=== PATIENT | female | born 1980 | race Caucasian/White ===

== ENCOUNTER 2022-12-20 22:29 | Inpatient (IN) | payer OTHER, SELFPAY ==
[2022-12-20 22:45] VITALS: BP 142/68; PULSE 89; RESP 16; TEMP 36.6; O2SAT 95
[2022-12-20 23:32] VITALS: BMI 26.2
[2022-12-20] MEDS: traZODone HCL 50 MG TABLET PO (23:38)
[2022-12-20] MEDS: hydrOXYzine HCL 25 MG TABLET PO (23:38)
--- NOTE | 2022-12-21 01:22 | PC.ADMIT ---
Addendum entered by Sarah Jung 12/21/22 02:15: Wilmar was admitted to [facility] from [facility] ER, arrived on unit at 2240 via stretcher accompanied by EMS staff. CV signed prior to coming on to the unit. Covid-19 negative, labs WNL. Admit diagnosis PTSD; Bipolar disorder; anxiety. Medical diagnosis includes pancreatitis (requires low fat diet), thyroid disease; osteopenia/osteoporosis; Heart disorder/palpitations; asthma; gastroparesis; fibromyalgia; mixed connective tissue disease; endometriosis and lumbar disc prolapse. Reason for [facility] admit was increased feelings of anxiety, and feeling overwhelmed R/T PTSD symptoms. She has a history of SIB (cutting), urges increased, chronic presence of passive SI, no plan. Wilmar reports decompensation for 2 weeks. She was engaged in admission assessment, ad-dima; A/O x 3, skin/sharps check completed, independent with ADL's, no skin integrity impairment, multiple tattoos; denied SI/AVH, SIB urge present, I want to cut. verbalized she is able to ignore urge and will contact staff if urge becomes overwhelming. Prescribed HS meds given prior to transfer, prn for insomnia given. Unit tour given. She called her before going to bed. Hospitalist notified. Plan of care initiated, 15 min unit safety observation. Original Note: Wilmar was admitted to [facility] from [facility] ER, arrived on unit at 2240 via stretcher accompanied by EMS staff. Covid-19 negative, labs WNL. Admit diagnosis PTSD; Bipolar disorder; anxiety. Medical diagnosis includes pancreatitis (requires low fat diet), thyroid disease; osteopenia/osteoporosis; Heart disorder/palpitations; asthma; gastroparesis; fibromyalgia; mixed connective tissue disease; endometriosis and lumbar disc prolapse. Reason for [facility] admit was increased feelings of anxiety, and feeling overwhelmed R/T PTSD symptoms. She has a history of SIB (cutting), urges increased, chronic presence of passive SI, no plan. Wilmar reports decompensation for 2 weeks. She was engaged in admission assessment, ad-dima; A/O x 3, skin/sharps check completed, independent with ADL's, no skin integrity impairment, multiple tattoos; denied SI/AVH, SIB urge present, I want to cut. verbalized she is able to ignore urge and will contact staff if urge becomes overwhelming. Prescribed HS meds given prior to transfer, prn for insomnia given. Unit tour given. She called her before going to bed. Hospitalist notified. Plan of care initiated, 15 min unit safety observation.
[2022-12-21 07:05] LABS: Lithium 0.39 mmol/L (0.60-1.20)
[2022-12-21 07:15] LABS: Alanine Aminotransferase 17 U/L (0-31); Albumin Level 4.4 g/dL (3.5-5.0); Alkaline Phosphatase 84 U/L (39-117); Anion Gap 11 (12-20); Aspartate Amino Transferase 16 U/L (5-31); Bilirubin Total 0.6 mg/dL (0.0-1.0); Blood Urea Nitrogen 10 mg/dL (9-16); Calcium 9.7 mg/dL (8.4-10.2); Carbon Dioxide 29 mmol/L (22-29); Chloride 106 mmol/L (96-108); Cholesterol 194 mg/dL; Creatinine Clr Calc Pharmacy 93.3; Estimated Glomerular Filt Rate > 60; Glucose Fasting 108 mg/dL (60-99); HDL Cholesterol 39 mg/dL; LDL Cholesterol Calculated 143 mg/dl; Potassium 4.1 mmol/L (3.3-5.1); Sodium 142 mmol/L (135-145); Total Protein 7.2 g/dL (6.5-8.0); Triglycerides 64 mg/dL
[2022-12-21 10:24] VITALS: BP 122/84; PULSE 124; RESP 18; TEMP 36.6; O2SAT 98
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
[2022-12-21] MEDS: hydrOXYzine HCL 25 MG TABLET PO (11:42)
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
[2022-12-21] MEDS: LORazepam 1 MG TABLET PO ×2 (14:22→22:10)
[2022-12-21] MEDS: QUEtiapine Fumarate 50 MG TABLET PO ×2 (14:22→22:09)
[2022-12-21 20:20] VITALS: BP 113/75; PULSE 111; RESP 18; TEMP 36.6; O2SAT 99
[2022-12-21] MEDS: QUEtiapine Fumarate 50 MG TABLET 150 MG PO (22:09)
[2022-12-21] MEDS: Lithium Carbonate 300 MG TABLET 600 MG PO (22:09)
[2022-12-21] MEDS: traZODone HCL 50 MG TABLET PO (22:12)
[2022-12-22] MEDS: QUEtiapine Fumarate 50 MG TABLET PO ×3 (09:37→21:44)
[2022-12-22 09:40] VITALS: BP 117/77; PULSE 139; RESP 18; TEMP 36.3; O2SAT 98
[2022-12-22] MEDS: LORazepam 1 MG TABLET PO ×3 (09:40→21:44)
--- NOTE | 2022-12-22 10:58 | P.PNPSI_ITS ---
Subjective Subjective Date of Service: 12/22/22 Reason For Visit: Unspecified Stress and Trauma related disorder Subjective Notes: Conditional Voluntary Interim History: The nursing staff reported the patient slept well needed and p.r.n. at night. She remains dysphoric but able to cope with the stressors. On interview the patient denies new symptoms still dysphoric, very labile mood, tearful at times. NO side effects with the recent change of medications. Mental Status Exam Mental Status Exam Patient Appearance: Well Grooomed and Appropriate Patient Orientation: Person and Situation Level of Consciousness: Awake and Appropriate Patient Behavior: Passive Mood Description: Withdrawn Affect Description: Constricted Patient Cognition Impaired: Yes Ability to Follow Directions: Good Speech Pattern: Clear Hallucinations: None Delusions: Not Present Thought Process: Linear Thought Content: positive for Bryce and positive for Circumstantial Judgement: Fair Diagnostics Vital Signs (24Hr): Vital Signs - 24 hr 12/21/22 20:20 12/22/22 09:40 Temperature 97.9 F 97.3 F Pulse Rate 111 H 139 H Respiratory Rate 18 18 Blood Pressure 113/75 117/77 Pulse Oximetry 99 98 Oxygen Delivery Method Room Air Room Air BMI result Body Mass Index 26.2 Labs 12/21/22 06:42 Labs: Laboratory Results - last 48 hr 12/21/22 12/21/22 06:42 06:42 Sodium 142 Potassium 4.1 Chloride 106 Carbon Dioxide 29 Anion Gap 11 L BUN 10 Creatinine 0.77 Estim Creat Clear Calc 93.3 Estimated GFR > 60 Fasting Glucose 108 H Calcium 9.7 Total Bilirubin 0.6 AST 16 ALT 17 Alkaline Phosphatase 84 Total Protein 7.2 Albumin 4.4 Triglycerides 64 Cholesterol 194 LDL Cholesterol, Calc 143 HDL Cholesterol 39 [place] 0.39 L Medications Medications Current Medications Acetaminophen (Acetaminophen 325 Mg Tablet) 650 mg PO Q6H PRN PRN Reason: Headache/Pain Mild Scale (1-3) Al Hydroxide/Mg Hydroxide (Magnesium Hydrox/Alum Hydrox 30 Ml Oral.Susp) 30 ml PO Q6H PRN PRN Reason: Heartburn/Nausea Albuterol Sulfate (Albuterol Sulfate 90 Mcg 8 Gm Inhaler) 2 puff INHALE QID PRN PRN Reason: wheezing Hydroxyzine HCl (Hydroxyzine Hcl 25 Mg Tablet) 25 mg PO Q6H PRN PRN Reason: Anxiety Last Admin: 12/21/22 11:42 Dose: 25 mg [place] Carbonate ([place] Carbonate 300 Mg Tablet) 600 mg PO BEDTIME ELTON Last Admin: 12/21/22 22:09 Dose: 600 mg Lorazepam (Lorazepam 1 Mg Tablet) 1 mg PO BEDTIME ELTON Last Admin: 12/21/22 22:10 Dose: 1 mg Lorazepam (Lorazepam 1 Mg Tablet) 1 mg PO Q6H PRN PRN Reason: severe anxiety Last Admin: 12/22/22 09:40 Dose: 1 mg Magnesium Hydroxide (Milk Of Magnesia 30 Ml Oral.Susp) 30 ml PO DAILY PRN PRN Reason: Constipation Quetiapine Fumarate (Quetiapine Fumarate 50 Mg Tablet) 150 mg PO BEDTIME ELTON Last Admin: 12/21/22 22:09 Dose: 150 mg Quetiapine Fumarate (Quetiapine Fumarate 50 Mg Tablet) 50 mg PO TID ELTON Last Admin: 12/22/22 09:37 Dose: 50 mg Trazodone HCl (Trazodone Hcl 50 Mg Tablet) 50 mg PO BEDTIME MRX1 PRN PRN Reason: Insomnia Last Admin: 12/21/22 22:12 Dose: 50 mg Allergies Allergies Allergy/AdvReac Type Severity Reaction Status Date / Time Beta-Blockers Allergy Hives Verified 12/21/22 01:52 (Beta-Adrenergic Bloc cephalexin [From Keflex] Allergy Vomiting Verified 12/21/22 01:52 Cephalosporins Allergy Nausea and Verified 12/21/22 01:52 Vomiting erythromycin base Allergy Hives Verified 12/21/22 01:52 Penicillins [PCN] Allergy Nausea and Verified 12/21/22 01:52 Vomiting shellfish derived Allergy Anaphylaxis Verified 12/21/22 00:07 strawberry Allergy Anaphylaxis Verified 12/21/22 00:07 tomato Allergy Anaphylaxis Verified 12/21/22 00:07 verapamil Allergy Hives Verified 12/21/22 01:52 latex AdvReac Swelling Verified 12/21/22 01:52 Assessment & Plan Assessment & Plan (1) Bipolar disorder: Status: Acute Code(s): F31.9 - Bipolar disorder, unspecified (2) Posttraumatic stress disorder: Status: Acute Code(s): F43.10 - Post-traumatic stress disorder, unspecified (3) Personality disorder: Status: Acute Code(s): F60.9 - Personality disorder, unspecified Plan The patient is an adult female with a long history of PTSD, cluster B personality traits and bipolar disorder who was admitted into the facility for exacerbation of depression for the last 2 week with neurovegetative symptoms and suicidal ideation. Recently her outpatient psychiatrist tried to start her on lithium. Plan 1. Gather collateral information. 2. Continue lithium 600 mg p.o. q.h.s.. 3. Continue Seroquel 150 p.o. q.h.s. and 50 p.o. t.i.d. as per med reconciliation. 4. At the low dose of Ativan p.r.n. for severe anxiety. 5. Reassessment with results. 6. [place] level on 2 days AM. TSH, Lith and BMP Reason for continued inpatient stay Substantial Risk for: inability to function, rapid decompensation and med/psych decompensation Time Spent With Patient Time: Total time managing care of this patient today __20__ minutes.
[2022-12-22 21:35] VITALS: BP 131/77; PULSE 113; RESP 16; TEMP 35.8; O2SAT 100
[2022-12-22] MEDS: Lithium Carbonate 300 MG TABLET 600 MG PO (21:44)
[2022-12-22] MEDS: traZODone HCL 50 MG TABLET PO (21:44)
[2022-12-22] MEDS: Prazosin HCL 1 MG CAPSULE 2 MG PO (21:44)
[2022-12-22] MEDS: QUEtiapine Fumarate 50 MG TABLET 150 MG PO (21:44)
[2022-12-23] MEDS: Acetaminophen 325 MG TABLET 650 MG PO (06:58)
[2022-12-23 08:44] VITALS: BP 121/68; PULSE 110; RESP 18; TEMP 36.6; O2SAT 99
[2022-12-23] MEDS: QUEtiapine Fumarate 50 MG TABLET PO ×3 (09:01→20:44)
[2022-12-23] MEDS: LORazepam 1 MG TABLET PO ×3 (11:44→20:44)
[2022-12-23] MEDS: hydrOXYzine HCL 25 MG TABLET PO ×2 (14:31→20:45)
--- NOTE | 2022-12-23 16:44 | HO.PSYCHPN ---
Subjective Subjective Date of Service: 12/23/22 Reason For Visit: Unspecified Stress and Trauma related disorder Interim History: reporting most medications have not worked to help with her PTSD Sx and insomnia. agrees to increase prazosin to 3 mg tonight. denies SI but endorses SIBI, which she reports is daily. discussion held re best Txs for PTSD and SIB, i.e. EBTs for PTSD and DBT. pt encouraged to pursue those treatments after discharge. per staff, intrusive thoughts of self-harm. nightmares. racing thoughts. flashbacks. started on prazosin last night without effect. Mental Status Exam Mental Status Exam Narrative: tattoos. adequately dressed and groomed. cooperative. no PMA/PMR. speech nml rate, amount, loudness, tone, latency. thoughts linear and logical. affect constricted, normo-intense, non-labile. mood subdued. denies SI. +SIBI, daily, chronic. Diagnostics Vital Signs (24Hr): Vital Signs - 24 hr 12/22/22 21:35 12/23/22 08:44 Temperature 96.5 F L 97.8 F Pulse Rate 113 H 110 H Respiratory Rate 16 18 Blood Pressure 131/77 121/68 Pulse Oximetry 100 99 Oxygen Delivery Method Room Air Room Air BMI result Body Mass Index 26.2 Labs 12/21/22 06:42 Medications Medications Current Medications Acetaminophen (Acetaminophen 325 Mg Tablet) 650 mg PO Q6H PRN PRN Reason: Headache/Pain Mild Scale (1-3) Last Admin: 12/23/22 06:58 Dose: 650 mg Al Hydroxide/Mg Hydroxide (Magnesium Hydrox/Alum Hydrox 30 Ml Oral.Susp) 30 ml PO Q6H PRN PRN Reason: Heartburn/Nausea Albuterol Sulfate (Albuterol Sulfate 90 Mcg 8 Gm Inhaler) 2 puff INHALE QID PRN PRN Reason: wheezing Hydroxyzine HCl (Hydroxyzine Hcl 25 Mg Tablet) 25 mg PO Q6H PRN PRN Reason: Anxiety Last Admin: 12/23/22 14:31 Dose: 25 mg [place] Carbonate ([place] Carbonate 300 Mg Tablet) 600 mg PO BEDTIME [place] Last Admin: 12/22/22 21:44 Dose: 600 mg Lorazepam (Lorazepam 1 Mg Tablet) 1 mg PO BEDTIME [place] Last Admin: 12/22/22 21:44 Dose: 1 mg Lorazepam (Lorazepam 1 Mg Tablet) 1 mg PO Q6H PRN PRN Reason: severe anxiety Last Admin: 12/23/22 11:44 Dose: 1 mg Magnesium Hydroxide (Milk Of Magnesia 30 Ml Oral.Susp) 30 ml PO DAILY PRN PRN Reason: Constipation Prazosin HCl (Prazosin Hcl 1 Mg Capsule) 3 mg PO BEDTIME [place]; Protocol Quetiapine Fumarate (Quetiapine Fumarate 50 Mg Tablet) 150 mg PO BEDTIME LETON Last Admin: 12/22/22 21:44 Dose: 150 mg Quetiapine Fumarate (Quetiapine Fumarate 50 Mg Tablet) 50 mg PO TID [place] Last Admin: 12/23/22 14:21 Dose: 50 mg Trazodone HCl (Trazodone Hcl 50 Mg Tablet) 50 mg PO BEDTIME MRX1 PRN PRN Reason: Insomnia Last Admin: 12/22/22 21:44 Dose: 50 mg Allergies Allergies Allergy/AdvReac Type Severity Reaction Status Date / Time Beta-Blockers Allergy Hives Verified 12/21/22 01:52 (Beta-Adrenergic Bloc cephalexin [From Keflex] Allergy Vomiting Verified 12/21/22 01:52 Cephalosporins Allergy Nausea and Verified 12/21/22 01:52 Vomiting erythromycin base Allergy Hives Verified 12/21/22 01:52 Penicillins [PCN] Allergy Nausea and Verified 12/21/22 01:52 Vomiting shellfish derived Allergy Anaphylaxis Verified 12/21/22 00:07 strawberry Allergy Anaphylaxis Verified 12/21/22 00:07 tomato Allergy Anaphylaxis Verified 12/21/22 00:07 verapamil Allergy Hives Verified 12/21/22 01:52 latex AdvReac Swelling Verified 12/21/22 01:52 Assessment & Plan Assessment & Plan (1) Bipolar disorder: Status: Acute Code(s): F31.9 - Bipolar disorder, unspecified (2) Posttraumatic stress disorder: Status: Acute Code(s): F43.10 - Post-traumatic stress disorder, unspecified (3) Personality disorder: Status: Acute Code(s): F60.9 - Personality disorder, unspecified Plan The patient is an adult female with a long history of PTSD, cluster B personality traits and bipolar disorder who was admitted into the facility for exacerbation of depression for the last 2 week with neurovegetative symptoms and suicidal ideation. Recently her outpatient psychiatrist tried to start her on lithium. Plan 1. Gather collateral information. 2. Continue lithium 600 mg p.o. q.h.s.. 3. Continue Seroquel 150 p.o. q.h.s. and 50 p.o. t.i.d. as per med reconciliation. 4. At the low dose of Ativan p.r.n. for severe anxiety. 5. Reassessment with results. 6. [place] level on 2 days AM. TSH, Lith and BMP 12/23: continue prazosin titration to 3 mg tonight. otherwise continue current mgmt. no SI. +SIBI, which is daily at baseline. Reason for continued inpatient stay Substantial Risk for: harm to self, inability to function and rapid decompensation Time Spent With Patient Time: Total time managing care of this patient today __25__ minutes.
[2022-12-23 20:35] VITALS: BP 125/79; PULSE 122; RESP 18; TEMP 36.6; O2SAT 97
[2022-12-23] MEDS: Lithium Carbonate 300 MG TABLET 600 MG PO (20:44)
[2022-12-23] MEDS: QUEtiapine Fumarate 50 MG TABLET 150 MG PO (20:44)
[2022-12-23] MEDS: traZODone HCL 50 MG TABLET PO (20:44)
[2022-12-23] MEDS: Prazosin HCL 1 MG CAPSULE 3 MG PO (20:45)
[2022-12-24] MEDS: hydrOXYzine HCL 25 MG TABLET PO ×2 (04:03→09:19)
[2022-12-24 09:00] VITALS: BP 123/62; PULSE 130; RESP 16; TEMP 36.6; O2SAT 97
[2022-12-24] MEDS: QUEtiapine Fumarate 50 MG TABLET PO ×3 (09:01→20:52)
[2022-12-24 12:05] VITALS: BP 143/86; PULSE 121; O2SAT 99
[2022-12-24] MEDS: Prazosin HCL 1 MG CAPSULE PO ×2 (12:06→14:58)
[2022-12-24] MEDS: LORazepam 1 MG TABLET PO ×3 (12:10→20:51)
--- NOTE | 2022-12-24 14:34 | HO.PSYCHPN ---
Subjective Subjective Date of Service: 12/24/22 Reason For Visit: Unspecified Stress and Trauma related disorder Interim History: reporting SIBI worse today. tearful, feeling frustrated at continued/worsened Sx. had a couple nightmares last night, agreeable to increase prazosin to 4 mg at HS. also reporting hydroxyzine 25 inadequate, agrees to trial of 50 mg each dose. for daytime anxiety, agrees to have doses of prazosin 1 mg scheduled at 0900 and 1500. per staff, c/o poor sleep 2/2 uncomfortable beds. passive SI. no plans. awakened a couple of times overnight. Mental Status Exam Mental Status Exam Narrative: tattoos. adequately dressed and groomed. cooperative. no PMA/PMR. speech nml rate, amount, loudness, tone, latency. thoughts linear and logical. affect constricted, normo-intense, min-labile (some teariness). mood depressed and anxious. no SI/HI/AVH expressed. +SIBI, daily, chronic, worse today than yesterday. Diagnostics Vital Signs (24Hr): Vital Signs - 24 hr 12/23/22 20:35 12/24/22 09:00 12/24/22 12:05 Temperature 97.9 F 97.8 F Pulse Rate 122 H 130 H 121 H Respiratory Rate 18 16 Blood Pressure 125/79 123/62 143/86 H Pulse Oximetry 97 97 99 Oxygen Delivery Method Room Air Room Air BMI result Body Mass Index 26.2 Labs 12/21/22 06:42 Medications Medications Current Medications Acetaminophen (Acetaminophen 325 Mg Tablet) 650 mg PO Q6H PRN PRN Reason: Headache/Pain Mild Scale (1-3) Last Admin: 12/23/22 06:58 Dose: 650 mg Al Hydroxide/Mg Hydroxide (Magnesium Hydrox/Alum Hydrox 30 Ml Oral.Susp) 30 ml PO Q6H PRN PRN Reason: Heartburn/Nausea Albuterol Sulfate (Albuterol Sulfate 90 Mcg 8 Gm Inhaler) 2 puff INHALE QID PRN PRN Reason: wheezing Hydroxyzine HCl (Hydroxyzine Hcl 50 Mg Tablet) 50 mg PO Q4H PRN PRN Reason: Anxiety [place] Carbonate ([place] Carbonate 300 Mg Tablet) 600 mg PO BEDTIME [place] Last Admin: 12/23/22 20:44 Dose: 600 mg Lorazepam (Lorazepam 1 Mg Tablet) 1 mg PO BEDTIME [place] Last Admin: 12/23/22 20:44 Dose: 1 mg Lorazepam (Lorazepam 1 Mg Tablet) 1 mg PO Q6H PRN PRN Reason: severe anxiety Last Admin: 12/24/22 12:10 Dose: 1 mg Magnesium Hydroxide (Milk Of Magnesia 30 Ml Oral.Susp) 30 ml PO DAILY PRN PRN Reason: Constipation Prazosin HCl (Prazosin Hcl 1 Mg Capsule) 4 mg PO BEDTIME [place]; Protocol Prazosin HCl (Prazosin Hcl 1 Mg Capsule) 1 mg PO BID@0900,1500 [place]; Protocol Last Admin: 12/24/22 12:06 Dose: 1 mg Quetiapine Fumarate (Quetiapine Fumarate 50 Mg Tablet) 150 mg PO BEDTIME [place] Last Admin: 12/23/22 20:44 Dose: 150 mg Quetiapine Fumarate (Quetiapine Fumarate 50 Mg Tablet) 50 mg PO TID [place] Last Admin: 12/24/22 09:01 Dose: 50 mg Trazodone HCl (Trazodone Hcl 50 Mg Tablet) 50 mg PO BEDTIME MRX1 PRN PRN Reason: Insomnia Last Admin: 12/23/22 20:44 Dose: 50 mg Allergies Allergies Allergy/AdvReac Type Severity Reaction Status Date / Time Beta-Blockers Allergy Hives Verified 12/21/22 01:52 (Beta-Adrenergic Bloc cephalexin [From Keflex] Allergy Vomiting Verified 12/21/22 01:52 Cephalosporins Allergy Nausea and Verified 12/21/22 01:52 Vomiting erythromycin base Allergy Hives Verified 12/21/22 01:52 Penicillins [PCN] Allergy Nausea and Verified 12/21/22 01:52 Vomiting shellfish derived Allergy Anaphylaxis Verified 12/21/22 00:07 strawberry Allergy Anaphylaxis Verified 12/21/22 00:07 tomato Allergy Anaphylaxis Verified 12/21/22 00:07 verapamil Allergy Hives Verified 12/21/22 01:52 latex AdvReac Swelling Verified 12/21/22 01:52 Assessment & Plan Assessment & Plan (1) Bipolar disorder: Status: Acute Code(s): F31.9 - Bipolar disorder, unspecified (2) Posttraumatic stress disorder: Status: Acute Code(s): F43.10 - Post-traumatic stress disorder, unspecified (3) Personality disorder: Status: Acute Code(s): F60.9 - Personality disorder, unspecified Plan The patient is an adult female with a long history of PTSD, cluster B personality traits and bipolar disorder who was admitted into the facility for exacerbation of depression for the last 2 week with neurovegetative symptoms and suicidal ideation. Recently her outpatient psychiatrist tried to start her on lithium. Plan 1. Gather collateral information. 2. Continue lithium 600 mg p.o. q.h.s.. 3. Continue Seroquel 150 p.o. q.h.s. and 50 p.o. t.i.d. as per med reconciliation. 4. At the low dose of Ativan p.r.n. for severe anxiety. 5. Reassessment with results. 6. [place] level on 2 days AM. TSH, Lith and BMP 12/23: continue prazosin titration to 3 mg tonight. otherwise continue current mgmt. no SI. +SIBI, which is daily at baseline. 12/24: continue prazosin titration to 4 mg tonight. increase hydroxyzine PRNs from 25 mg each to 50 mg each. start prazosin 1 mg at 0900 and 1500 for chronic anxiety. Reason for continued inpatient stay Substantial Risk for: harm to self, inability to function and rapid decompensation Time Spent With Patient Time: Total time managing care of this patient today __25__ minutes.
[2022-12-24 20:45] VITALS: BP 125/71; PULSE 99; RESP 18; TEMP 36.6; O2SAT 99
[2022-12-24] MEDS: Prazosin HCL 1 MG CAPSULE 4 MG PO (20:51)
[2022-12-24] MEDS: Lithium Carbonate 300 MG TABLET 600 MG PO (20:51)
[2022-12-24] MEDS: traZODone HCL 50 MG TABLET PO ×2 (20:51→23:15)
[2022-12-24] MEDS: QUEtiapine Fumarate 50 MG TABLET 150 MG PO (20:52)
[2022-12-24] MEDS: hydrOXYzine HCL 50 MG TABLET PO (23:15)
[2022-12-25 08:22] VITALS: BP 138/79; PULSE 118; RESP 18; TEMP 36.6; O2SAT 97
[2022-12-25] MEDS: Prazosin HCL 1 MG CAPSULE PO (08:43)
[2022-12-25] MEDS: QUEtiapine Fumarate 50 MG TABLET PO ×3 (08:43→20:32)
[2022-12-25] MEDS: hydrOXYzine HCL 50 MG TABLET PO ×4 (08:47→22:58)
[2022-12-25 09:06] LABS: Lithium 0.43 mmol/L (0.60-1.20)
[2022-12-25 09:07] LABS: Lithium 0.45 mmol/L (0.60-1.20)
[2022-12-25 09:18] LABS: Anion Gap 14 (12-20); Blood Urea Nitrogen 13 mg/dL (9-16); Calcium 9.9 mg/dL (8.4-10.2); Carbon Dioxide 28 mmol/L (22-29); Chloride 103 mmol/L (96-108); Creatinine Clr Calc Pharmacy 93.3; Estimated Glomerular Filt Rate > 60; Glucose Random 113 mg/dL (60-115); Potassium 4.5 mmol/L (3.3-5.1); Sodium 140 mmol/L (135-145)
[2022-12-25 09:37] LABS: Thyroid Stimulating Hormone 1.33 uIU/mL (0.32-4.0)
[2022-12-25] MEDS: LORazepam 1 MG TABLET PO ×2 (10:19→20:32)
[2022-12-25 15:11] VITALS: BP 105/63; PULSE 117; RESP 16
[2022-12-25] MEDS: Prazosin HCL 1 MG CAPSULE 2 MG PO (15:14)
--- NOTE | 2022-12-25 15:20 | P.PNPSI_ITS ---
Subjective Subjective Date of Service: 12/25/22 Reason For Visit: Unspecified Stress and Trauma related disorder Interim History: tearful. feels anxiety meds aren't working. denies side effects from prazosin, agrees to increase prazosin from to 2/10/06 today. per staff, visile, tea rful. goal-oriented. racing thoughts. anxiety meds not helping. eating well. poor sleep 2/2 nightmares. +SI, no plan. up x1 overnight, otherwise appeared to have slept. Mental Status Exam Mental Status Exam Narrative: tattoos. adequately dressed and groomed. cooperative. no PMA/PMR. speech nml rate, amount, loudness, tone, latency. thoughts linear and logical. affect constricted, normo-intense, min-labile (some teariness). mood depressed and anxious. no SI/SIBI/HI/AVH expressed. Diagnostics Vital Signs (24Hr): Vital Signs - 24 hr 12/24/22 20:45 12/25/22 08:22 12/25/22 15:11 Temperature 97.9 F 97.8 F Pulse Rate 99 118 H 117 H Respiratory Rate 18 18 16 Blood Pressure 125/71 138/79 105/63 Pulse Oximetry 99 97 Oxygen Delivery Method Room Air Room Air BMI result Body Mass Index 26.2 Labs 12/25/22 08:40 Labs: Laboratory Results - last 48 hr 12/25/22 12/25/22 12/25/22 08:40 08:40 08:40 Sodium 140 Potassium 4.5 Chloride 103 Carbon Dioxide 28 Anion Gap 14 BUN 13 Creatinine 0.77 Estim Creat Clear Calc 93.3 Estimated GFR > 60 Random Glucose 113 Calcium 9.9 TSH 1.33 [place] 0.45 L 0.43 L Medications Medications Current Medications Acetaminophen (Acetaminophen 325 Mg Tablet) 650 mg PO Q6H PRN PRN Reason: Headache/Pain Mild Scale (1-3) Last Admin: 12/23/22 06:58 Dose: 650 mg Al Hydroxide/Mg Hydroxide (Magnesium Hydrox/Alum Hydrox 30 Ml Oral.Susp) 30 ml PO Q6H PRN PRN Reason: Heartburn/Nausea Albuterol Sulfate (Albuterol Sulfate 90 Mcg 8 Gm Inhaler) 2 puff INHALE QID PRN PRN Reason: wheezing Hydroxyzine HCl (Hydroxyzine Hcl 50 Mg Tablet) 50 mg PO Q4H PRN PRN Reason: Anxiety Last Admin: 12/25/22 12:31 Dose: 50 mg [place] Carbonate ([place] Carbonate 300 Mg Tablet) 600 mg PO BEDTIME [place] Last Admin: 12/24/22 20:51 Dose: 600 mg Lorazepam (Lorazepam 1 Mg Tablet) 1 mg PO BEDTIME [place] Last Admin: 12/24/22 20:51 Dose: 1 mg Lorazepam (Lorazepam 1 Mg Tablet) 1 mg PO Q6H PRN PRN Reason: severe anxiety Last Admin: 12/25/22 10:19 Dose: 1 mg Magnesium Hydroxide (Milk Of Magnesia 30 Ml Oral.Susp) 30 ml PO DAILY PRN PRN Reason: Constipation Prazosin HCl (Prazosin Hcl 5 Mg Capsule) 5 mg PO BEDTIME [place]; Protocol Prazosin HCl (Prazosin Hcl 1 Mg Capsule) 2 mg PO BID@0900,1500 [facility]; Protocol Last Admin: 12/25/22 15:14 Dose: 2 mg Quetiapine Fumarate (Quetiapine Fumarate 50 Mg Tablet) 150 mg PO BEDTIME [place] Last Admin: 12/24/22 20:52 Dose: 150 mg Quetiapine Fumarate (Quetiapine Fumarate 50 Mg Tablet) 50 mg PO TID [place] Last Admin: 12/25/22 15:14 Dose: 50 mg Trazodone HCl (Trazodone Hcl 50 Mg Tablet) 50 mg PO BEDTIME MRX1 PRN PRN Reason: Insomnia Last Admin: 12/24/22 23:15 Dose: 50 mg Allergies Allergies Allergy/AdvReac Type Severity Reaction Status Date / Time Beta-Blockers Allergy Hives Verified 12/21/22 01:52 (Beta-Adrenergic Bloc cephalexin [From Keflex] Allergy Vomiting Verified 12/21/22 01:52 Cephalosporins Allergy Nausea and Verified 12/21/22 01:52 Vomiting erythromycin base Allergy Hives Verified 12/21/22 01:52 Penicillins [PCN] Allergy Nausea and Verified 12/21/22 01:52 Vomiting shellfish derived Allergy Anaphylaxis Verified 12/21/22 00:07 strawberry Allergy Anaphylaxis Verified 12/21/22 00:07 tomato Allergy Anaphylaxis Verified 12/21/22 00:07 verapamil Allergy Hives Verified 12/21/22 01:52 latex AdvReac Swelling Verified 12/21/22 01:52 Assessment & Plan Assessment & Plan (1) Bipolar disorder: Status: Acute Code(s): F31.9 - Bipolar disorder, unspecified (2) Posttraumatic stress disorder: Status: Acute Code(s): F43.10 - Post-traumatic stress disorder, unspecified (3) Personality disorder: Status: Acute Code(s): F60.9 - Personality disorder, unspecified Plan The patient is an adult female with a long history of PTSD, cluster B personality traits and bipolar disorder who was admitted into the facility for exacerbation of depression for the last 2 week with neurovegetative symptoms and suicidal ideation. Recently her outpatient psychiatrist tried to start her on lithium. Plan 1. Gather collateral information. 2. Continue lithium 600 mg p.o. q.h.s.. 3. Continue Seroquel 150 p.o. q.h.s. and 50 p.o. t.i.d. as per med reconciliation. 4. At the low dose of Ativan p.r.n. for severe anxiety. 5. Reassessment with results. 6. [place] level on 2 days AM. TSH, Lith and BMP 12/23: continue prazosin titration to 3 mg tonight. otherwise continue current mgmt. no SI. +SIBI, which is daily at baseline. 12/24: continue prazosin titration to 4 mg tonight. increase hydroxyzine PRNs from 25 mg each to 50 mg each. start prazosin 1 mg at 0900 and 1500 for chronic anxiety. 12/25: increase prazosin from 4 to 2//5. otherwise continue current regimen. LM with maciej cordero pt's outpt prescriber, at [phone]. Reason for continued inpatient stay Substantial Risk for: harm to self, inability to function and rapid decompensation Time Spent With Patient Time: Total time managing care of this patient today _25___ minutes.
[2022-12-25 20:30] VITALS: BP 124/88; PULSE 114; RESP 16; TEMP 36.7; O2SAT 98
[2022-12-25] MEDS: QUEtiapine Fumarate 50 MG TABLET 150 MG PO (20:32)
[2022-12-25] MEDS: Lithium Carbonate 300 MG TABLET 600 MG PO (20:32)
[2022-12-25] MEDS: Prazosin HCL 5 MG CAPSULE PO (20:32)
[2022-12-25] MEDS: traZODone HCL 50 MG TABLET PO ×2 (20:53→22:58)
[2022-12-26] MEDS: Acetaminophen 325 MG TABLET 650 MG PO (04:35)
[2022-12-26] MEDS: LORazepam 1 MG TABLET PO ×3 (04:35→20:47)
[2022-12-26 07:00] VITALS: BMI 27.6
[2022-12-26 08:00] VITALS: BP 105/60; PULSE 110; RESP 18; TEMP 36.6; O2SAT 100
[2022-12-26] MEDS: QUEtiapine Fumarate 50 MG TABLET PO ×3 (08:25→23:29)
[2022-12-26] MEDS: Prazosin HCL 1 MG CAPSULE 2 MG PO ×2 (08:26→14:56)
[2022-12-26] MEDS: hydrOXYzine HCL 50 MG TABLET PO ×3 (09:33→19:55)
--- NOTE | 2022-12-26 15:28 | P.PNPSI_ITS ---
Subjective Subjective Date of Service: 12/26/22 Reason For Visit: Unspecified Stress and Trauma related disorder Interim History: calm, cooperative. states she is feeling less emotional today, unsure why. state she is still having overwhelming thoughts of cutting. agrees to increase HS prazosin to 6 mg. detailed discussion held re her Dx and the off- label use of lithium for various indications. Mental Status Exam Mental Status Exam Narrative: tattoos. adequately dressed and groomed. cooperative. no PMA/PMR. speech nml rate, amount, loudness, tone, latency. thoughts linear and logical. affect constricted, normo-intense, non-labile. mood depressed and anxious but feeling less emotional. no SI/SIBI/HI/AVH expressed. Diagnostics Vital Signs (24Hr): Vital Signs - 24 hr 12/25/22 20:30 12/26/22 08:00 Temperature 98.1 F 97.9 F Pulse Rate 114 H 110 H Respiratory Rate 16 18 Blood Pressure 124/88 105/60 Pulse Oximetry 98 100 Oxygen Delivery Method Room Air Room Air BMI result Body Mass Index 27.6 Labs 12/25/22 08:40 Labs: Laboratory Results - last 48 hr 12/25/22 12/25/22 12/25/22 08:40 08:40 08:40 Sodium 140 Potassium 4.5 Chloride 103 Carbon Dioxide 28 Anion Gap 14 BUN 13 Creatinine 0.77 Estim Creat Clear Calc 93.3 Estimated GFR > 60 Random Glucose 113 Calcium 9.9 TSH 1.33 [place] 0.45 L 0.43 L Medications Medications Current Medications Acetaminophen (Acetaminophen 325 Mg Tablet) 650 mg PO Q6H PRN PRN Reason: Headache/Pain Mild Scale (1-3) Last Admin: 12/26/22 04:35 Dose: 650 mg Al Hydroxide/Mg Hydroxide (Magnesium Hydrox/Alum Hydrox 30 Ml Oral.Susp) 30 ml PO Q6H PRN PRN Reason: Heartburn/Nausea Albuterol Sulfate (Albuterol Sulfate 90 Mcg 8 Gm Inhaler) 2 puff INHALE QID PRN PRN Reason: wheezing Hydroxyzine HCl (Hydroxyzine Hcl 50 Mg Tablet) 50 mg PO Q4H PRN PRN Reason: Anxiety Last Admin: 12/26/22 14:59 Dose: 50 mg [place] Carbonate ([place] Carbonate 300 Mg Tablet) 600 mg PO BEDTIME [place] Last Admin: 12/25/22 20:32 Dose: 600 mg Lorazepam (Lorazepam 1 Mg Tablet) 1 mg PO BEDTIME [place] Last Admin: 12/25/22 20:32 Dose: 1 mg Lorazepam (Lorazepam 1 Mg Tablet) 1 mg PO Q6H PRN PRN Reason: severe anxiety Last Admin: 12/26/22 11:45 Dose: 1 mg Magn[place] Hydroxide (Milk Of Magnesia 30 Ml Oral.Susp) 30 ml PO DAILY PRN PRN Reason: Constipation Prazosin HCl (Prazosin Hcl 1 Mg Capsule) 2 mg PO BID@0900,1500 [place]; Protocol Last Admin: 12/26/22 14:56 Dose: 2 mg Prazosin HCl (Prazosin Hcl 1 Mg Capsule) 1 mg PO BEDTIME [place] Prazosin HCl (Prazosin Hcl 5 Mg Capsule) 5 mg PO BEDTIME [place] Quetiapine Fumarate (Quetiapine Fumarate 50 Mg Tablet) 150 mg PO BEDTIME [place] Last Admin: 12/25/22 20:32 Dose: 150 mg Quetiapine Fumarate (Quetiapine Fumarate 50 Mg Tablet) 50 mg PO TID [place] Last Admin: 12/26/22 14:56 Dose: 50 mg Trazodone HCl (Trazodone Hcl 50 Mg Tablet) 50 mg PO BEDTIME MRX1 PRN PRN Reason: Insomnia Last Admin: 12/25/22 22:58 Dose: 50 mg Allergies Allergies Allergy/AdvReac Type Severity Reaction Status Date / Time Beta-Blockers Allergy Hives Verified 12/21/22 01:52 (Beta-Adrenergic Bloc cephalexin [From Keflex] Allergy Vomiting Verified 12/21/22 01:52 Cephalosporins Allergy Nausea and Verified 12/21/22 01:52 Vomiting erythromycin base Allergy Hives Verified 12/21/22 01:52 Penicillins [PCN] Allergy Nausea and Verified 12/21/22 01:52 Vomiting shellfish derived Allergy Anaphylaxis Verified 12/21/22 00:07 strawberry Allergy Anaphylaxis Verified 12/21/22 00:07 tomato Allergy Anaphylaxis Verified 12/21/22 00:07 verapamil Allergy Hives Verified 12/21/22 01:52 latex AdvReac Swelling Verified 12/21/22 01:52 Assessment & Plan Assessment & Plan (1) Bipolar disorder: Status: Acute Code(s): F31.9 - Bipolar disorder, unspecified (2) Posttraumatic stress disorder: Status: Acute Code(s): F43.10 - Post-traumatic stress disorder, unspecified (3) Personality disorder: Status: Acute Code(s): F60.9 - Personality disorder, unspecified Plan The patient is an adult female with a long history of PTSD, cluster B personality traits and bipolar disorder who was admitted into the facility for exacerbation of depression for the last 2 week with neurovegetative symptoms and suicidal ideation. Recently her outpatient psychiatrist tried to start her on lithium. Plan 1. Gather collateral information. 2. Continue lithium 600 mg p.o. q.h.s.. 3. Continue Seroquel 150 p.o. q.h.s. and 50 p.o. t.i.d. as per med reconc iliation. 4. At the low dose of Ativan p.r.n. for severe anxiety. 5. Reassessment with results. 6. [place] level on 2 days AM. TSH, Lith and BMP 12/23: continue prazosin titration to 3 mg tonight. otherwise continue current mgmt. no SI. +SIBI, which is daily at baseline. 12/24: continue prazosin titration to 4 mg tonight. increase hydroxyzine PRNs from 25 mg each to 50 mg each. start prazosin 1 mg at 0900 and 1500 for chronic anxiety. 12/25: increase prazosin from to 2//. otherwise continue current regimen. LM with maciej mcdonald, pt's outpt prescriber, at [phone]. 12/26: increase prazosin from // --> 2//6. exchanging messages with Dr. Mcdonald. Patient educated on: diagnosis and medication risk/benefits Reason for continued inpatient stay Substantial Risk for: harm to self, inability to function and rapid decompensation Time Spent With Patient Time: Total time managing care of this patient today __35__ minutes.
[2022-12-26 20:15] VITALS: BP 121/81; PULSE 117; RESP 18; TEMP 36.2; O2SAT 98
[2022-12-26] MEDS: QUEtiapine Fumarate 50 MG TABLET 150 MG PO (20:47)
--- NOTE | 2022-12-26 22:41 | PC.NURSE ---
Wilmar is noted to be visible and social with select peers she is pleasant and cooperative upon approach. she c/o anxiety and was given Atarax with minimal effect, she was given her HS Seroquel and Ativan with positive effect. this information writer reviewed 4 square and pursed lip breathing techniques with the patient with the patient return demonstrating and stating understanding. this RN will also be reviewing visualization techniques prior to her retiring for the evening. monitor for safety, continue Plan of Care
[2022-12-26] MEDS: Prazosin HCL 1 MG CAPSULE PO (23:24)
[2022-12-26] MEDS: Prazosin HCL 5 MG CAPSULE PO (23:24)
[2022-12-26] MEDS: Lithium Carbonate 300 MG TABLET 600 MG PO (23:25)
[2022-12-26] MEDS: Cyproheptadine HCl 4 MG TABLET PO (23:25)
[2022-12-27] MEDS: traZODone HCL 50 MG TABLET PO (02:11)
[2022-12-27] MEDS: LORazepam 1 MG TABLET PO ×5 (02:11→22:51)
[2022-12-27 08:00] VITALS: BP 115/71; PULSE 136; RESP 16; TEMP 36.4; O2SAT 98
[2022-12-27] MEDS: Prazosin HCL 1 MG CAPSULE 2 MG PO ×2 (08:21→14:41)
[2022-12-27] MEDS: QUEtiapine Fumarate 50 MG TABLET PO ×3 (08:21→22:51)
[2022-12-27] MEDS: hydrOXYzine HCL 50 MG TABLET PO ×2 (08:26→15:44)
--- NOTE | 2022-12-27 16:44 | P.PNPSI_ITS ---
Subjective Subjective Date of Service: 12/27/22 Reason For Visit: Unspecified Stress and Trauma related disorder Interim History: pt continues to sleep inadequately. contact with dr. mcdonald last night discussed. agreeable to increase periactin to 8 mg tonight and prazosin to 8 mg as well. per staff, had a rough day yesterday. ruminating on her trauma. disrupted sleep. addicted to cutting. +SIBI. + grps. pleasant, polite, anxious/depressed. up for 2 hours in the middle of the night. Mental Status Exam Mental Status Exam Narrative: tattoos. adequately dressed and groomed. cooperative. no PMA/PMR. speech nml rate, amount, loudness, tone, latency. thoughts linear and logical. affect constricted, normo-intense, mod-labile (crying). mood depressed and anxious. +SIBI. no SI/HI/AVH expressed. Diagnostics Vital Signs (24Hr): Vital Signs - 24 hr 12/26/22 20:15 12/27/22 08:00 Temperature 97.2 F 97.6 F Pulse Rate 117 H 136 H Respiratory Rate 18 16 Blood Pressure 121/81 115/71 Pulse Oximetry 98 98 Oxygen Delivery Method Room Air Room Air BMI result Body Mass Index 27.6 Labs 12/25/22 08:40 Medications Medications Current Medications Acetaminophen (Acetaminophen 325 Mg Tablet) 650 mg PO Q6H PRN PRN Reason: Headache/Pain Mild Scale (1-3) Last Admin: 12/26/22 04:35 Dose: 650 mg Al Hydroxide/Mg Hydroxide (Magnesium Hydrox/Alum Hydrox 30 Ml Oral.Susp) 30 ml PO Q6H PRN PRN Reason: Heartburn/Nausea Albuterol Sulfate (Albuterol Sulfate 90 Mcg 8 Gm Inhaler) 2 puff INHALE QID PRN PRN Reason: wheezing Cyproheptadine HCl (Cyproheptadine Hcl 4 Mg Tablet) 8 mg PO BEDTIME [place] Hydroxyzine HCl (Hydroxyzine Hcl 50 Mg Tablet) 50 mg PO Q4H PRN PRN Reason: Anxiety Last Admin: 12/27/22 15:44 Dose: 50 mg [place] Carbonate ([place] Carbonate 300 Mg Tablet) 600 mg PO BEDTIME [place] Last Admin: 12/26/22 23:25 Dose: 600 mg Lorazepam (Lorazepam 1 Mg Tablet) 1 mg PO BEDTIME [place] Last Admin: 12/26/22 20:47 Dose: 1 mg Lorazepam (Lorazepam 1 Mg Tablet) 1 mg PO Q6H PRN PRN Reason: severe anxiety Last Admin: 12/27/22 15:44 Dose: 1 mg Magnesium Hydroxide (Milk Of Magnesia 30 Ml Oral.Susp) 30 ml PO DAILY PRN PRN Reason: Constipation Prazosin HCl (Prazosin Hcl 1 Mg Capsule) 2 mg PO BID@0900,1500 [place]; Protocol Last Admin: 12/27/22 14:41 Dose: 2 mg Prazosin HCl (Prazosin Hcl 5 Mg Capsule) 5 mg PO BEDTIME [place] Last Admin: 12/26/22 23:24 Dose: 5 mg Prazosin HCl (Prazosin Hcl 1 Mg Capsule) 3 mg PO BEDTIME [place] Quetiapine Fumarate (Quetiapine Fumarate 50 Mg Tablet) 150 mg PO BEDTIME [facility] Last Admin: 12/26/22 20:47 Dose: 150 mg Quetiapine Fumarate (Quetiapine Fumarate 50 Mg Tablet) 50 mg PO TID [facility] Last Admin: 12/27/22 14:41 Dose: 50 mg Trazodone HCl (Trazodone Hcl 50 Mg Tablet) 50 mg PO BEDTIME MRX1 PRN PRN Reason: Insomnia Last Admin: 12/27/22 02:11 Dose: 50 mg Allergies Allergies Allergy/AdvReac Type Severity Reaction Status Date / Time Beta-Blockers Allergy Hives Verified 12/21/22 01:52 (Beta-Adrenergic Bloc cephalexin [From Keflex] Allergy Vomiting Verified 12/21/22 01:52 Cephalosporins Allergy Nausea and Verified 12/21/22 01:52 Vomiting erythromycin base Allergy Hives Verified 12/21/22 01:52 Penicillins [PCN] Allergy Nausea and Verified 12/21/22 01:52 Vomiting shellfish derived Allergy Anaphylaxis Verified 12/21/22 00:07 strawberry Allergy Anaphylaxis Verified 12/21/22 00:07 tomato Allergy Anaphylaxis Verified 12/21/22 00:07 verapamil Allergy Hives Verified 12/21/22 01:52 latex AdvReac Swelling Verified 12/21/22 01:52 Assessment & Plan Assessment & Plan (1) Bipolar disorder: Status: Acute Code(s): F31.9 - Bipolar disorder, unspecified (2) Posttraumatic stress disorder: Status: Acute Code(s): F43.10 - Post-traumatic stress disorder, unspecified (3) Personality disorder: Status: Acute Code(s): F60.9 - Personality disorder, unspecified Plan The patient is an adult female with a long history of PTSD, cluster B personality traits and bipolar disorder who was admitted into the facility for exacerbation of depression for the last 2 week with neurovegetative symptoms and suicidal ideation. Recently her outpatient psychiatrist tried to start her on lithium. Plan 1. Gather collateral information. 2. Continue lithium 600 mg p.o. q.h.s.. 3. Continue Seroquel 150 p.o. q.h.s. and 50 p.o. t.i.d. as per med reconciliation. 4. At the low dose of Ativan p.r.n. for severe anxiety. 5. Reassessment with results. 6. [place] level on 2 days AM. TSH, Lith and BMP 12/23: continue prazosin titration to 3 mg tonight. otherwise continue current mgmt. no SI. +SIBI, which is daily at baseline. 12/24: continue prazosin titration to 4 mg tonight. increase hydroxyzine PRNs from 25 mg each to 50 mg each. start prazosin 1 mg at 0900 and 1500 for chronic anxiety. 12/25: increase prazosin from to /10/06. otherwise continue current regimen. LM with maciej mcdonald, pt's outpt prescriber, at [phone]. 12/26: increase prazosin from 10/03/ --> 2//6. exchanging messages with Dr. Mcdonald. 12/27: spoke with Dr. Mcdonald yesterday, periactin added per her plan. slept poorly again last night, periactin increased to 8 mg tonight and prazosin increased to 8 mg as well. SIBI continues. Reason for continued inpatient stay Substantial Risk for: harm to self, inability to function and rapid decompensation Time Spent With Patient Time: Total time managing care of this patient today __25__ minutes.
[2022-12-27 20:30] VITALS: BP 126/69; PULSE 122; RESP 18; TEMP 36.1; O2SAT 97
[2022-12-27] MEDS: Cyproheptadine HCl 4 MG TABLET 8 MG PO (22:49)
[2022-12-27] MEDS: QUEtiapine Fumarate 50 MG TABLET 150 MG PO (22:51)
[2022-12-27] MEDS: Prazosin HCL 1 MG CAPSULE 3 MG PO (22:52)
[2022-12-27] MEDS: Prazosin HCL 5 MG CAPSULE PO (22:52)
[2022-12-27] MEDS: Lithium Carbonate 300 MG TABLET 600 MG PO (22:53)
[2022-12-28 06:00] VITALS: BP 122/80; PULSE 122; RESP 18; TEMP 36.6; O2SAT 98
[2022-12-28] MEDS: LORazepam 1 MG TABLET PO ×4 (09:09→20:45)
[2022-12-28] MEDS: Prazosin HCL 1 MG CAPSULE 2 MG PO (09:09)
[2022-12-28] MEDS: QUEtiapine Fumarate 50 MG TABLET PO ×3 (09:09→21:14)
[2022-12-28] MEDS: Prazosin HCL 1 MG CAPSULE 3 MG PO (14:48)
[2022-12-28] MEDS: hydrOXYzine HCL 50 MG TABLET PO ×2 (16:23→21:06)
--- NOTE | 2022-12-28 16:52 | P.PNPSI_ITS ---
Subjective Subjective Date of Service: 12/28/22 Reason For Visit: Unspecified Stress and Trauma related disorder Interim History: states she had some nightmares but slept through the night. agreeable to increase prazosin at HS to 10 mg. also agreeable to increase daytime prazosin dosing to 3 mg each. denies any side effects from medication, BP does not appear to have dropped substantially. per staff, slept 6 hours overnight. anxious, tachy. depressed. visible. spending time collaging. Mental Status Exam Mental Status Exam Narrative: tattoos. adequately dressed and groomed. cooperative. no PMA/PMR. speech nml rate, amount, loudness, tone, latency. thoughts linear and logical. affect constricted, normo-intense, non-labile. mood depressed. no SI/SIBI/HI/AVH expressed. Diagnostics Vital Signs (24Hr): Vital Signs - 24 hr 12/27/22 20:30 12/28/22 06:00 Temperature 96.9 F 97.8 F Pulse Rate 122 H 122 H Respiratory Rate 18 18 Blood Pressure 126/69 122/80 Pulse Oximetry 97 98 Oxygen Delivery Method Room Air Room Air BMI result Body Mass Index 27.6 Labs 12/25/22 08:40 Medications Medications Current Medications Acetaminophen (Acetaminophen 325 Mg Tablet) 650 mg PO Q6H PRN PRN Reason: Headache/Pain Mild Scale (1-3) Last Admin: 12/26/22 04:35 Dose: 650 mg Al Hydroxide/Mg Hydroxide (Magnesium Hydrox/Alum Hydrox 30 Ml Oral.Susp) 30 ml PO Q6H PRN PRN Reason: Heartburn/Nausea Albuterol Sulfate (Albuterol Sulfate 90 Mcg 8 Gm Inhaler) 2 puff INHALE QID PRN PRN Reason: wheezing Cyproheptadine HCl (Cyproheptadine Hcl 4 Mg Tablet) 8 mg PO BEDTIME [place] Last Admin: 12/27/22 22:49 Dose: 8 mg Hydroxyzine HCl (Hydroxyzine Hcl 50 Mg Tablet) 50 mg PO Q4H PRN PRN Reason: Anxiety Last Admin: 12/28/22 16:23 Dose: 50 mg [place] Carbonate ([place] Carbonate 300 Mg Tablet) 600 mg PO BEDTIME [place] Last Admin: 12/27/22 22:53 Dose: 600 mg Lorazepam (Lorazepam 1 Mg Tablet) 1 mg PO BEDTIME [place] Last Admin: 12/27/22 22:51 Dose: 1 mg Lorazepam (Lorazepam 1 Mg Tablet) 1 mg PO Q6H PRN PRN Reason: severe anxiety Last Admin: 12/28/22 14:49 Dose: 1 mg Magnesium Hydroxide (Milk Of Magnesia 30 Ml Oral.Susp) 30 ml PO DAILY PRN PRN Reason: Constipation Prazosin HCl (Prazosin Hcl 5 Mg Capsule) 10 mg PO BEDTIME [place] Prazosin HCl (Prazosin Hcl 1 Mg Capsule) 3 mg PO BID@0900,1500 [place]; Protocol Last Admin: 12/28/22 14:48 Dose: 3 mg Quetiapine Fumarate (Quetiapine Fumarate 50 Mg Tablet) 150 mg PO BEDTIME [place] Last Admin: 12/27/22 22:51 Dose: 150 mg Quetiapine Fumarate (Quetiapine Fumarate 50 Mg Tablet) 50 mg PO TID [place] Last Admin: 12/28/22 14:48 Dose: 50 mg Trazodone HCl (Trazodone Hcl 50 Mg Tablet) 50 mg PO BEDTIME MRX1 PRN PRN Reason: Insomnia Last Admin: 12/27/22 02:11 Dose: 50 mg Allergies Allergies Allergy/AdvReac Type Severity Reaction Status Date / Time Beta-Blockers Allergy Hives Verified 12/21/22 01:52 (Beta-Adrenergic Bloc cephalexin [From Keflex] Allergy Vomiting Verified 12/21/22 01:52 Cephalosporins Allergy Nausea and Verified 12/21/22 01:52 Vomiting erythromycin base Allergy Hives Verified 12/21/22 01:52 Penicillins [PCN] Allergy Nausea and Verified 12/21/22 01:52 Vomiting shellfish derived Allergy Anaphylaxis Verified 12/21/22 00:07 strawberry Allergy Anaphylaxis Verified 12/21/22 00:07 tomato Allergy Anaphylaxis Verified 12/21/22 00:07 verapamil Allergy Hives Verified 12/21/22 01:52 latex AdvReac Swelling Verified 12/21/22 01:52 Assessment & Plan Assessment & Plan (1) Bipolar disorder: Status: Acute Code(s): F31.9 - Bipolar disorder, unspecified (2) Posttraumatic stress disorder: Status: Acute Code(s): F43.10 - Post-traumatic stress disorder, unspecified (3) Personality disorder: Status: Acute Code(s): F60.9 - Personality disorder, unspecified Plan The patient is an adult female with a long history of PTSD, cluster B personality traits and bipolar disorder who was admitted into the facility for exacerbation of depression for the last 2 week with neurovegetative symptoms and suicidal ideation. Recently her outpatient psychiatrist tried to start her on lithium. Plan 1. Gather collateral information. 2. Continue lithium 600 mg p.o. q.h.s.. 3. Continue Seroquel 150 p.o. q.h.s. and 50 p.o. t.i.d. as per med reconciliation. 4. At the low dose of Ativan p.r.n. for severe anxiety. 5. Reassessment with results. 6. [place] level on 2 days AM. TSH, Lith and BMP 12/23: continue prazosin titration to 3 mg tonight. otherwise continue current mgmt. no SI. +SIBI, which is daily at baseline. 12/24: continue prazosin titration to 4 mg tonight. increase hydroxyzine PRNs from 25 mg each to 50 mg each. start prazosin 1 mg at 0900 and 1500 for chronic anxiety. 12/25: increase prazosin from to . otherwise continue current regimen. LM with maciej mcdonald, pt's outpt prescriber, at [phone]. 12/26: increase prazosin from 5 --> . exchanging messages with Dr. Mcdonald. 12/27: spoke with Dr. Mcdonald yesterday, periactin added per her plan. slept poorly again last night, periactin increased to 8 mg tonight and prazosin increased to 8 mg as well. SIBI continues. 12/28: prazosin increased from 28 --> 11/01/09 today. slept well last night but still had nightmares. Reason for continued inpatient stay Substantial Risk for: harm to self, inability to function and rapid decompensation Time Spent With Patient Time: Total time managing care of this patient today ____ minutes.
[2022-12-28 17:29] VITALS: PULSE 102
[2022-12-28 18:00] VITALS: BP 102/70; PULSE 124; RESP 16; TEMP 36.8; O2SAT 99
--- NOTE | 2022-12-28 18:33 | PC.NURSE ---
Ativan 1 mg PO Q6 given 2 hours early, okayed per .
[2022-12-28] MEDS: Prazosin HCL 5 MG CAPSULE 10 MG PO (20:42)
[2022-12-28] MEDS: Lithium Carbonate 300 MG TABLET 600 MG PO (20:42)
[2022-12-28] MEDS: QUEtiapine Fumarate 50 MG TABLET 150 MG PO (20:43)
[2022-12-28] MEDS: Cyproheptadine HCl 4 MG TABLET 8 MG PO (20:44)
[2022-12-28 21:00] VITALS: BP 110/70; PULSE 96; RESP 16
[2022-12-29 06:00] VITALS: BP 123/57; PULSE 122; RESP 16; TEMP 36.2; O2SAT 97
[2022-12-29] MEDS: LORazepam 1 MG TABLET PO ×4 (06:01→22:35)
[2022-12-29] MEDS: Prazosin HCL 1 MG CAPSULE 3 MG PO ×2 (08:58→13:50)
[2022-12-29] MEDS: hydrOXYzine HCL 50 MG TABLET PO ×4 (08:58→20:33)
[2022-12-29] MEDS: QUEtiapine Fumarate 50 MG TABLET PO ×3 (08:59→22:34)
[2022-12-29 13:50] VITALS: BP 120/74
--- NOTE | 2022-12-29 16:50 | P.PNPSI_ITS ---
Subjective Subjective Date of Service: 12/29/22 Reason For Visit: Unspecified Stress and Trauma related disorder Interim History: calm, cooperative. slept sporadically last night. anxious about discharge tomorrow yet still wants to go. agrees to increase prazosin to 12 tonight and periactin to 12. +SIBI, daily, chronic. per staff, 06/10 anx/dep. appeared to have slept well. had ativan for panic. more cheerful in the afternoon. feeling safe. Mental Status Exam Mental Status Exam Narrative: tattoos. adequately dressed and groomed. cooperative. no PMA/PMR. speech nml rate, amount, loudness, tone, latency. thoughts linear and logical. affect constricted, normo-intense, non-labile. mood depressed. +SIBI. no SI//HI/AVH expressed. Diagnostics Vital Signs (24Hr): Vital Signs - 24 hr 12/28/22 17:29 12/28/22 18:00 12/28/22 21:00 Temperature 98.2 F Pulse Rate 102 H 124 H 96 Respiratory Rate 16 16 Blood Pressure 102/70 110/70 Pulse Oximetry 99 Oxygen Delivery Method Room Air 12/29/22 06:00 12/29/22 13:50 Temperature 97.2 F Pulse Rate 122 H Respiratory Rate 16 Blood Pressure 123/57 L 120/74 Pulse Oximetry 97 Oxygen Delivery Method Room Air BMI result Body Mass Index 27.6 Labs 12/25/22 08:40 Medications Medications Current Medications Acetaminophen (Acetaminophen 325 Mg Tablet) 650 mg PO Q6H PRN PRN Reason: Headache/Pain Mild Scale (1-3) Last Admin: 12/26/22 04:35 Dose: 650 mg Al Hydroxide/Mg Hydroxide (Magnesium Hydrox/Alum Hydrox 30 Ml Oral.Susp) 30 ml PO Q6H PRN PRN Reason: Heartburn/Nausea Albuterol Sulfate (Albuterol Sulfate 90 Mcg 8 Gm Inhaler) 2 puff INHALE QID PRN PRN Reason: wheezing Cyproheptadine HCl (Cyproheptadine Hcl 4 Mg Tablet) 12 mg PO BEDTIME [place] Hydroxyzine HCl (Hydroxyzine Hcl 50 Mg Tablet) 50 mg PO Q4H PRN PRN Reason: Anxiety Last Admin: 12/29/22 13:50 Dose: 50 mg [place] Carbonate ([place] Carbonate 300 Mg Tablet) 600 mg PO BEDTIME [facility] Last Admin: 12/28/22 20:42 Dose: 600 mg Lorazepam (Lorazepam 1 Mg Tablet) 1 mg PO BEDTIME [place] Last Admin: 12/28/22 20:45 Dose: 1 mg Lorazepam (Lorazepam 1 Mg Tablet) 1 mg PO Q6H PRN PRN Reason: severe anxiety Last Admin: 12/29/22 13:50 Dose: 1 mg Magnesium Hydroxide (Milk Of Magnesia 30 Ml Oral.Susp) 30 ml PO DAILY PRN PRN Reason: Constipation Prazosin HCl (Prazosin Hcl 1 Mg Capsule) 3 mg PO BID@0900,1500 [place]; Protocol Last Admin: 12/29/22 13:50 Dose: 3 mg Prazosin HCl (Prazosin Hcl 1 Mg Capsule) 12 mg PO BEDTIME [place] Quetiapine Fumarate (Quetiapine Fumarate 50 Mg Tablet) 150 mg PO BEDTIME [place] Last Admin: 12/28/22 20:43 Dose: 150 mg Quetiapine Fumarate (Quetiapine Fumarate 50 Mg Tablet) 50 mg PO TID [facility] Last Admin: 12/29/22 13:50 Dose: 50 mg Trazodone HCl (Trazodone Hcl 50 Mg Tablet) 50 mg PO BEDTIME MRX1 PRN PRN Reason: Insomnia Last Admin: 12/27/22 02:11 Dose: 50 mg Allergies Allergies Allergy/AdvReac Type Severity Reaction Status Date / Time Beta-Blockers Allergy Hives Verified 12/21/22 01:52 (Beta-Adrenergic Bloc cephalexin [From Keflex] Allergy Vomiting Verified 12/21/22 01:52 Cephalosporins Allergy Nausea and Verified 12/21/22 01:52 Vomiting erythromycin base Allergy Hives Verified 12/21/22 01:52 Penicillins [PCN] Allergy Nausea and Verified 12/21/22 01:52 Vomiting shellfish derived Allergy Anaphylaxis Verified 12/21/22 00:07 strawberry Allergy Anaphylaxis Verified 12/21/22 00:07 tomato Allergy Anaphylaxis Verified 12/21/22 00:07 verapamil Allergy Hives Verified 12/21/22 01:52 latex AdvReac Swelling Verified 12/21/22 01:52 Assessment & Plan Assessment & Plan (1) Bipolar disorder: Status: Acute Code(s): F31.9 - Bipolar disorder, unspecified (2) Posttraumatic stress disorder: Status: Acute Code(s): F43.10 - Post-traumatic stress disorder, unspecified (3) Personality disorder: Status: Acute Code(s): F60.9 - Personality disorder, unspecified Plan The patient is an adult female with a long history of PTSD, cluster B personality traits and bipolar disorder who was admitted into the facility for exacerbation of depression for the last 2 week with neurovegetative symptoms and suicidal ideation. Recently her outpatient psychiatrist tried to start her on lithium. Plan 1. Gather collateral information. 2. Continue lithium 600 mg p.o. q.h.s.. 3. Continue Seroquel 150 p.o. q.h.s. and 50 p.o. t.i.d. as per med reconciliation. 4. At the low dose of Ativan p.r.n. for severe anxiety. 5. Reassessment with results. 6. [place] level on 2 days AM. TSH, Lith and BMP 12/23: continue prazosin titration to 3 mg tonight. otherwise continue current mgmt. no SI. +SIBI, which is daily at baseline. 12/24: continue prazosin titration to 4 mg tonight. increase hydroxyzine PRNs from 25 mg each to 50 mg each. start prazosin 1 mg at 0900 and 1500 for chronic anxiety. 12/25: increase prazosin from to 2//5. otherwise continue current regimen. LM with maciej mcdonald, pt's outpt prescriber, at [phone]. 12/26: increase prazosin from 2/2/5 --> 2/2/6. exchanging messages with Dr. Mcdonald. 12/27: spoke with Dr. Mcdonald yesterday, periactin added per her plan. slept poorly again last night, periactin increased to 8 mg tonight and prazosin increased to 8 mg as well. SIBI continues. 12/28: prazosin increased from 2/2/8 --> 3/3/10 today. slept well last night but still had nightmares. 12/29: prazosin increased to 3/3/12 today, periactin increased to 12 today - both for nightmares and insomnia. chronic SIBI continues. planning for discharge tomorrow. Reason for continued inpatient stay Substantial Risk for: harm to self, inability to function and rapid decompensation Time Spent With Patient Time: Total time managing care of this patient today ____ minutes.
[2022-12-29 20:30] VITALS: PULSE 124; RESP 18; TEMP 37.1; O2SAT 98
[2022-12-29] MEDS: Prazosin HCL 1 MG CAPSULE 12 MG PO (22:33)
[2022-12-29] MEDS: QUEtiapine Fumarate 50 MG TABLET 150 MG PO (22:34)
[2022-12-29] MEDS: Cyproheptadine HCl 4 MG TABLET 12 MG PO (22:35)
[2022-12-29] MEDS: Lithium Carbonate 300 MG TABLET 600 MG PO (22:35)
[2022-12-30] MEDS: Prazosin HCL 1 MG CAPSULE 3 MG PO (08:38)
[2022-12-30] MEDS: QUEtiapine Fumarate 50 MG TABLET PO (08:38)
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
--- NOTE | 2022-12-30 11:33 | PC.NURSE ---
Pt reportss readiness for discharge . she admits to thinking about suicide all the time but denies a plan . she also denies HI/AH/VH . Reviewed appointments medications and instructions with Pt she verbalized understanding. She will be picked up and going home with er who is a great support
== END 2022-12-30 11:25 | disposition home or self-care (01) | DRG 753 ==
PROVIDERS: Psychiatry & Neurology Psychiatry; Admitting Provider Psychiatry & Neurology Psychiatry; PCP Internal Medicine; Visit Provider Psychiatry & Neurology Psychiatry
DX: F31.9 Bipolar disorder, unspecified (principal); R45.851 Suicidal ideations; F60.9 Personality disorder, unspecified; F43.12 Post-traumatic stress disorder, chronic; J45.990 Exercise induced bronchospasm; K21.9 Gastro-esophageal reflux disease without esophagitis; K86.1 Other chronic pancreatitis; Z87.891 Personal history of nicotine dependence; Z91.51 Personal history of suicidal behavior; Z88.0 Allergy status to penicillin; Z91.040 Latex allergy status; Z79.899 Other long term (current) drug therapy
CPT/HCPCS: 36415; 80048; 80053; 80061; 80178; 84443

== ENCOUNTER 2024-12-21 12:06 | Inpatient (IN) | payer OTHER, SELFPAY ==
[2024-12-21 12:33] VITALS: BP 153/94; PULSE 109; RESP 18; TEMP 36.6; O2SAT 95; BMI 29.1
--- NOTE | 2024-12-21 12:37 | ED.GENADULT ---
HPI - General Adult General Chief complaint: Psychiatric Symptoms Stated complaint: Crisis Time Seen by Provider: 12/21/24 12:42 History of Present Illness HPI narrative: Patient seen by Dr. Kay Related Data Home Medications ?Medication ?Instructions ?Recorded ?Confirmed clonazepam 1 mg tablet 2 mg PO DAILY PRN anxiety 12/21/24 12/21/24 metoprolol succinate 25 mg 25 mg PO DAILY 12/21/24 12/21/24 tablet,extended release 24 hr Allergies Allergy/AdvReac Type Severity Reaction Status Date / Time Beta-Blockers Allergy Hives Verified 12/21/24 12:34 (Beta-Adrenergic Bloc cephalexin [From Keflex] Allergy Vomiting Verified 12/21/24 12:34 Cephalosporins Allergy Nausea and Verified 12/21/24 12:34 Vomiting erythromycin base Allergy Hives Verified 12/21/24 12:34 peanut Allergy Unknown Verified 12/21/24 14:42 Penicillins [PCN] Allergy Nausea and Verified 12/21/24 12:34 Vomiting shellfish derived Allergy Anaphylaxis Verified 12/21/24 12:34 strawberry Allergy Anaphylaxis Verified 12/21/24 12:34 tomato Allergy Anaphylaxis Verified 12/21/24 12:34 verapamil Allergy Hives Verified 12/21/24 12:34 latex AdvReac Swelling Verified 12/21/24 12:34 PMFSH Past Medical History Medical History Bipolar disorder Routine history and physical examination of adult Social History Social History Household Members: Spouse Housing: Apartment Do you presently have visiting nurse or other home services: No Comment: steady gait Patient Tobacco Use Status: Former Tobacco user Tobacco use type: Cigarette Smoked in Last 30 Days: No e-Cigarette/Vaping Use: Former Use Patient Interested in Nicotine Replacement: No Second Hand Smoke Exposure: No Use of substances other than those prescribed or required for medical reasons: No Substance Use Type: Caffiene Currently Displaying Signs/Symptoms of Drug Intoxication Withdrawal: No Any prior treatment program specific to substance use: No Have you been hit, kicked, punched, or otherwise hurt by someone within the past year? If so, by whom?: No Do you feel safe in your current relationship?: Yes Is there a partner from a previous relationship who is making you feel unsafe now?: No Are you made to feel afraid or neglected: No Sikhism Healthcare Practices: none Advance Directives: No Advance Directives Information Provided: Yes Do you have a plan to hurt others: No Plan Recently lost weight without trying: No Eating poorly because of decreased appetite: No Nutrition Risks: No Nutritional Risk Patient : No : No Poor oral hygiene: No service: No Sexual orientation: Straight/Heterosexual Physical Exam ED Vital Signs: Vital Signs - 24 hr 12/21/24 17:18 12/22/24 06:24 12/22/24 10:02 Temperature 97.3 F 99.1 F 98.1 F Pulse Rate 89 73 94 Respiratory Rate 16 16 16 Blood Pressure 107/73 100/62 102/66 Pulse Oximetry 96 98 97 Oxygen Delivery Method Room Air Room Air Room Air BMI result Body Mass Index 29.1 Course Course Course Narrative: RME: 44 yold female with pmh of depression resistant to meds and PTSD presents to the ED for depression and SI with plan. patient is tearful and wants help. Her therapists are on vacation. labs, Care team consult placed Medications Administered Generic Name Dose Route Start Last Admin Trade Name Freq PRN Reason Stop Dose Admin Clonazepam 2 mg 12/21/24 19:57 12/22/24 10:44 Clonazepam 1 Mg Tablet PO 2 mg DAILY PRN Administration anxiety Metoprolol Succinate 25 mg 12/22/24 09:00 12/22/24 08:54 Metoprolol Succinate Er 25 Mg Tab.Er.24h PO 25 mg DAILY ELTON Administration Protocol Discontinued Medications Generic Name Dose Route Start Last Admin Trade Name Freq PRN Reason Stop Dose Admin Acetaminophen 975 mg 12/21/24 12:36 12/21/24 13:20 Acetaminophen 325 Mg Tablet PO 12/21/24 12:37 975 mg ONCE ONE Administration Ibuprofen 800 mg 12/22/24 03:31 12/22/24 03:34 Ibuprofen 800 Mg Tablet PO 12/22/24 03:32 800 mg ONCE ONE Administration Lorazepam 2 mg 12/21/24 16:45 12/21/24 16:48 Lorazepam 1 Mg Tablet PO 12/21/24 16:46 2 mg ONCE ONE Administration Lorazepam 2 mg 12/21/24 18:07 12/21/24 18:26 Lorazepam 1 Mg Tablet PO 12/21/24 18:08 2 mg ONCE ONE Administration Lorazepam 2 mg 12/22/24 08:57 12/22/24 09:11 Lorazepam 1 Mg Tablet PO 12/22/24 08:58 2 mg ONCE ONE Administration Medical Decision Making Lab Data 12/21/24 13:12 12/21/24 13:12 Labs: Lab Results 12/21/24 Range/Units 13:12 WBC 8.4 (4.8-10.8) X10*3/uL RBC 4.73 (4.20-5.50) X10*6/uL Hgb 14.8 (12.0-16.0) g/dl Hct 42.6 (37.0-47.0) % MCV 90.1 (80.0-98.0) fL MCH 31.3 (27.0-33.0) pg MCHC 34.7 (31.0-35.0) g/dl RDW 11.7 (11.0-16.0) % Plt Count 221 (160-400) X10*3/uL MPV 10.9 (9.4-12.3) fL Immature Gran % (Auto) 0.2 (0.0-0.4) % Neut % (Auto) 68.2 (45-73) % Lymph % (Auto) 21.7 (20-40) % [place] % (Auto) 8.4 (2-11) % Eos % (Auto) 1.1 (0-4) % Baso % (Auto) 0.4 (0-2) % Lymph # (Auto) 1.8 (1.2-4.9) X10*3/uL [place] # (Auto) 0.7 (0.1-1.2) X10*3/uL Eos # (Auto) 0.1 (0.0-0.4) X10*3/uL Baso # (Auto) 0.0 (0.0-0.2) X10*3/uL Abs Immat Gran (auto) 0.02 (0.00-0.03) X10*3/uL Absolute Neuts (auto) 5.7 (2.0-8.3) x10*3/uL Absolute Nucleated RBC 0.000 (0.0-0.012) X10*3/uL Nucleated RBC % (auto) 0.0 (0.0-0.2) /100WBC Sodium 141 (135-145) mmol/L Potassium 4.2 (3.3-5.1) mmol/L Chloride 108 (96-108) mmol/L Carbon Dioxide 25 (22-29) mmol/L Anion Gap 12 (12-20) BUN 7 L (9-16) mg/dL Creatinine 0.73 (0.5-1.4) mg/dL Estim Creat Clear Calc 101.2 Estimated GFR > 60 Random Glucose 102 (60-115) mg/dL Calcium 9.1 D (8.4-10.2) mg/dL Total Bilirubin 0.3 (0.0-1.0) mg/dL AST 18 (5-31) U/L ALT 23 (0-31) U/L Alkaline Phosphatase 76 (39-117) U/L Total Protein 7.3 (6.5-8.0) g/dL Albumin 4.3 (3.5-5.0) g/dL Urine Color Yellow Urine Appearance Clear Urine pH 6.5 (5.0-9.0) Ur Specific [place] <= 1.005 (1.005-1.025) Urine Protein Negative (Neg-Trace) mg/dL Urine Glucose (UA) Negative (Negative) mg/dL Urine Ketones Negative (Negative) mg/dL Urine Blood Negative (Negative) Urine Nitrite Negative (Negative) Ur Leukocyte Esterase Negative (Negative) Urine Test NEGATIVE (NEGATIVE) Salicylates < 5.0 L (15-30) mg/dL Urine Opiates Screen Not Detected (Not Detect) Ur Buprenorphine Scrn Not Detected (Not Detect) ng/mL Ur Oxycodone Screen Not Detected (Not Detect) ng/mL Urine Methadone Screen Not Detected (Not Detect) ng/mL Urine Fentanyl Screen Not Detected (Not Detect) Ur Barbiturates Screen Not Detected (Not Detect) Ur Phencyclidine Scrn Not Detected (Not Detect) Ur Amphetamines Screen Not Detected (Not Detect) U Benzodiazepines Scrn Not Detected (Not Detect) Urine Cocaine Screen Not Detected (Not Detect) U Marijuana (THC) Screen Not Detected (Not Detect) Ethyl Alcohol < 10 mg/dL Discharge Plan Discharge Clinical Impression: Depression, Suicidal ideation Patient Disposition: Admitted As Inpatient Interventions: [place]-Suicide Risk Severity Scale Last Done: 12/22/24 12:48 Admission Worksheet (ED) Last Done: 12/22/24 12:47 Discharge Date/Time: 12/22/24 12:49
--- NOTE | 2024-12-21 12:55 | ED.PSYCH ---
HPI - Psych General Chief Complaint: Psychiatric Symptoms Stated Complaint: Crisis Time Seen by Provider: 12/21/24 12:42 Source: patient Mode of arrival: ambulatory Limitations: no limitations History of Present Illness ED Provider: Dr. Marian Kay HPI Narrative: Patient comes to the emergency room complaining of suicidal thoughts. Patient states that she has tried so many medications that are not working for her depression. Patient states it has been a year since she had any meds. Patient states that earlier today she took a shower because she went to be cleaned before she killed herself. Patient states that she spoke to her on both agree that she would be safer in the hospital. Patient denies HI. According to the patient she has been seeing a psychiatrist and a therapist for the last 2 months Related Data Home Medications ?Medication ?Instructions ?Recorded ?Confirmed albuterol sulfate 90 mcg/actuation 2 puff inhalation QID PRN wheezing 12/21/22 12/21/22 aerosol inhaler (Ventolin HFA) Previous Rx's ?Medication ?Instructions ?Recorded cyproheptadine 4 mg tablet 12 mg (3 x 4 mg) PO BEDTIME 30 12/30/22 days #90 tabs hydroxyzine HCl 50 mg tablet 50 mg PO TID PRN Anxiety 30 days 12/30/22 #90 tabs lithium carbonate 300 mg tablet 600 mg (2 x 300 mg) PO BEDTIME 30 12/30/22 days #60 tabs lorazepam 1 mg tablet 1 mg PO BEDTIME 30 days #30 tabs 12/30/22 lorazepam 1 mg tablet 1 mg PO TID PRN severe anxiety 30 12/30/22 days #90 tabs prazosin 1 mg capsule 3 mg PO BID@0900,1500 30 days #180 12/30/22 caps prazosin 1 mg capsule 12 mg (12 x 1 mg) PO BEDTIME 30 12/30/22 days #360 caps quetiapine 100 mg tablet 150 mg (1.5 x 100 mg) PO BEDTIME 12/30/22 30 days #45 tabs quetiapine 50 mg tablet 50 mg PO TID 30 days #90 tabs 12/30/22 Allergies Allergy/AdvReac Type Severity Reaction Status Date / Time Beta-Blockers Allergy Hives Verified 12/21/24 12:34 (Beta-Adrenergic Bloc cephalexin [From Keflex] Allergy Vomiting Verified 12/21/24 12:34 Cephalosporins Allergy Nausea and Verified 12/21/24 12:34 Vomiting erythromycin base Allergy Hives Verified 12/21/24 12:34 Penicillins [PCN] Allergy Nausea and Verified 12/21/24 12:34 Vomiting shellfish derived Allergy Anaphylaxis Verified 12/21/24 12:34 strawberry Allergy Anaphylaxis Verified 12/21/24 12:34 tomato Allergy Anaphylaxis Verified 12/21/24 12:34 verapamil Allergy Hives Verified 12/21/24 12:34 latex AdvReac Swelling Verified 12/21/24 12:34 Review of Systems Review of Systems: Constitutional : No Weight loss, No Fever, No Chills, No Night Sweats, No Fatigue, No Malaise ENT/Mouth : No Hearing loss, No Ear Pain, No Nasal Congestion, No Sinus Pain, No Hoarseness, No sore throat, No Rhinorrhea, No Swallowing Difficulty Eyes: No Eye Pain, No Swelling, No Redness, No Foreign Body, No Discharge, No Vision Changes Cardiovascular : No Chest Pain, No SOB, No Dyspnea on Exertion, No Orthopnea, No Edema, No Palpitations Respiratory : No Cough, No Sputum, No Wheezing, No Smoke Exposure, No Dyspnea Gastrointestinal : No Nausea, No Vomiting, No Diarrhea, No Constipation, No abdominal Pain, No Hematochezia, No Melena Genitourinary : no irregular bleeding, No Dysuria, No Urinary Frequency, No Hematuria, No Urinary Incontinence, No Urgency, No Flank Pain, No Urinary Flow Changes, No Hesitancy Musculoskeletal : No joint pain, No Myalgias, No Joint Swelling Skin : No Skin Lesions, No rash Neuro : No Weakness, No Numbness, No Paresthesias, No Loss of Consciousness, No Dizziness, No Headache Psych : Complaining of anxiety and depression, SI, no HI Heme/Lymph: No Bruising, No Bleeding,No Lymphadenopathy Endocrine : No Polyuria, No Polydipsia, No Temperature Intolerance PMFSH Past Medical History Medical History Bipolar disorder Routine history and physical examination of adult Social History Social History Household Members: Spouse Housing: Apartment Do you presently have visiting nurse or other home services: No Comment: steady gait Patient Tobacco Use Status: Former Tobacco user Tobacco use type: Cigarette e-Cigarette/Vaping Use: Former Use Second Hand Smoke Exposure: No Substance Use Type: Caffiene service: No Sexual orientation: Straight/Heterosexual Physical Exam Vital Signs: Vital Signs: Last Vital Signs Temp 98 F 12/21/24 12:33 Pulse 109 H 12/21/24 12:33 Resp 18 12/21/24 12:33 BP 153/94 H 12/21/24 12:33 Pulse Ox 95 12/21/24 12:33 O2 Del Method Room Air 12/21/24 12:33 BMI result Body Mass Index 29.1 Const: Other: Appearance: Alert. Oriented X3. No acute distress. Eyes: Pupils equal, round and reactive to light. ENT: Pharynx normal. Neck: Normal inspection. Neck supple. No lymph nodes noted. No crepitus CVS: Normal heart rate and rhythm. Pulses normal. Normal S1 and S2 Respiratory: No respiratory distress. Breath sounds normal. No Wheezing. No rales Abdomen: Soft and nontender. No rigidity. No distention. Skin: Skin warm and dry. Normal skin color. Normal skin turgor. Multiple excoriations in the face secondary to picking skin Extremities: No lower extremity edema. No Lacerations. No Rash Neuro: Oriented X 3. No motor deficit. No sensory deficit. Moving all extremities. No slurred speech. CN 2 through 12 grossly intact Psych: calm, cooperative, tearful Course Course Course Narrative: All of patient's labs pending Care team consult pending Patient is on a Section 12 Physician observation started at 13:00 Medical Decision Making Differential Diagnosis Differential Diagnoses: The differential diagnosis associated with the presentation includes (Anxiety, depression, bipolar disorder) Admission/Observation Consideration of admission/observation: Escalation of care including admission/observation considered (Patient is on a Section 12 waiting to be seen by the care team. Patient will likely need inpatient level of care) Discharge Plan Discharge Clinical Impression: Depression, Suicidal ideation Prescriptions: No Action albuterol sulfate [Ventolin HFA] 90 mcg/actuation HFA aerosol inhaler 2 puff inhalation QID PRN (Reason: wheezing) prazosin 1 mg Capsule 12 mg PO BEDTIME 30 Days Qty: 360 0RF prazosin 1 mg Capsule 3 mg PO BID@0900,1500 30 Days Qty: 180 0RF Protocol: Hold for SBP< HOLD for SBP < : 90 hydroxyzine HCl 50 mg Tablet 50 mg PO TID PRN (Reason: Anxiety) 30 Days Qty: 90 0RF cyproheptadine 4 mg Tablet 12 mg PO BEDTIME 30 Days Qty: 90 0RF lithium carbonate 300 mg Tablet 600 mg PO BEDTIME 30 Days Qty: 60 0RF lorazepam 1 mg Tablet 1 mg PO BEDTIME 30 Days Qty: 30 0RF lorazepam 1 mg Tablet 1 mg PO TID PRN (Reason: severe anxiety) 30 Days Qty: 90 0RF quetiapine 100 mg tablet 150 mg PO BEDTIME 30 Days Qty: 45 0RF quetiapine 50 mg tablet 50 mg PO TID 30 Days Qty: 90 0RF Print Language: Ukrainian
[2024-12-21] MEDS: Acetaminophen 325 MG TABLET 975 MG PO (13:20)
[2024-12-21 13:23] LABS: MANUAL DIFF FLAG NO
[2024-12-21 13:25] LABS: Basophils Percent Auto 0.4 % (0-2); Eosinophils Absolute Auto 0.1 X10*3/uL (0.0-0.4); Eosinophils Percent Auto 1.1 % (0-4); Hematocrit 42.6 % (37.0-47.0); Hemoglobin 14.8 g/dl (12.0-16.0); Imm Gran Abs Auto 0.02 X10*3/uL (0.00-0.03); Imm Gran Pct Auto 0.2 % (0.0-0.4); Lymphocytes Absolute Auto 1.8 X10*3/uL (1.2-4.9); Lymphocytes Percent Auto 21.7 % (20-40); Mean Corpuscular HGB Conc 34.7 g/dl (31.0-35.0); Mean Corpuscular Hemoglobin 31.3 pg (27.0-33.0); Mean Corpuscular Volume 90.1 fL (80.0-98.0); Mean Platelet Volume 10.9 fL (9.4-12.3); Monocytes Absolute Auto 0.7 X10*3/uL (0.1-1.2); Monocytes Percent Auto 8.4 % (2-11); Neutrophils Absolute Auto 5.7 x10*3/uL (2.0-8.3); Neutrophils Percent Auto 68.2 % (45-73); Platelet Count 221 X10*3/uL (160-400); Red Blood Count 4.73 X10*6/uL (4.20-5.50); Red Cell Distribution Width 11.7 % (11.0-16.0); White Blood Count 8.4 X10*3/uL (4.8-10.8)
[2024-12-21 13:27] LABS: UPreg QC Valid YES; Urine Pregnancy NEGATIVE (NEGATIVE)
[2024-12-21 13:37] LABS: Amphetamine Screen Urine Not Detected (Not Detect); Barbiturates, Urine Not Detected (Not Detect); Benzodiazepines Screen Urine Not Detected (Not Detect); Buprenorphine Scr Not Detected (Not Detect); Cannabinoid Screen Urine Not Detected (Not Detect); Cocaine Screen Urine Not Detected (Not Detect); Fentanyl, urine Not Detected (Not Detect); Methadone Screen, Urine Not Detected (Not Detect); Opiate Screen Urine Not Detected (Not Detect); Oxycodone Screen Urine Not Detected (Not Detect); Phencyclidine Screen Urine Not Detected (Not Detect)
--- NOTE | 2024-12-21 13:37 | PC.NURSE ---
assumed care of patient in bpod, patient changed over in main ED. patient is calm and cooperative, states she has a headache, medicated per MAR with tylenol. patient given a lunch tray. sect 12 on file.
[2024-12-21 13:51] LABS: Alanine Aminotransferase 23 U/L (0-31); Albumin Level 4.3 g/dL (3.5-5.0); Alkaline Phosphatase 76 U/L (39-117); Anion Gap 12 (12-20); Aspartate Amino Transferase 18 U/L (5-31); Bilirubin Total 0.3 mg/dL (0.0-1.0); Blood Urea Nitrogen 7 mg/dL (9-16); Calcium 9.1 mg/dL (8.4-10.2); Carbon Dioxide 25 mmol/L (22-29); Chloride 108 mmol/L (96-108); Creatinine Clr Calc Pharmacy 101.2; Estimated Glomerular Filt Rate > 60; Ethanol < 10 mg/dL; Glucose Random 102 mg/dL (60-115); Potassium 4.2 mmol/L (3.3-5.1); Salicylate < 5.0 mg/dL (15-30); Sodium 141 mmol/L (135-145); Total Protein 7.3 g/dL (6.5-8.0)
--- NOTE | 2024-12-21 15:54 | MHC.CARE ---
Patient will be adult IPLOC. Section 12a placed in chart for safety.
[2024-12-21] MEDS: LORazepam 1 MG TABLET 2 MG PO ×2 (16:48→18:26)
--- NOTE | 2024-12-21 17:00 | PC.NURSE ---
patient notified this RN of small open area she has under right breast, patient states she was itching when she became anxious over the past week, area is now raw and more itchy. patient given barrier cream, ED proovider made aware. patient given strict instructions to notify staff if getting worse.
[2024-12-21 17:18] VITALS: BP 107/73; PULSE 89; RESP 16; TEMP 36.3; O2SAT 96
[2024-12-21] MEDS: clonazePAM 1 MG TABLET 2 MG PO (20:16)
--- NOTE | 2024-12-22 | ECG_ITS ---
Test Reason : check qt Blood Pressure : */* mmHG Vent. Rate : 74 BPM Atrial Rate : 74 BPM P-R Int : 146 ms QRS Dur : 72 ms QT Int : 368 ms P-R-T Axes : -13 63 44 degrees QTcB Int : 408 ms Normal sinus rhythm Normal ECG No previous ECGs available Referred By: Lincoln White Electronically Signed By: MELISSA ESCOBAR
[2024-12-22] MEDS: Ibuprofen 800 MG TABLET PO (03:34)
[2024-12-22 06:24] VITALS: BP 100/62; PULSE 73; RESP 16; TEMP 37.3; O2SAT 98
--- NOTE | 2024-12-22 07:14 | PC.NURSE ---
Assumed care of pt at 0645. Pt is currently on the phone after eating breakfast. No acute behavioral/medical concerns at this time. Continue plan of care for inpatient bed search.
[2024-12-22 07:57] LABS: Appearance Urine Clear; Color Urine Yellow; Glucose Urine UA Negative (Negative); Leukocyte Esterase Urine Negative (Negative); Nitrite Urine Negative (Negative); PH 6.5 (5.0-9.0); Specific Gravity - Urine <= 1.005 (1.005-1.025); Urine Blood Negative (Negative); Urine Ketones Negative (Negative); Urine Protein Negative (Neg-Trace)
--- NOTE | 2024-12-22 08:40 | PC.NURSE ---
Patient refusing EKG
[2024-12-22] MEDS: Metoprolol Succinate ER 25 MG TAB.ER.24H PO (08:54)
[2024-12-22] MEDS: LORazepam 1 MG TABLET 2 MG PO (09:11)
[2024-12-22 10:02] VITALS: BP 102/66; PULSE 94; RESP 16; TEMP 36.7; O2SAT 97
[2024-12-22] MEDS: clonazePAM 1 MG TABLET 2 MG PO (10:44)
--- NOTE | 2024-12-22 12:42 | PHA.MEDREC ---
Pharmacy Consult ? Medication Reconciliation Pharmacy has reviewed the medication reconciliation done by nursing staff.
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
[2024-12-22 13:53] VITALS: BP 111/69; PULSE 88; RESP 17; TEMP 36.6; O2SAT 97
[2024-12-22 13:54] VITALS: BMI 29.0
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
[2024-12-22] MEDS: Ibuprofen 600 MG TABLET PO (17:40)
[2024-12-22] MEDS: Acetaminophen 325 MG TABLET 650 MG PO (18:55)
[2024-12-22 20:00] VITALS: BP 136/59; PULSE 87; RESP 16; TEMP 37.2; O2SAT 97
[2024-12-22] MEDS: hydrOXYzine HCL 25 MG TABLET PO (20:02)
[2024-12-22] MEDS: Divalproex Sodium ER 500 MG TAB.ER.24H PO (20:02)
[2024-12-22] MEDS: OLANZapine 5 MG TABLET PO (20:03)
[2024-12-22] MEDS: traZODone HCL 50 MG TABLET PO (20:03)
[2024-12-23 07:00] VITALS: BMI 29.1
[2024-12-23 07:35] VITALS: BP 98/57; PULSE 85; RESP 14; TEMP 36.7; O2SAT 94
[2024-12-23 08:12] LABS: Estimated Average Glucose 105 mg/dL; Hemoglobin A1c % 5.3 % (<6.0); Total Hemoglobin (HGBA1C) 3770.9594 umol/L
[2024-12-23] MEDS: Metoprolol Succinate ER 25 MG TAB.ER.24H PO (08:19)
[2024-12-23] MEDS: OLANZapine 5 MG TABLET PO ×2 (08:24→22:09)
[2024-12-23] MEDS: hydrOXYzine HCL 25 MG TABLET PO ×3 (08:24→22:09)
[2024-12-23 08:28] LABS: Alanine Aminotransferase 28 U/L (0-31); Albumin Level 4.1 g/dL (3.5-5.0); Alkaline Phosphatase 71 U/L (39-117); Anion Gap 12 (12-20); Aspartate Amino Transferase 34 U/L (5-31); Bilirubin Total 0.4 mg/dL (0.0-1.0); Blood Urea Nitrogen 13 mg/dL (9-16); Calcium 9.6 mg/dL (8.4-10.2); Carbon Dioxide 27 mmol/L (22-29); Chloride 107 mmol/L (96-108); Creatinine Clr Calc Pharmacy 102.5; Estimated Glomerular Filt Rate > 60; Glucose Random 98 mg/dL (60-115); Potassium 4.6 mmol/L (3.3-5.1); Sodium 141 mmol/L (135-145); Total Protein 7.1 g/dL (6.5-8.0)
[2024-12-23 08:35] LABS: Cholesterol 173 mg/dL (<200); HDL Cholesterol 41 mg/dL (>40); LDL Cholesterol Calculated 114 mg/dL (<100); Triglycerides 90 mg/dL (<150)
--- NOTE | 2024-12-23 11:30 | P.PNPSI_ITS ---
Subjective Subjective Date of Service: 12/23/24 Reason For Visit: Decompensation Subjective Notes: Conditional Voluntary Interim History: Active on unit, social with peers. attending groups. Patient continues to report feeling depressed but states she is trying to remain hopeful. Patient stated, I'm hoping that the Depakote will help with my mood. I slept great last night . She reports always feeling suicidal but the idea of doing it to my kids, stops me . denies HI/VH/AH. denies side effects from starting depakote. Medication Compliance: Yes Side effects from medications: No Attending Groups: Yes Mental Status Exam Mental Status Exam Narrative: Pt is alert and oriented; behavior is cooperative and calm; dressed in casual attire; mood is described as depressed ; eye contact appropriate; Speech is normal rate, volume and not pressured; thought process is organized and goal directed; Thought content is on tx; denies HI/VH/AH. Patient reports chronic suicidal ideation; denies intent at this time. Diagnostics Vital Signs (24Hr): Vital Signs - 24 hr 12/22/24 13:53 12/22/24 20:00 12/23/24 07:35 Temperature 98 F 98.9 F 98.0 F Pulse Rate 88 87 85 Respiratory Rate 17 16 14 Blood Pressure 111/69 136/59 L 98/57 L Pulse Oximetry 97 97 94 Oxygen Delivery Method Room Air Room Air Room Air BMI result Body Mass Index 29.0 Labs 12/21/24 13:12 12/23/24 07:48 Labs: Laboratory Results - last 48 hr 12/21/24 12/23/24 13:12 07:48 WBC 8.4 RBC 4.73 Hgb 14.8 Hct 42.6 MCV 90.1 MCH 31.3 MCHC 34.7 RDW 11.7 Plt Count 221 MPV 10.9 Immature Gran % (Auto) 0.2 Neut % (Auto) 68.2 Lymph % (Auto) 21.7 [place] % (Auto) 8.4 Eos % (Auto) 1.1 Baso % (Auto) 0.4 Lymph # (Auto) 1.8 [place] # (Auto) 0.7 Eos # (Auto) 0.1 Baso # (Auto) 0.0 Abs Immat Gran (auto) 0.02 Absolute Neuts (auto) 5.7 Absolute Nucleated RBC 0.000 Nucleated RBC % (auto) 0.0 Sodium 141 141 Potassium 4.2 4.6 Chloride 108 107 Carbon Dioxide 25 27 Anion Gap 12 12 BUN 7 L 13 Creatinine 0.73 0.72 Estim Creat Clear Calc 101.2 102.5 Estimated GFR > 60 > 60 Random Glucose 102 98 Estimat Average Glucose 105 Hemoglobin A1c % 5.3 Calcium 9.1 D 9.6 Total Bilirubin 0.3 0.4 AST 18 34 H ALT 23 28 Alkaline Phosphatase 76 71 Total Protein 7.3 7.1 Albumin 4.3 4.1 Triglycerides 90 Cholesterol 173 LDL Cholesterol, Calc 114 H HDL Cholesterol 41 TSH 1.80 Urine Color Yellow Urine Appearance Clear Urine pH 6.5 Ur Specific [place] <= 1.005 Urine Protein Negative Urine Glucose (UA) Negative Urine Ketones Negative Urine Blood Negative Urine Nitrite Negative Ur Leukocyte Esterase Negative Urine Test NEGATIVE Salicylates < 5.0 L Urine Opiates Screen Not Detected Ur Buprenorphine Scrn Not Detected Ur Oxycodone Screen Not Detected Urine Methadone Screen Not Detected Urine Fentanyl Screen Not Detected Ur Barbiturates Screen Not Detected Ur Phencyclidine Scrn Not Detected Ur Amphetamines Screen Not Detected U Benzodiazepines Scrn Not Detected Urine Cocaine Screen Not Detected U Marijuana (THC) Screen Not Detected Ethyl Alcohol < 10 Medications Medications Current Medications Acetaminophen (Acetaminophen 325 Mg Tablet) 650 mg PO Q6H PRN PRN Reason: Headache/Pain, Scale 1-10 Last Admin: 12/22/24 18:55 Dose: 650 mg Al Hydroxide/Mg Hydroxide (Magnesium Hydrox/Alum Hydrox 30 Ml Oral.Susp) 30 ml PO Q6H PRN PRN Reason: Heartburn/Nausea Clonazepam (Clonazepam 1 Mg Tablet) 2 mg PO DAILY PRN PRN Reason: anxiety Last Admin: 12/22/24 10:44 Dose: 2 mg Divalproex Sodium (Divalproex Sodium Er 500 Mg Tab.Er.24h) 500 mg PO BEDTIME ELTON Last Admin: 12/22/24 20:02 Dose: 500 mg Hydroxyzine HCl (Hydroxyzine Hcl 25 Mg Tablet) 25 mg PO Q6H PRN PRN Reason: mild anxiety Last Admin: 12/23/24 08:24 Dose: 25 mg Ibuprofen (Ibuprofen 600 Mg Tablet) 600 mg PO Q6H PRN PRN Reason: Pain, Moderate(Pain Scale 4-6) Last Admin: 12/22/24 17:40 Dose: 600 mg Magnesium Hydroxide (Milk Of Magnesia 30 Ml Oral.Susp) 30 ml PO DAILY PRN PRN Reason: Constipation Metoprolol Succinate (Metoprolol Succinate Er 25 Mg Tab.Er.24h) 25 mg PO DAILY [place]; Protocol Last Admin: 12/23/24 08:19 Dose: 25 mg Olanzapine (Olanzapine 5 Mg Tablet) 5 mg PO TID PRN PRN Reason: agitation Last Admin: 12/23/24 08:24 Dose: 5 mg Trazodone HCl (Trazodone Hcl 50 Mg Tablet) 50 mg PO BEDTIME MRX1 PRN PRN Reason: Insomnia Last Admin: 12/22/24 20:03 Dose: 50 mg Allergies Allergies Allergy/AdvReac Type Severity Reaction Status Date / Time Beta-Blockers Allergy Hives Verified 12/21/24 12:34 (Beta-Adrenergic Bloc cephalexin [From Keflex] Allergy Vomiting Verified 12/21/24 12:34 Cephalosporins Allergy Nausea and Verified 12/21/24 12:34 Vomiting erythromycin base Allergy Hives Verified 12/21/24 12:34 peanut Allergy Unknown Verified 12/21/24 14:42 Penicillins [PCN] Allergy Nausea and Verified 12/21/24 12:34 Vomiting shellfish derived Allergy Anaphylaxis Verified 12/21/24 12:34 strawberry Allergy Anaphylaxis Verified 12/21/24 12:34 tomato Allergy Anaphylaxis Verified 12/21/24 12:34 verapamil Allergy Hives Verified 12/21/24 12:34 latex AdvReac Swelling Verified 12/21/24 12:34 Assessment & Plan Assessment & Plan (1) Bipolar disorder: Status: Acute Code(s): F31.9 - Bipolar disorder, unspecified (2) Posttraumatic stress disorder: Status: Acute Code(s): F43.10 - Post-traumatic stress disorder, unspecified Plan Patient is a 44-year-old female with history of bipolar disorder, and PTSD who self presented to ER due to suicidal ideation secondary to increased depression. Plan: CV 15 minute safety checks Continue home medications Obtain collateral Start: Depakote ER 500mg PO bedtime Encourage groups Discharge planning 12/23: Active on unit, social with peers. attending groups. Patient continues to report feeling depressed but states she is trying to remain hopeful. Patient stated, I'm hoping that the Depakote will help with my mood. I slept great last night . She reports always feeling suicidal but the idea of doing it to my kids, stops me . denies HI/VH/AH. denies side effects from starting depakote. continue current tx plan Patient educated on: diagnosis, medication risk/benefits and therapeutic strategies Reason for continued inpatient stay Substantial Risk for: med/psych decompensation Time Spent With Patient Time: Total time managing care of this patient today _20___ minutes.
[2024-12-23] MEDS: NaPROXEN 500 MG TABLET PO (15:01)
[2024-12-23] MEDS: clonazePAM 1 MG TABLET 2 MG PO (15:48)
[2024-12-23 20:00] VITALS: BP 102/69; PULSE 92; RESP 16; TEMP 36.6; O2SAT 99
[2024-12-23] MEDS: Divalproex Sodium ER 500 MG TAB.ER.24H PO (22:09)
[2024-12-23] MEDS: traZODone HCL 50 MG TABLET PO (22:09)
[2024-12-24] MEDS: hydrOXYzine HCL 25 MG TABLET PO ×2 (04:23→21:40)
[2024-12-24] MEDS: NaPROXEN 500 MG TABLET PO (04:24)
[2024-12-24 07:51] VITALS: BP 110/71; PULSE 82; RESP 16; TEMP 36.4; O2SAT 100
[2024-12-24] MEDS: Metoprolol Succinate ER 25 MG TAB.ER.24H PO (08:57)
--- NOTE | 2024-12-24 08:57 | P.PNPSI_ITS ---
Subjective Subjective Date of Service: 12/24/24 Reason For Visit: Decompensation Subjective Notes: Conditional Voluntary Interim History: Patient continues to report feeling depressed; reports the acuity of the unit is bothersome. attending groups. denies HI/VH/AH. passive suicidal ideation. Valproic acid level to be drawn tomorrow morning; adjust dose according to level. Medication Compliance: Yes Side effects from medications: No Attending Groups: Yes Mental Status Exam Mental Status Exam Narrative: Pt is alert and oriented; behavior is cooperative and calm; dressed in casual attire; mood is described as depressed ; eye contact appropriate; Speech is normal rate, volume and not pressured; thought process is organized and goal directed; Thought content is on tx; denies HI/VH/AH. Patient reports chronic suicidal ideation; denies intent at this time. Diagnostics Vital Signs (24Hr): Vital Signs - 24 hr 12/23/24 20:00 12/24/24 07:51 Temperature 98 F 97.6 F Pulse Rate 92 82 Respiratory Rate 16 16 Blood Pressure 102/69 110/71 Pulse Oximetry 99 100 Oxygen Delivery Method Room Air Room Air BMI result Body Mass Index 29.1 Labs 12/21/24 13:12 12/23/24 07:48 Labs: Laboratory Results - last 48 hr 12/23/24 07:48 Sodium 141 Potassium 4.6 Chloride 107 Carbon Dioxide 27 Anion Gap 12 BUN 13 Creatinine 0.72 Estim Creat Clear Calc 102.5 Estimated GFR > 60 Random Glucose 98 Estimat Average Glucose 105 Hemoglobin A1c % 5.3 Calcium 9.6 Total Bilirubin 0.4 AST 34 H ALT 28 Alkaline Phosphatase 71 Total Protein 7.1 Albumin 4.1 Triglycerides 90 Cholesterol 173 LDL Cholesterol, Calc 114 H HDL Cholesterol 41 TSH 1.80 Medications Medications Current Medications Acetaminophen (Acetaminophen 325 Mg Tablet) 650 mg PO Q6H PRN PRN Reason: Headache/Pain, Scale 1-10 Last Admin: 12/22/24 18:55 Dose: 650 mg Al Hydroxide/Mg Hydroxide (Magnesium Hydrox/Alum Hydrox 30 Ml Oral.Susp) 30 ml PO Q6H PRN PRN Reason: Heartburn/Nausea Clonazepam (Clonazepam 1 Mg Tablet) 2 mg PO DAILY PRN PRN Reason: anxiety Last Admin: 12/23/24 15:48 Dose: 2 mg Divalproex Sodium (Divalproex Sodium Er 500 Mg Tab.Er.24h) 500 mg PO BEDTIME [place] Last Admin: 12/23/24 22:09 Dose: 500 mg Hydroxyzine HCl (Hydroxyzine Hcl 25 Mg Tablet) 25 mg PO Q6H PRN PRN Reason: mild anxiety Last Admin: 12/24/24 04:23 Dose: 25 mg Ibuprofen (Ibuprofen 600 Mg Tablet) 600 mg PO Q6H PRN PRN Reason: Pain, Moderate(Pain Scale 4-6) Last Admin: 12/22/24 17:40 Dose: 600 mg Magnesium Hydroxide (Milk Of Magnesia 30 Ml Oral.Susp) 30 ml PO DAILY PRN PRN Reason: Constipation Metoprolol Succinate (Metoprolol Succinate Er 25 Mg Tab.Er.24h) 25 mg PO DAILY [facility]; Protocol Last Admin: 12/23/24 08:19 Dose: 25 mg Naproxen (Naproxen 500 Mg Tablet) 500 mg PO Q12H PRN PRN Reason: Pain, Severe (Pain Scale 7-10) Last Admin: 12/24/24 04:24 Dose: 500 mg Olanzapine (Olanzapine 5 Mg Tablet) 5 mg PO TID PRN PRN Reason: agitation Last Admin: 12/23/24 22:09 Dose: 5 mg Trazodone HCl (Trazodone Hcl 50 Mg Tablet) 50 mg PO BEDTIME MRX1 PRN PRN Reason: Insomnia Last Admin: 12/23/24 22:09 Dose: 50 mg Allergies Allergies Allergy/AdvReac Type Severity Reaction Status Date / Time Beta-Blockers Allergy Hives Verified 12/21/24 12:34 (Beta-Adrenergic Bloc cephalexin [From Keflex] Allergy Vomiting Verified 12/21/24 12:34 Cephalosporins Allergy Nausea and Verified 12/21/24 12:34 Vomiting erythromycin base Allergy Hives Verified 12/21/24 12:34 peanut Allergy Unknown Verified 12/21/24 14:42 Penicillins [PCN] Allergy Nausea and Verified 12/21/24 12:34 Vomiting shellfish derived Allergy Anaphylaxis Verified 12/21/24 12:34 strawberry Allergy Anaphylaxis Verified 12/21/24 12:34 tomato Allergy Anaphylaxis Verified 12/21/24 12:34 verapamil Allergy Hives Verified 12/21/24 12:34 latex AdvReac Swelling Verified 12/21/24 12:34 Assessment & Plan Assessment & Plan (1) Bipolar disorder: Status: Acute Code(s): F31.9 - Bipolar disorder, unspecified (2) Posttraumatic stress disorder: Status: Acute Code(s): F43.10 - Post-traumatic stress disorder, unspecified Plan Patient is a 44-year-old female with history of bipolar disorder, and PTSD who self presented to ER due to suicidal ideation secondary to increased depression. Plan: CV 15 minute safety checks Continue home medications Obtain collateral Start: Depakote ER 500mg PO bedtime Encourage groups Discharge planning 12/23: Active on unit, social with peers. attending groups. Patient continues to report feeling depressed but states she is trying to remain hopeful. Patient stated, I'm hoping that the Depakote will help with my mood. I slept great last night . She reports always feeling suicidal but the idea of doing it to my kids, stops me . denies HI/VH/AH. denies side effects from starting depakote. continue current tx plan 12/24: Patient continues to report feeling depressed; reports the acuity of the unit is bothersome. attending groups. denies HI/VH/AH. passive suicidal ideation. Valproic acid level to be drawn tomorrow morning; adjust dose according to level. Patient educated on: diagnosis and medication risk/benefits Reason for continued inpatient stay Substantial Risk for: med/psych decompensation Time Spent With Patient Time: Total time managing care of this patient today _20___ minutes.
[2024-12-24] MEDS: Ibuprofen 600 MG TABLET PO (08:58)
[2024-12-24] MEDS: clonazePAM 1 MG TABLET 2 MG PO (19:19)
[2024-12-24 20:30] VITALS: BP 132/74; PULSE 106; RESP 18; TEMP 36.5; O2SAT 96
[2024-12-24] MEDS: traZODone HCL 50 MG TABLET PO ×2 (21:40→22:47)
[2024-12-24] MEDS: Divalproex Sodium ER 500 MG TAB.ER.24H PO (21:40)
[2024-12-24] MEDS: OLANZapine 5 MG TABLET PO (21:40)
[2024-12-25 08:00] VITALS: BP 110/60; PULSE 134; RESP 16; TEMP 36.4; O2SAT 97
[2024-12-25 08:13] LABS: Ammonia 36 umol/L (13-55)
[2024-12-25 08:19] LABS: Valproate 39.8 mcg/mL (50.0-100.0)
[2024-12-25 08:28] LABS: Alanine Aminotransferase 27 U/L (0-31); Alkaline Phosphatase 77 U/L (39-117); Aspartate Amino Transferase 31 U/L (5-31); Bilirubin Direct 0.1 mg/dL (0.0-0.5); Bilirubin Total 0.4 mg/dL (0.0-1.0)
[2024-12-25 09:33] VITALS: BP 110/60; PULSE 65
[2024-12-25] MEDS: clonazePAM 1 MG TABLET 2 MG PO (09:33)
[2024-12-25] MEDS: Metoprolol Succinate ER 25 MG TAB.ER.24H PO (09:33)
[2024-12-25] MEDS: OLANZapine 5 MG TABLET PO ×4 (09:40→21:32)
[2024-12-25] MEDS: hydrOXYzine HCL 25 MG TABLET PO ×2 (13:36→21:32)
--- NOTE | 2024-12-25 13:45 | HO.PSYCHPN ---
Subjective Subjective Date of Service: 12/25/24 Reason For Visit: Decompensation Interim History: Patient continues to report feeling depressed, helpless and hopeless. Tearful talking about her long course of treatment and med tratments and trauma. Says nothing has worked for her depression including ECT and VNS. Depakote level = 39 today. Will titrate. Attending groups. denies HI/VH/AH. passive suicidal ideation. Review of Systems Review of Systems Constitutional : No Weight loss, No Fever, No Chills, No Night Sweats, No Fatigue, No Malaise ENT/Mouth : No Hearing loss, No Ear Pain, No Nasal Congestion, No Sinus Pain, No Hoarseness, No sore throat, No Rhinorrhea, No Swallowing Difficulty Eyes: No Eye Pain, No Swelling, No Redness, No Foreign Body, No Discharge, No Vision Changes Cardiovascular : No Chest Pain, No SOB, No Dyspnea on Exertion, No Orthopnea, No Edema, No Palpitations Respiratory : No Cough, No Sputum, No Wheezing, No Smoke Exposure, No Dyspnea Gastrointestinal : No Nausea, No Vomiting, No Diarrhea, No Constipation, No abdominal Pain, No Hematochezia, No Melena Genitourinary : no irregular bleeding, No Dysuria, No Urinary Frequency, No Hematuria, No Urinary Incontinence, No Urgency, No Flank Pain, No Urinary Flow Changes, No Hesitancy Musculoskeletal : No joint pain, No Myalgias, No Joint Swelling Skin : No Skin Lesions, No rash Neuro : No Weakness, No Numbness, No Paresthesias, No Loss of Consciousness, No Dizziness, No Headache Psych : Complaining of anxiety and depression, SI, no HI Heme/Lymph: No Bruising, No Bleeding,No Lymphadenopathy Endocrine : No Polyuria, No Polydipsia, No Temperature Intolerance Mental Status Exam Mental Status Exam Narrative: Pt is alert and oriented; behavior is cooperative and calm; dressed in casual attire; mood is described as depressed ; eye contact appropriate; Speech is normal rate, volume and not pressured; thought process is organized and goal directed; Thought content is on tx; denies HI/VH/AH. Patient reports chronic suicidal ideation; denies intent at this time. Diagnostics Vital Signs (24Hr): Vital Signs - 24 hr 12/24/24 20:30 12/25/24 08:00 12/25/24 09:33 Temperature 97.7 F 97.5 F Pulse Rate 106 H 134 H 65 Respiratory Rate 18 16 Blood Pressure 132/74 110/60 110/60 Pulse Oximetry 96 97 Oxygen Delivery Method Room Air Room Air BMI result Body Mass Index 29.1 Labs 12/21/24 13:12 12/23/24 07:48 Labs: Laboratory Results - last 48 hr 12/25/24 07:57 Total Bilirubin 0.4 Direct Bilirubin 0.1 AST 31 ALT 27 Alkaline Phosphatase 77 Ammonia 36 Total Protein 7.0 Albumin 4.0 Valproic Acid 39.8 L Medications Medications Current Medications Acetaminophen (Acetaminophen 325 Mg Tablet) 650 mg PO Q6H PRN PRN Reason: Headache/Pain, Scale 1-10 Last Admin: 12/22/24 18:55 Dose: 650 mg Al Hydroxide/Mg Hydroxide (Magnesium Hydrox/Alum Hydrox 30 Ml Oral.Susp) 30 ml PO Q6H PRN PRN Reason: Heartburn/Nausea Clonazepam (Clonazepam 1 Mg Tablet) 2 mg PO DAILY PRN PRN Reason: anxiety Last Admin: 12/25/24 09:33 Dose: 2 mg Divalproex Sodium (Divalproex Sodium Er 500 Mg Tab.Er.24h) 500 mg PO BEDTIME [facility] Last Admin: 12/24/24 21:40 Dose: 500 mg Hydroxyzine HCl (Hydroxyzine Hcl 25 Mg Tablet) 25 mg PO Q6H PRN PRN Reason: mild anxiety Last Admin: 12/25/24 13:36 Dose: 25 mg Ibuprofen (Ibuprofen 600 Mg Tablet) 600 mg PO Q6H PRN PRN Reason: Pain, Moderate(Pain Scale 4-6) Last Admin: 12/24/24 08:58 Dose: 600 mg Magnesium Hydroxide (Milk Of Magnesia 30 Ml Oral.Susp) 30 ml PO DAILY PRN PRN Reason: Constipation Metoprolol Succinate (Metoprolol Succinate Er 25 Mg Tab.Er.24h) 25 mg PO DAILY [facility]; Protocol Last Admin: 12/25/24 09:33 Dose: 25 mg Naproxen (Naproxen 500 Mg Tablet) 500 mg PO Q12H PRN PRN Reason: Pain, Severe (Pain Scale 7-10) Last Admin: 12/24/24 04:24 Dose: 500 mg Olanzapine (Olanzapine 5 Mg Tablet) 5 mg PO TID PRN PRN Reason: agitation Last Admin: 12/25/24 13:36 Dose: 5 mg Trazodone HCl (Trazodone Hcl 50 Mg Tablet) 50 mg PO BEDTIME MRX1 PRN PRN Reason: Insomnia Last Admin: 12/24/24 22:47 Dose: 50 mg Allergies Allergies Allergy/AdvReac Type Severity Reaction Status Date / Time Beta-Blockers Allergy Hives Verified 12/21/24 12:34 (Beta-Adrenergic Bloc cephalexin [From Keflex] Allergy Vomiting Verified 12/21/24 12:34 Cephalosporins Allergy Nausea and Verified 12/21/24 12:34 Vomiting erythromycin base Allergy Hives Verified 12/21/24 12:34 peanut Allergy Unknown Verified 12/21/24 14:42 Penicillins [PCN] Allergy Nausea and Verified 12/21/24 12:34 Vomiting shellfish derived Allergy Anaphylaxis Verified 12/21/24 12:34 strawberry Allergy Anaphylaxis Verified 12/21/24 12:34 tomato Allergy Anaphylaxis Verified 12/21/24 12:34 verapamil Allergy Hives Verified 12/21/24 12:34 latex AdvReac Swelling Verified 12/21/24 12:34 Assessment & Plan Assessment & Plan (1) Bipolar disorder: Status: Acute Code(s): F31.9 - Bipolar disorder, unspecified (2) Posttraumatic stress disorder: Status: Acute Code(s): F43.10 - Post-traumatic stress disorder, unspecified Plan Patient is a 44-year-old female with history of bipolar disorder, and PTSD who self presented to ER due to suicidal ideation secondary to increased depression. Plan: CV 15 minute safety checks Continue home medications Obtain collateral Start: Depakote ER 500mg PO bedtime Encourage groups Discharge planning 12/23: Active on unit, social with peers. attending groups. Patient continues to report feeling depressed but states she is trying to remain hopeful. Patient stated, I'm hoping that the Depakote will help with my mood. I slept great last night . She reports always feeling suicidal but the idea of doing it to my kids, stops me . denies HI/VH/AH. denies side effects from starting depakote. continue current tx plan 12/24: Patient continues to report feeling depressed; reports the acuity of the unit is bothersome. attending groups. denies HI/VH/AH. passive suicidal ideation. Valproic acid level to be drawn tomorrow morning; adjust dose according to level. 12/25: Increase Depakote to 500 mg BID. continue current management and treatment plan. Reason for continued inpatient stay Substantial Risk for: harm to self, inability to function and rapid decompensation Time Spent With Patient Time: Total time managing care of this patient today ____ minutes.
[2024-12-25 19:15] VITALS: BP 150/84; PULSE 116; RESP 16; TEMP 36.6; O2SAT 96
[2024-12-25] MEDS: QUEtiapine Fumarate 25 MG TABLET PO (20:12)
[2024-12-25] MEDS: Divalproex Sodium ER 500 MG TAB.ER.24H PO (20:12)
[2024-12-25] MEDS: traZODone HCL 50 MG TABLET PO (21:32)
[2024-12-26] VITALS (7 sets, daily range): BP systolic 109–136; BP diastolic 69–97; PULSE 98–134; RESP 14–18; TEMP 36.4–36.6; O2SAT 97–100
[2024-12-26] MEDS: clonazePAM 1 MG TABLET 2 MG PO (08:39)
[2024-12-26] MEDS: Divalproex Sodium ER 500 MG TAB.ER.24H PO ×2 (08:39→20:34)
[2024-12-26] MEDS: Metoprolol Succinate ER 25 MG TAB.ER.24H PO ×3 (08:39→20:37)
[2024-12-26] MEDS: OLANZapine 5 MG TABLET PO ×3 (13:32→22:09)
[2024-12-26] MEDS: QUEtiapine Fumarate 50 MG TABLET PO ×3 (13:33→22:09)
--- NOTE | 2024-12-26 14:35 | HO.PSYCHPN ---
Subjective Subjective Date of Service: 12/26/24 Reason For Visit: Decompensation Interim History: Patient continues to report anxiety and feeling depressed, helpless and hopeless. Took Seroquel 25 mg last evening and it helped her sleep a few hours in a row. Agreeable to increase dose. Attending groups. denies HI/VH/AH. passive suicidal ideation. Review of Systems Review of Systems Constitutional : No Weight loss, No Fever, No Chills, No Night Sweats, No Fatigue, No Malaise ENT/Mouth : No Hearing loss, No Ear Pain, No Nasal Congestion, No Sinus Pain, No Hoarseness, No sore throat, No Rhinorrhea, No Swallowing Difficulty Eyes: No Eye Pain, No Swelling, No Redness, No Foreign Body, No Discharge, No Vision Changes Cardiovascular : No Chest Pain, No SOB, No Dyspnea on Exertion, No Orthopnea, No Edema, No Palpitations Respiratory : No Cough, No Sputum, No Wheezing, No Smoke Exposure, No Dyspnea Gastrointestinal : No Nausea, No Vomiting, No Diarrhea, No Constipation, No abdominal Pain, No Hematochezia, No Melena Genitourinary : no irregular bleeding, No Dysuria, No Urinary Frequency, No Hematuria, No Urinary Incontinence, No Urgency, No Flank Pain, No Urinary Flow Changes, No Hesitancy Musculoskeletal : No joint pain, No Myalgias, No Joint Swelling Skin : No Skin Lesions, No rash Neuro : No Weakness, No Numbness, No Paresthesias, No Loss of Consciousness, No Dizziness, No Headache Psych : Complaining of anxiety and depression, SI, no HI Heme/Lymph: No Bruising, No Bleeding,No Lymphadenopathy Endocrine : No Polyuria, No Polydipsia, No Temperature Intolerance Mental Status Exam Mental Status Exam Narrative: Pt is alert and oriented; behavior is cooperative and calm; dressed in casual attire; mood is described as depressed ; eye contact appropriate; Speech is normal rate, volume and not pressured; thought process is organized and goal directed; Thought content is on tx; denies HI/VH/AH. Patient reports chronic suicidal ideation; denies intent at this time. Diagnostics Vital Signs (24Hr): Vital Signs - 24 hr 12/25/24 19:15 12/26/24 07:30 12/26/24 08:39 Temperature 97.8 F 97.8 F Pulse Rate 116 H 118 H 118 H Respiratory Rate 16 14 Blood Pressure 150/84 H 109/69 109/69 Pulse Oximetry 96 98 Oxygen Delivery Method Room Air Room Air BMI result Body Mass Index 29.1 Labs 12/21/24 13:12 12/23/24 07:48 Labs: Laboratory Results - last 48 hr 12/25/24 07:57 Total Bilirubin 0.4 Direct Bilirubin 0.1 AST 31 ALT 27 Alkaline Phosphatase 77 Ammonia 36 Total Protein 7.0 Albumin 4.0 Valproic Acid 39.8 L Medications Medications Current Medications Acetaminophen (Acetaminophen 325 Mg Tablet) 650 mg PO Q6H PRN PRN Reason: Headache/Pain, Scale 1-10 Last Admin: 12/22/24 18:55 Dose: 650 mg Al Hydroxide/Mg Hydroxide (Magnesium Hydrox/Alum Hydrox 30 Ml Oral.Susp) 30 ml PO Q6H PRN PRN Reason: Heartburn/Nausea Clonazepam (Clonazepam 1 Mg Tablet) 2 mg PO DAILY PRN PRN Reason: anxiety Last Admin: 12/26/24 08:39 Dose: 2 mg Divalproex Sodium (Divalproex Sodium Er 500 Mg Tab.Er.24h) 500 mg PO BID [facility] Last Admin: 12/26/24 08:39 Dose: 500 mg Hydroxyzine HCl (Hydroxyzine Hcl 25 Mg Tablet) 25 mg PO Q6H PRN PRN Reason: mild anxiety Last Admin: 12/25/24 21:32 Dose: 25 mg Ibuprofen (Ibuprofen 600 Mg Tablet) 600 mg PO Q6H PRN PRN Reason: Pain, Moderate(Pain Scale 4-6) Last Admin: 12/24/24 08:58 Dose: 600 mg Magnesium Hydroxide (Milk Of Magnesia 30 Ml Oral.Susp) 30 ml PO DAILY PRN PRN Reason: Constipation Metoprolol Succinate (Metoprolol Succinate Er 25 Mg Tab.Er.24h) 25 mg PO DAILY [facility]; Protocol Last Admin: 12/26/24 08:39 Dose: 25 mg Naproxen (Naproxen 500 Mg Tablet) 500 mg PO Q12H PRN PRN Reason: Pain, Severe (Pain Scale 7-10) Last Admin: 12/24/24 04:24 Dose: 500 mg Olanzapine (Olanzapine 5 Mg Tablet) 5 mg PO TID PRN PRN Reason: agitation Last Admin: 12/26/24 13:32 Dose: 5 mg Quetiapine Fumarate (Quetiapine Fumarate 50 Mg Tablet) 50 mg PO TID PRN PRN Reason: severe anxiety Last Admin: 12/26/24 13:33 Dose: 50 mg Trazodone HCl (Trazodone Hcl 50 Mg Tablet) 50 mg PO BEDTIME MRX1 PRN PRN Reason: Insomnia Last Admin: 12/25/24 21:32 Dose: 50 mg Allergies Allergies Allergy/AdvReac Type Severity Reaction Status Date / Time Beta-Blockers Allergy Hives Verified 12/21/24 12:34 (Beta-Adrenergic Bloc cephalexin [From Keflex] Allergy Vomiting Verified 12/21/24 12:34 Cephalosporins Allergy Nausea and Verified 12/21/24 12:34 Vomiting erythromycin base Allergy Hives Verified 12/21/24 12:34 peanut Allergy Unknown Verified 12/21/24 14:42 Penicillins [PCN] Allergy Nausea and Verified 12/21/24 12:34 Vomiting shellfish derived Allergy Anaphylaxis Verified 12/21/24 12:34 strawberry Allergy Anaphylaxis Verified 12/21/24 12:34 tomato Allergy Anaphylaxis Verified 12/21/24 12:34 verapamil Allergy Hives Verified 12/21/24 12:34 latex AdvReac Swelling Verified 12/21/24 12:34 Assessment & Plan Assessment & Plan (1) Bipolar disorder: Status: Acute Code(s): F31.9 - Bipolar disorder, unspecified (2) Posttraumatic stress disorder: Status: Acute Code(s): F43.10 - Post-traumatic stress disorder, unspecified Plan Patient is a 44-year-old female with history of bipolar disorder, and PTSD who self presented to ER due to suicidal ideation secondary to increased depression. Plan: CV 15 minute safety checks Continue home medications Obtain collateral Start: Depakote ER 500mg PO bedtime Encourage groups Discharge planning 12/23: Active on unit, social with peers. attending groups. Patient continues to report feeling depressed but states she is trying to remain hopeful. Patient stated, I'm hoping that the Depakote will help with my mood. I slept great last night . She reports always feeling suicidal but the idea of doing it to my kids, stops me . denies HI/VH/AH. denies side effects from starting depakote. continue current tx plan 12/24: Patient continues to report feeling depressed; reports the acuity of the unit is bothersome. attending groups. denies HI/VH/AH. passive suicidal ideation. Valproic acid level to be drawn tomorrow morning; adjust dose according to level. 12/25: Increase Depakote to 500 mg BID. continue current management and treatment plan. 12/26: Increase Seroquel PRN to 50 mg. Reason for continued inpatient stay Substantial Risk for: harm to self, inability to function and rapid decompensation Time Spent With Patient Time: Total time managing care of this patient today ____ minutes.
[2024-12-26] MEDS: hydrOXYzine HCL 25 MG TABLET PO ×2 (17:41→22:09)
[2024-12-26] MEDS: Ibuprofen 600 MG TABLET PO (20:39)
[2024-12-26] MEDS: traZODone HCL 50 MG TABLET PO ×2 (20:40→22:09)
[2024-12-27 08:28] VITALS: BP 107/60; PULSE 98; RESP 16; TEMP 36.4; O2SAT 97
[2024-12-27] MEDS: Metoprolol Succinate ER 25 MG TAB.ER.24H PO ×2 (08:29→20:53)
[2024-12-27] MEDS: clonazePAM 1 MG TABLET 2 MG PO (08:29)
[2024-12-27] MEDS: Divalproex Sodium ER 500 MG TAB.ER.24H PO ×2 (08:30→20:53)
[2024-12-27] MEDS: Ibuprofen 600 MG TABLET PO (08:30)
--- NOTE | 2024-12-27 10:25 | HO.PSYCHPN ---
Subjective Subjective Date of Service: 12/27/24 Reason For Visit: Decompensation Subjective Notes: Conditional Voluntary Interim History: Active on unit, attending groups. Patient continues to report anxiety and depression; pt stated, i feel like my thoughts are still racing. I still don't feel much of a difference with the increase . labs to be drawn this week. denies HI/VH/AH. passive suicidal ideation. per nursing, slept 6 hours. Medication Compliance: Yes Side effects from medications: No Attending Groups: Yes Mental Status Exam Mental Status Exam Narrative: Pt is alert and oriented; behavior is cooperative and calm; dressed in casual attire; mood is described as depressed ; eye contact appropriate; Speech is normal rate, volume and not pressured; thought process is organized and goal directed; Thought content is on tx; denies HI/VH/AH. Patient reports chronic suicidal ideation; denies intent at this time. Diagnostics Vital Signs (24Hr): Vital Signs - 24 hr 12/26/24 18:00 12/26/24 18:47 12/26/24 20:00 Temperature 98 F Pulse Rate 134 H 129 H 130 H Respiratory Rate 18 Blood Pressure 109/70 126/73 Pulse Oximetry 97 Oxygen Delivery Method Room Air 12/26/24 20:37 12/26/24 22:00 12/27/24 08:28 Temperature 97.5 F 97.5 F Pulse Rate 130 H 98 98 Respiratory Rate 16 16 Blood Pressure 126/73 136/97 H 107/60 Pulse Oximetry 100 97 Oxygen Delivery Method Room Air Room Air BMI result Body Mass Index 29.1 Labs 12/21/24 13:12 12/23/24 07:48 Medications Medications Current Medications Acetaminophen (Acetaminophen 325 Mg Tablet) 650 mg PO Q6H PRN PRN Reason: Headache/Pain, Scale 1-10 Last Admin: 12/22/24 18:55 Dose: 650 mg Al Hydroxide/Mg Hydroxide (Magnesium Hydrox/Alum Hydrox 30 Ml Oral.Susp) 30 ml PO Q6H PRN PRN Reason: Heartburn/Nausea Clonazepam (Clonazepam 1 Mg Tablet) 2 mg PO DAILY PRN PRN Reason: anxiety Last Admin: 12/27/24 08:29 Dose: 2 mg Divalproex Sodium (Divalproex Sodium Er 500 Mg Tab.Er.24h) 500 mg PO BID [facility] Last Admin: 12/27/24 08:30 Dose: 500 mg Hydroxyzine HCl (Hydroxyzine Hcl 25 Mg Tablet) 25 mg PO Q6H PRN PRN Reason: mild anxiety Last Admin: 12/26/24 22:09 Dose: 25 mg Ibuprofen (Ibuprofen 600 Mg Tablet) 600 mg PO Q6H PRN PRN Reason: Pain, Moderate(Pain Scale 4-6) Last Admin: 12/27/24 08:30 Dose: 600 mg Magnesium Hydroxide (Milk Of Magnesia 30 Ml Oral.Susp) 30 ml PO DAILY PRN PRN Reason: Constipation Metoprolol Succinate (Metoprolol Succinate Er 25 Mg Tab.Er.24h) 25 mg PO BID [facility]; Protocol Last Admin: 12/27/24 08:29 Dose: 25 mg Naproxen (Naproxen 500 Mg Tablet) 500 mg PO Q12H PRN PRN Reason: Pain, Severe (Pain Scale 7-10) Last Admin: 12/24/24 04:24 Dose: 500 mg Olanzapine (Olanzapine 5 Mg Tablet) 5 mg PO TID PRN PRN Reason: agitation Last Admin: 12/26/24 22:09 Dose: 5 mg Quetiapine Fumarate (Quetiapine Fumarate 50 Mg Tablet) 50 mg PO TID PRN PRN Reason: severe anxiety Last Admin: 12/26/24 22:09 Dose: 50 mg Trazodone HCl (Trazodone Hcl 50 Mg Tablet) 50 mg PO BEDTIME MRX1 PRN PRN Reason: Insomnia Last Admin: 12/26/24 22:09 Dose: 50 mg Allergies Allergies Allergy/AdvReac Type Severity Reaction Status Date / Time Beta-Blockers Allergy Hives Verified 12/21/24 12:34 (Beta-Adrenergic Bloc cephalexin [From Keflex] Allergy Vomiting Verified 12/21/24 12:34 Cephalosporins Allergy Nausea and Verified 12/21/24 12:34 Vomiting erythromycin base Allergy Hives Verified 12/21/24 12:34 peanut Allergy Unknown Verified 12/21/24 14:42 Penicillins [PCN] Allergy Nausea and Verified 12/21/24 12:34 Vomiting shellfish derived Allergy Anaphylaxis Verified 12/21/24 12:34 strawberry Allergy Anaphylaxis Verified 12/21/24 12:34 tomato Allergy Anaphylaxis Verified 12/21/24 12:34 verapamil Allergy Hives Verified 12/21/24 12:34 latex AdvReac Swelling Verified 12/21/24 12:34 Assessment & Plan Assessment & Plan (1) Bipolar disorder: Status: Acute Code(s): F31.9 - Bipolar disorder, unspecified (2) Posttraumatic stress disorder: Status: Acute Code(s): F43.10 - Post-traumatic stress disorder, unspecified Plan Patient is a 44-year-old female with history of bipolar disorder, and PTSD who self presented to ER due to suicidal ideation secondary to increased depression. Plan: CV 15 minute safety checks Continue home medications Obtain collateral Start: Depakote ER 500mg PO bedtime Encourage groups Discharge planning 12/23: Active on unit, social with peers. attending groups. Patient continues to report feeling depressed but states she is trying to remain hopeful. Patient stated, I'm hoping that the Depakote will help with my mood. I slept great last night . She reports always feeling suicidal but the idea of doing it to my kids, stops me . denies HI/VH/AH. denies side effects from starting depakote. continue current tx plan 12/24: Patient continues to report feeling depressed; reports the acuity of the unit is bothersome. attending groups. denies HI/VH/AH. passive suicidal ideation. Valproic acid level to be drawn tomorrow morning; adjust dose according to level. 12/25: Increase Depakote to 500 mg BID. continue current management and treatment plan. 12/26: Increase Seroquel PRN to 50 mg. 12/27: Active on unit, attending groups. Patient continues to report anxiety and depression; pt stated, i feel like my thoughts are still racing. I still don't feel much of a difference with the increase . labs to be drawn this week. denies HI/VH/AH. passive suicidal ideation. per nursing, slept 6 hours. continue current tx plan Patient educated on: diagnosis and medication risk/benefits Reason for continued inpatient stay Substantial Risk for: med/psych decompensation Time Spent With Patient Time: Total time managing care of this patient today _20___ minutes.
[2024-12-27 13:00] VITALS: BP 120/76; PULSE 114
[2024-12-27] MEDS: OLANZapine 5 MG TABLET PO ×3 (13:18→22:05)
[2024-12-27] MEDS: QUEtiapine Fumarate 50 MG TABLET PO ×3 (13:18→22:05)
[2024-12-27] MEDS: Lidocaine 4 % Patch ADH..PATCH 1 PATCH TRANSDERMA (17:17)
[2024-12-27 18:00] VITALS: BP 116/68; PULSE 114; RESP 18; TEMP 36.6; O2SAT 97
[2024-12-27] MEDS: traZODone HCL 50 MG TABLET PO ×2 (20:51→22:05)
[2024-12-27] MEDS: Acetaminophen 325 MG TABLET 650 MG PO (20:51)
[2024-12-27] MEDS: hydrOXYzine HCL 25 MG TABLET PO (20:51)
[2024-12-27 20:53] VITALS: BP 116/78; PULSE 114
[2024-12-28 07:42] VITALS: BP 105/51; PULSE 76; RESP 16; TEMP 36.9; O2SAT 97
[2024-12-28] MEDS: Ibuprofen 600 MG TABLET PO (08:27)
[2024-12-28] MEDS: Metoprolol Succinate ER 25 MG TAB.ER.24H PO ×2 (08:28→20:46)
[2024-12-28] MEDS: Divalproex Sodium ER 500 MG TAB.ER.24H PO ×2 (08:28→20:46)
[2024-12-28] MEDS: clonazePAM 1 MG TABLET 2 MG PO (08:28)
--- NOTE | 2024-12-28 10:25 | HO.PSYCHPN ---
Subjective Subjective Date of Service: 12/28/24 Reason For Visit: Decompensation Subjective Notes: Conditional Voluntary Interim History: Active on unit, social with peers. attending groups. Patient reports her depression is lower today; states she is trying to be positive . denies HI/VH/AH. passive suicidal ideation. labs to be drawn today. Will adjust dose of Depakote once receive lab results. Trazodone increased to 100mg PO bedtime PRN Seroquel increased to 75mg PO TID PRN Hydroxyzine increased to 50mg PO Q6HR PRN DC Zyprexa; pt reports it is not helpful. Medication Compliance: Yes Side effects from medications: No Attending Groups: Yes Mental Status Exam Mental Status Exam Narrative: Pt is alert and oriented; behavior is cooperative and calm; dressed in casual attire; mood is described as depressed ; eye contact appropriate; Speech is normal rate, volume and not pressured; thought process is organized and goal directed; Thought content is on tx; denies HI/VH/AH. Patient reports chronic suicidal ideation; denies intent at this time. Diagnostics Vital Signs (24Hr): Vital Signs - 24 hr 12/27/24 13:00 12/27/24 18:00 12/27/24 20:53 Temperature 98 F Pulse Rate 114 H 114 H 114 H Respiratory Rate 18 Blood Pressure 120/76 116/68 116/78 Pulse Oximetry 97 Oxygen Delivery Method Room Air 12/28/24 07:42 Temperature 98.5 F Pulse Rate 76 Respiratory Rate 16 Blood Pressure 105/51 L Pulse Oximetry 97 Oxygen Delivery Method Room Air BMI result Body Mass Index 29.1 Labs 12/21/24 13:12 12/23/24 07:48 Medications Medications Current Medications Acetaminophen (Acetaminophen 325 Mg Tablet) 650 mg PO Q6H PRN PRN Reason: Headache/Pain, Scale 1-10 Last Admin: 12/27/24 20:51 Dose: 650 mg Al Hydroxide/Mg Hydroxide (Magnesium Hydrox/Alum Hydrox 30 Ml Oral.Susp) 30 ml PO Q6H PRN PRN Reason: Heartburn/Nausea Clonazepam (Clonazepam 1 Mg Tablet) 2 mg PO DAILY PRN PRN Reason: anxiety Last Admin: 12/28/24 08:28 Dose: 2 mg Divalproex Sodium (Divalproex Sodium Er 500 Mg Tab.Er.24h) 500 mg PO BID [facility] Last Admin: 12/28/24 08:28 Dose: 500 mg Hydroxyzine HCl (Hydroxyzine Hcl 25 Mg Tablet) 25 mg PO Q6H PRN PRN Reason: mild anxiety Last Admin: 12/27/24 20:51 Dose: 25 mg Ibuprofen (Ibuprofen 600 Mg Tablet) 600 mg PO Q6H PRN PRN Reason: Pain, Moderate(Pain Scale 4-6) Last Admin: 12/28/24 08:27 Dose: 600 mg Lidocaine (Lidocaine 4 % Patch Adh..Patch) 1 patch TRANSDERMA DAILY PRN; Protocol PRN Reason: Pain, Mild (Pain Scale 1-3) Last Admin: 12/27/24 17:17 Dose: 1 patch Magnesium Hydroxide (Milk Of Magnesia 30 Ml Oral.Susp) 30 ml PO DAILY PRN PRN Reason: Constipation Metoprolol Succinate (Metoprolol Succinate Er 25 Mg Tab.Er.24h) 25 mg PO BID [facility]; Protocol Last Admin: 12/28/24 08:28 Dose: 25 mg Naproxen (Naproxen 500 Mg Tablet) 500 mg PO Q12H PRN PRN Reason: Pain, Severe (Pain Scale 7-10) Last Admin: 12/24/24 04:24 Dose: 500 mg Olanzapine (Olanzapine 5 Mg Tablet) 5 mg PO TID PRN PRN Reason: agitation Last Admin: 12/27/24 22:05 Dose: 5 mg Quetiapine Fumarate (Quetiapine Fumarate 50 Mg Tablet) 50 mg PO TID PRN PRN Reason: severe anxiety Last Admin: 12/27/24 22:05 Dose: 50 mg Trazodone HCl (Trazodone Hcl 50 Mg Tablet) 50 mg PO BEDTIME MRX1 PRN PRN Reason: Insomnia Last Admin: 12/27/24 22:05 Dose: 50 mg Allergies Allergies Allergy/AdvReac Type Severity Reaction Status Date / Time Beta-Blockers Allergy Hives Verified 12/21/24 12:34 (Beta-Adrenergic Bloc cephalexin [From Keflex] Allergy Vomiting Verified 12/21/24 12:34 Cephalosporins Allergy Nausea and Verified 12/21/24 12:34 Vomiting erythromycin base Allergy Hives Verified 12/21/24 12:34 peanut Allergy Unknown Verified 12/21/24 14:42 Penicillins [PCN] Allergy Nausea and Verified 12/21/24 12:34 Vomiting shellfish derived Allergy Anaphylaxis Verified 12/21/24 12:34 strawberry Allergy Anaphylaxis Verified 12/21/24 12:34 tomato Allergy Anaphylaxis Verified 12/21/24 12:34 verapamil Allergy Hives Verified 12/21/24 12:34 latex AdvReac Swelling Verified 12/21/24 12:34 Assessment & Plan Assessment & Plan (1) Bipolar disorder: Status: Acute Code(s): F31.9 - Bipolar disorder, unspecified (2) Posttraumatic stress disorder: Status: Acute Code(s): F43.10 - Post-traumatic stress disorder, unspecified Plan Patient is a 44-year-old female with history of bipolar disorder, and PTSD who self presented to ER due to suicidal ideation secondary to increased depression. Plan: CV 15 minute safety checks Continue home medications Obtain collateral Start: Depakote ER 500mg PO bedtime Encourage groups Discharge planning 12/23: Active on unit, social with peers. attending groups. Patient continues to report feeling depressed but states she is trying to remain hopeful. Patient stated, I'm hoping that the Depakote will help with my mood. I slept great last night . She reports always feeling suicidal but the idea of doing it to my kids, stops me . denies HI/VH/AH. denies side effects from starting depakote. continue current tx plan 12/24: Patient continues to report feeling depressed; reports the acuity of the unit is bothersome. attending groups. denies HI/VH/AH. passive suicidal ideation. Valproic acid level to be drawn tomorrow morning; adjust dose according to level. 12/25: Increase Depakote to 500 mg BID. continue current management and treatment plan. 12/26: Increase Seroquel PRN to 50 mg. 12/27: Active on unit, attending groups. Patient continues to report anxiety and depression; pt stated, i feel like my thoughts are still racing. I still don't feel much of a difference with the increase . labs to be drawn this week. denies HI/VH/AH. passive suicidal ideation. per nursing, slept 6 hours. continue current tx plan 12/28: Active on unit, social with peers. attending groups. Patient reports her depression is lower today; states she is trying to be positive . denies HI/VH/AH. passive suicidal ideation. labs to be drawn today. Will adjust dose of Depakote once receive lab results. Trazodone increased to 100mg PO bedtime PRN Seroquel increased to 75mg PO TID PRN Hydroxyzine increased to 50mg PO Q6HR PRN DC Zyprexa; pt reports it is not helpful. Patient educated on: diagnosis, medication risk/benefits and therapeutic strategies Reason for continued inpatient stay Substantial Risk for: med/psych decompensation Time Spent With Patient Time: Total time managing care of this patient today _20___ minutes.
[2024-12-28] MEDS: OLANZapine 5 MG TABLET PO (10:30)
[2024-12-28] MEDS: QUEtiapine Fumarate 50 MG TABLET PO (10:30)
[2024-12-28 13:00] VITALS: BP 122/76; PULSE 112; RESP 17; TEMP 37; O2SAT 96
[2024-12-28] MEDS: hydrOXYzine HCL 50 MG TABLET PO ×2 (13:34→20:52)
[2024-12-28] MEDS: QUEtiapine Fumarate 25 MG TABLET 75 MG PO ×2 (17:14→20:51)
[2024-12-28 18:00] VITALS: BP 116/69; PULSE 113; RESP 18; TEMP 36.8; O2SAT 97
[2024-12-28 19:02] LABS: Ammonia 42 umol/L (13-55)
[2024-12-28 19:10] LABS: Alanine Aminotransferase 26 U/L (0-31); Albumin Level 4.3 g/dL (3.5-5.0); Alkaline Phosphatase 73 U/L (39-117); Aspartate Amino Transferase 29 U/L (5-31); Bilirubin Direct 0.1 mg/dL (0.0-0.5); Bilirubin Total 0.3 mg/dL (0.0-1.0); Total Protein 7.3 g/dL (6.5-8.0)
[2024-12-28 19:11] LABS: Valproate 109.1 mcg/mL (50.0-100.0)
[2024-12-28] MEDS: traZODone HCL 100 MG TABLET PO (20:53)
[2024-12-29] MEDS: Ibuprofen 600 MG TABLET PO (00:10)
[2024-12-29 07:38] VITALS: BP 118/70; PULSE 89; RESP 16; TEMP 36.4; O2SAT 99
[2024-12-29] MEDS: Divalproex Sodium ER 500 MG TAB.ER.24H PO (08:16)
[2024-12-29] MEDS: clonazePAM 1 MG TABLET 2 MG PO (08:16)
[2024-12-29] MEDS: Metoprolol Succinate ER 25 MG TAB.ER.24H PO ×2 (08:16→20:28)
--- NOTE | 2024-12-29 09:22 | HO.PSYCHPN ---
Subjective Subjective Date of Service: 12/29/24 Reason For Visit: Decompensation Subjective Notes: Conditional Voluntary Interim History: Patient continues to report feeling depressed with some improvement. Valproic acid level 109.1 on 12/28/24; Depakote level decreased to 750mg PO bedtime; pt aware. future oriented. Per nursing, slept 5 hours. Patient would like to discharge to be able to celebrate her anniversary this weekend. Discussed possibly discharging on Friday with plans to attend [facility]. Medication Compliance: Yes Side effects from medications: No Attending Groups: Yes Mental Status Exam Mental Status Exam Narrative: Pt is alert and oriented; behavior is cooperative and calm; dressed in casual attire; mood is described as depressed ; eye contact appropriate; Speech is normal rate, volume and not pressured; thought process is organized and goal directed; Thought content is on tx; denies HI/VH/AH. Patient reports chronic suicidal ideation; denies intent at this time. Diagnostics Vital Signs (24Hr): Vital Signs - 24 hr 12/28/24 13:00 12/28/24 18:00 12/29/24 07:38 Temperature 98.6 F 98.3 F 97.6 F Pulse Rate 112 H 113 H 89 Respiratory Rate 17 18 16 Blood Pressure 122/76 116/69 118/70 Pulse Oximetry 96 97 99 Oxygen Delivery Method Room Air Room Air Room Air BMI result Body Mass Index 29.1 Labs 12/21/24 13:12 12/23/24 07:48 Labs: Laboratory Results - last 48 hr 12/28/24 18:48 Total Bilirubin 0.3 Direct Bilirubin 0.1 AST 29 ALT 26 Alkaline Phosphatase 73 Ammonia 42 Total Protein 7.3 Albumin 4.3 Valproic Acid 109.1 H Medications Medications Current Medications Acetaminophen (Acetaminophen 325 Mg Tablet) 650 mg PO Q6H PRN PRN Reason: Headache/Pain, Scale 1-10 Last Admin: 12/27/24 20:51 Dose: 650 mg Al Hydroxide/Mg Hydroxide (Magnesium Hydrox/Alum Hydrox 30 Ml Oral.Susp) 30 ml PO Q6H PRN PRN Reason: Heartburn/Nausea Clonazepam (Clonazepam 1 Mg Tablet) 2 mg PO DAILY PRN PRN Reason: anxiety Last Admin: 12/29/24 08:16 Dose: 2 mg Divalproex Sodium (Divalproex Sodium Er 500 Mg Tab.Er.24h) 500 mg PO BID [facility] Last Admin: 12/29/24 08:16 Dose: 500 mg Hydroxyzine HCl (Hydroxyzine Hcl 50 Mg Tablet) 50 mg PO Q6H PRN PRN Reason: mild anxiety Last Admin: 12/28/24 20:52 Dose: 50 mg Ibuprofen (Ibuprofen 600 Mg Tablet) 600 mg PO Q6H PRN PRN Reason: Pain, Moderate(Pain Scale 4-6) Last Admin: 12/29/24 00:10 Dose: 600 mg Lidocaine (Lidocaine 4 % Patch Adh..Patch) 1 patch TRANSDERMA DAILY PRN; Protocol PRN Reason: Pain, Mild (Pain Scale 1-3) Last Admin: 12/27/24 17:17 Dose: 1 patch Magnesium Hydroxide (Milk Of Magnesia 30 Ml Oral.Susp) 30 ml PO DAILY PRN PRN Reason: Constipation Metoprolol Succinate (Metoprolol Succinate Er 25 Mg Tab.Er.24h) 25 mg PO BID [facility]; Protocol Last Admin: 12/29/24 08:16 Dose: 25 mg Naproxen (Naproxen 500 Mg Tablet) 500 mg PO Q12H PRN PRN Reason: Pain, Severe (Pain Scale 7-10) Last Admin: 12/24/24 04:24 Dose: 500 mg Quetiapine Fumarate (Quetiapine Fumarate 25 Mg Tablet) 75 mg PO TID PRN PRN Reason: severe anxiety Last Admin: 12/28/24 20:51 Dose: 75 mg Trazodone HCl (Trazodone Hcl 100 Mg Tablet) 100 mg PO BEDTIME PRN PRN Reason: Insomnia Last Admin: 12/28/24 20:53 Dose: 100 mg Allergies Allergies Allergy/AdvReac Type Severity Reaction Status Date / Time Beta-Blockers Allergy Hives Verified 12/21/24 12:34 (Beta-Adrenergic Bloc cephalexin [From Keflex] Allergy Vomiting Verified 12/21/24 12:34 Cephalosporins Allergy Nausea and Verified 12/21/24 12:34 Vomiting erythromycin base Allergy Hives Verified 12/21/24 12:34 peanut Allergy Unknown Verified 12/21/24 14:42 Penicillins [PCN] Allergy Nausea and Verified 12/21/24 12:34 Vomiting shellfish derived Allergy Anaphylaxis Verified 12/21/24 12:34 strawberry Allergy Anaphylaxis Verified 12/21/24 12:34 tomato Allergy Anaphylaxis Verified 12/21/24 12:34 verapamil Allergy Hives Verified 12/21/24 12:34 latex AdvReac Swelling Verified 12/21/24 12:34 Assessment & Plan Assessment & Plan (1) Bipolar disorder: Status: Acute Code(s): F31.9 - Bipolar disorder, unspecified (2) Posttraumatic stress disorder: Status: Acute Code(s): F43.10 - Post-traumatic stress disorder, unspecified Plan Patient is a 44-year-old female with history of bipolar disorder, and PTSD who self presented to ER due to suicidal ideation secondary to increased depression. Plan: CV 15 minute safety checks Continue home medications Obtain collateral Start: Depakote ER 500mg PO bedtime Encourage groups Discharge planning 12/23: Active on unit, social with peers. attending groups. Patient continues to report feeling depressed but states she is trying to remain hopeful. Patient stated, I'm hoping that the Depakote will help with my mood. I slept great last night . She reports always feeling suicidal but the idea of doing it to my kids, stops me . denies HI/VH/AH. denies side effects from starting depakote. continue current tx plan 12/24: Patient continues to report feeling depressed; reports the acuity of the unit is bothersome. attending groups. denies HI/VH/AH. passive suicidal ideation. Valproic acid level to be drawn tomorrow morning; adjust dose according to level. 12/25: Increase Depakote to 500 mg BID. continue current management and treatment plan. 12/26: Increase Seroquel PRN to 50 mg. 12/27: Active on unit, attending groups. Patient continues to report anxiety and depression; pt stated, i feel like my thoughts are still racing. I still don't feel much of a difference with the increase . labs to be drawn this week. denies HI/VH/AH. passive suicidal ideation. per nursing, slept 6 hours. continue current tx plan 12/28: Active on unit, social with peers. attending groups. Patient reports her depression is lower today; states she is trying to be positive . denies HI/VH/AH. passive suicidal ideation. labs to be drawn today. Will adjust dose of Depakote once receive lab results. Trazodone increased to 100mg PO bedtime PRN Seroquel increased to 75mg PO TID PRN Hydroxyzine increased to 50mg PO Q6HR PRN DC Zyprexa; pt reports it is not helpful. 12/29: Patient continues to report feeling depressed with some improvement. Valproic acid level 109.1 on 12/28/24; Depakote level decreased to 750mg PO bedtime; pt aware. future oriented. Per nursing, slept 5 hours. Patient would like to discharge to be able to celebrate her anniversary this weekend. Discussed possibly discharging on Friday with plans to attend PHP. Patient educated on: diagnosis, medication risk/benefits and therapeutic strategies Reason for continued inpatient stay Substantial Risk for: med/psych decompensation Time Spent With Patient Time: Total time managing care of this patient today _20___ minutes.
[2024-12-29] MEDS: QUEtiapine Fumarate 25 MG TABLET 75 MG PO ×2 (15:08→20:29)
[2024-12-29 15:24] VITALS: BP 126/74; PULSE 105; RESP 18; O2SAT 97
[2024-12-29 19:53] VITALS: BP 119/77; PULSE 112; RESP 16; TEMP 36.4; O2SAT 97
[2024-12-29] MEDS: Divalproex Sodium ER 250 MG TAB.ER.24H 750 MG PO (20:28)
[2024-12-29] MEDS: traZODone HCL 100 MG TABLET PO (20:29)
[2024-12-29] MEDS: hydrOXYzine HCL 50 MG TABLET PO (20:29)
[2024-12-29] MEDS: Hydrocortisone 1 % Ointment 28.35 GM TUBE 1 APPL TOPICAL (20:31)
[2024-12-30 07:00] VITALS: BMI 29.7
[2024-12-30 07:41] VITALS: BP 110/67; PULSE 99; RESP 16; TEMP 36.4; O2SAT 97
[2024-12-30 08:00] VITALS: BP 110/67; PULSE 99
[2024-12-30] MEDS: Metoprolol Succinate ER 25 MG TAB.ER.24H PO ×2 (08:00→20:26)
[2024-12-30] MEDS: Ibuprofen 600 MG TABLET PO ×2 (08:14→20:27)
[2024-12-30] MEDS: clonazePAM 1 MG TABLET 2 MG PO (08:14)
--- NOTE | 2024-12-30 11:04 | HO.PSYCHPN ---
Subjective Subjective Date of Service: 12/30/24 Reason For Visit: Decompensation Subjective Notes: Conditional Voluntary Interim History: Active on unit, social with peers. attending groups. Patient reports feeling anxious about returning home; pt stated, I'm always anxious. I've been anxious for 35 years. I'm worried about cutting because I like doing it.It's a way for me to cope. Passive SI. denies HI/VH/AH. Patient reports she will try other coping skills when at home. Patient reports she plans on following up with her outpatient providers and attending PHP after discharge. Medication Compliance: Yes Side effects from medications: No Attending Groups: Yes Mental Status Exam Mental Status Exam Narrative: Pt is alert and oriented; behavior is cooperative and calm; dressed in casual attire; mood is described as anxious ; eye contact appropriate; Speech is normal rate, volume and not pressured; thought process is organized; Thought content is on tx, future oriented; denies HI/VH/AH. Patient reports chronic suicidal ideation; denies intent/plan at this time. Diagnostics Vital Signs (24Hr): Vital Signs - 24 hr 12/29/24 15:24 12/29/24 19:53 12/30/24 07:41 Temperature 97.6 F 97.6 F Pulse Rate 105 H 112 H 99 Respiratory Rate 18 16 16 Blood Pressure 126/74 119/77 110/67 Pulse Oximetry 97 97 97 Oxygen Delivery Method Room Air Room Air Room Air 12/30/24 08:00 Temperature Pulse Rate 99 Respiratory Rate Blood Pressure 110/67 Pulse Oximetry Oxygen Delivery Method BMI result Body Mass Index 29.1 Labs 12/21/24 13:12 12/23/24 07:48 Labs: Laboratory Results - last 48 hr 12/28/24 18:48 Total Bilirubin 0.3 Direct Bilirubin 0.1 AST 29 ALT 26 Alkaline Phosphatase 73 Ammonia 42 Total Protein 7.3 Albumin 4.3 Valproic Acid 109.1 H Medications Medications Current Medications Acetaminophen (Acetaminophen 325 Mg Tablet) 650 mg PO Q6H PRN PRN Reason: Headache/Pain, Scale 1-10 Last Admin: 12/27/24 20:51 Dose: 650 mg Al Hydroxide/Mg Hydroxide (Magnesium Hydrox/Alum Hydrox 30 Ml Oral.Susp) 30 ml PO Q6H PRN PRN Reason: Heartburn/Nausea Clonazepam (Clonazepam 1 Mg Tablet) 2 mg PO DAILY PRN PRN Reason: anxiety Last Admin: 12/30/24 08:14 Dose: 2 mg Divalproex Sodium (Divalproex Sodium Er 250 Mg Tab.Er.24h) 750 mg PO BEDTIME [facility] Last Admin: 12/29/24 20:28 Dose: 750 mg Hydrocortisone (Hydrocortisone 1 % Ointment 28.35 Gm Tube) 1 appl TOPICAL DAILY PRN; Protocol PRN Reason: itching Last Admin: 12/29/24 20:31 Dose: 1 appl Hydroxyzine HCl (Hydroxyzine Hcl 50 Mg Tablet) 50 mg PO Q6H PRN PRN Reason: mild anxiety Last Admin: 12/29/24 20:29 Dose: 50 mg Ibuprofen (Ibuprofen 600 Mg Tablet) 600 mg PO Q6H PRN PRN Reason: Pain, Moderate(Pain Scale 4-6) Last Admin: 12/30/24 08:14 Dose: 600 mg Lidocaine (Lidocaine 4 % Patch Adh..Patch) 1 patch TRANSDERMA DAILY PRN; Protocol PRN Reason: Pain, Mild (Pain Scale 1-3) Last Admin: 12/27/24 17:17 Dose: 1 patch Magnesium Hydroxide (Milk Of Magnesia 30 Ml Oral.Susp) 30 ml PO DAILY PRN PRN Reason: Constipation Metoprolol Succinate (Metoprolol Succinate Er 25 Mg Tab.Er.24h) 25 mg PO BID [facility]; Protocol Last Admin: 12/30/24 08:00 Dose: 25 mg Naproxen (Naproxen 500 Mg Tablet) 500 mg PO Q12H PRN PRN Reason: Pain, Severe (Pain Scale 7-10) Last Admin: 12/24/24 04:24 Dose: 500 mg Quetiapine Fumarate (Quetiapine Fumarate 25 Mg Tablet) 75 mg PO TID PRN PRN Reason: severe anxiety Last Admin: 12/29/24 20:29 Dose: 75 mg Trazodone HCl (Trazodone Hcl 100 Mg Tablet) 100 mg PO BEDTIME PRN PRN Reason: Insomnia Last Admin: 12/29/24 20:29 Dose: 100 mg Allergies Allergies Allergy/AdvReac Type Severity Reaction Status Date / Time Beta-Blockers Allergy Hives Verified 12/21/24 12:34 (Beta-Adrenergic Bloc cephalexin [From Keflex] Allergy Vomiting Verified 12/21/24 12:34 Cephalosporins Allergy Nausea and Verified 12/21/24 12:34 Vomiting erythromycin base Allergy Hives Verified 12/21/24 12:34 peanut Allergy Unknown Verified 12/21/24 14:42 Penicillins [PCN] Allergy Nausea and Verified 12/21/24 12:34 Vomiting shellfish derived Allergy Anaphylaxis Verified 12/21/24 12:34 strawberry Allergy Anaphylaxis Verified 12/21/24 12:34 tomato Allergy Anaphylaxis Verified 12/21/24 12:34 verapamil Allergy Hives Verified 12/21/24 12:34 latex AdvReac Swelling Verified 12/21/24 12:34 Assessment & Plan Assessment & Plan (1) Bipolar disorder: Status: Acute Code(s): F31.9 - Bipolar disorder, unspecified (2) Posttraumatic stress disorder: Status: Acute Code(s): F43.10 - Post-traumatic stress disorder, unspecified Plan Patient is a 44-year-old female with history of bipolar disorder, and PTSD who self presented to ER due to suicidal ideation secondary to increased depression. Plan: CV 15 minute safety checks Continue home medications Obtain collateral Start: Depakote ER 500mg PO bedtime Encourage groups Discharge planning 12/23: Active on unit, social with peers. attending groups. Patient continues to report feeling depressed but states she is trying to remain hopeful. Patient stated, I'm hoping that the Depakote will help with my mood. I slept great last night . She reports always feeling suicidal but the idea of doing it to my kids, stops me . denies HI/VH/AH. denies side effects from starting depakote. continue current tx plan 12/24: Patient continues to report feeling depressed; reports the acuity of the unit is bothersome. attending groups. denies HI/VH/AH. passive suicidal ideation. Valproic acid level to be drawn tomorrow morning; adjust dose according to level. 12/25: Increase Depakote to 500 mg BID. continue current management and treatment plan. 12/26: Increase Seroquel PRN to 50 mg. 12/27: Active on unit, attending groups. Patient continues to report anxiety and depression; pt stated, i feel like my thoughts are still racing. I still don't feel much of a difference with the increase . labs to be drawn this week. denies HI/VH/AH. passive suicidal ideation. per nursing, slept 6 hours. continue current tx plan 12/28: Active on unit, social with peers. attending groups. Patient reports her depression is lower today; states she is trying to be positive . denies HI/VH/AH. passive suicidal ideation. labs to be drawn today. Will adjust dose of Depakote once receive lab results. Trazodone increased to 100mg PO bedtime PRN Seroquel increased to 75mg PO TID PRN Hydroxyzine increased to 50mg PO Q6HR PRN DC Zyprexa; pt reports it is not helpful. 12/29: Patient continues to report feeling depressed with some improvement. Valproic acid level 109.1 on 12/28/24; Depakote level decreased to 750mg PO bedtime; pt aware. future oriented. Per nursing, slept 5 hours. Patient would like to discharge to be able to celebrate her anniversary this weekend. Discussed possibly discharging on Friday with plans to attend PHP. 12/30: Active on unit, social with peers. attending groups. Patient reports feeling anxious about returning home; pt stated, I'm always anxious. I've been anxious for 35 years. I'm worried about cutting because I like doing it.It's a way for me to cope. Passive SI. denies HI/VH/AH. Patient reports she will try other coping skills when at home. Patient reports she plans on following up with her outpatient providers and attending PHP after discharge. Patient educated on: diagnosis, medication risk/benefits and therapeutic strategies Reason for continued inpatient stay Substantial Risk for: stable for discharge Time Spent With Patient Time: Total time managing care of this patient today _20___ minutes.
[2024-12-30] MEDS: QUEtiapine Fumarate 25 MG TABLET 75 MG PO ×3 (12:28→20:26)
[2024-12-30] MEDS: hydrOXYzine HCL 50 MG TABLET PO (15:24)
[2024-12-30 16:19] VITALS: BP 123/74; PULSE 93; RESP 16; TEMP 36.6; O2SAT 99
[2024-12-30 19:24] VITALS: BP 130/70; PULSE 105; RESP 16; TEMP 36.4; O2SAT 97
[2024-12-30] MEDS: Divalproex Sodium ER 250 MG TAB.ER.24H 750 MG PO (20:23)
[2024-12-30 20:26] VITALS: BP 130/70
[2024-12-30] MEDS: traZODone HCL 100 MG TABLET PO (20:27)
[2024-12-31] VITALS (8 sets, daily range): BP systolic 105–112; BP diastolic 57–70; PULSE 96–100; RESP 16; TEMP 36.5–36.6; O2SAT 96–98
[2024-12-31] MEDS: clonazePAM 1 MG TABLET 2 MG PO (05:24)
[2024-12-31] MEDS: Lidocaine 4 % Patch ADH..PATCH 1 PATCH TRANSDERMA (08:24)
[2024-12-31] MEDS: NaPROXEN 500 MG TABLET PO (08:25)
[2024-12-31] MEDS: QUEtiapine Fumarate 25 MG TABLET 75 MG PO ×3 (08:25→20:09)
[2024-12-31] MEDS: Metoprolol Succinate ER 25 MG TAB.ER.24H PO ×2 (08:25→20:11)
[2024-12-31 08:26] LABS: Ammonia 65 umol/L (13-55)
[2024-12-31 08:32] LABS: Valproate 85.7 mcg/mL (50.0-100.0)
[2024-12-31 08:34] LABS: Alanine Aminotransferase 20 U/L (0-31); Albumin Level 4.1 g/dL (3.5-5.0); Alkaline Phosphatase 71 U/L (39-117); Aspartate Amino Transferase 26 U/L (5-31); Bilirubin Direct < 0.2 mg/dL (0.0-0.5); Bilirubin Total 0.2 mg/dL (0.0-1.0)
[2024-12-31] MEDS: Lactulose 20 GM/30 ML SOLUTION 40 GM PO (09:48)
[2024-12-31] MEDS: Cariprazine HCl 1.5 MG CAPSULE PO (11:52)
[2024-12-31] MEDS: cloNIDine HCL 0.1 MG TABLET PO ×3 (11:52→20:10)
--- NOTE | 2024-12-31 13:35 | P.PNPSI_ITS ---
Subjective Subjective Date of Service: 12/31/24 Reason For Visit: Decompensation Interim History: calm, cooperative. psych Hx and Sx reviewed. meds Hx reviewed. PTSD/BPD seems more likely than bipolar; discussed with pt. pt amenable to try vraylar and clonidine. per staff, ammonia elevated on VPA. Mental Status Exam Mental Status Exam Narrative: Pt is alert and oriented; behavior is cooperative and calm; dressed in casual attire; mood is described as anxious ; eye contact appropriate; Speech is normal rate, volume and not pressured; thought process is organized; Thought content is on tx, future oriented; Patient reports chronic suicidal ideation; denies intent/plan at this time. also c/o seeing things, which she feels staff have not been taking seriously. Diagnostics Vital Signs (24Hr): Vital Signs - 24 hr 12/30/24 16:19 12/30/24 19:24 12/30/24 20:26 Temperature 98 F 97.5 F Pulse Rate 93 105 H Respiratory Rate 16 16 Blood Pressure 123/74 130/70 130/70 Pulse Oximetry 99 97 Oxygen Delivery Method Room Air Room Air 12/31/24 07:00 12/31/24 08:25 12/31/24 11:52 Temperature 97.7 F Pulse Rate 96 96 Respiratory Rate 16 Blood Pressure 111/59 L 112/60 109/70 Pulse Oximetry 96 Oxygen Delivery Method Room Air 12/31/24 13:00 Temperature Pulse Rate 98 Respiratory Rate Blood Pressure 109/70 Pulse Oximetry 98 Oxygen Delivery Method Room Air BMI result Body Mass Index 29.7 Labs 12/21/24 13:12 12/23/24 07:48 Labs: Laboratory Results - last 48 hr 12/31/24 12/31/24 08:04 08:05 Total Bilirubin 0.2 Direct Bilirubin < 0.2 AST 26 ALT 20 Alkaline Phosphatase 71 Ammonia 65 H Total Protein 7.0 Albumin 4.1 Valproic Acid 85.7 Medications Medications Current Medications Acetaminophen (Acetaminophen 325 Mg Tablet) 650 mg PO Q6H PRN PRN Reason: Headache/Pain, Scale 1-10 Last Admin: 12/27/24 20:51 Dose: 650 mg Al Hydroxide/Mg Hydroxide (Magnesium Hydrox/Alum Hydrox 30 Ml Oral.Susp) 30 ml PO Q6H PRN PRN Reason: Heartburn/Nausea Cariprazine (Cariprazine Hcl 1.5 Mg Capsule) 1.5 mg PO DAILY [facility] Last Admin: 12/31/24 11:52 Dose: 1.5 mg Clonazepam (Clonazepam 1 Mg Tablet) 2 mg PO DAILY PRN PRN Reason: anxiety Last Admin: 12/31/24 05:24 Dose: 2 mg Clonidine HCl (Clonidine Hcl 0.1 Mg Tablet) 0.1 mg PO TID [facility]; Protocol Last Admin: 12/31/24 11:52 Dose: 0.1 mg Divalproex Sodium (Divalproex Sodium Er 500 Mg Tab.Er.24h) 500 mg PO BEDTIME [facility] Hydrocortisone (Hydrocortisone 1 % Ointment 28.35 Gm Tube) 1 appl TOPICAL DAILY PRN; Protocol PRN Reason: itching Last Admin: 12/29/24 20:31 Dose: 1 appl Hydroxyzine HCl (Hydroxyzine Hcl 50 Mg Tablet) 50 mg PO Q6H PRN PRN Reason: mild anxiety Last Admin: 12/30/24 15:24 Dose: 50 mg Ibuprofen (Ibuprofen 600 Mg Tablet) 600 mg PO Q6H PRN PRN Reason: Pain, Moderate(Pain Scale 4-6) Last Admin: 12/30/24 20:27 Dose: 600 mg Lidocaine (Lidocaine 4 % Patch Adh..Patch) 1 patch TRANSDERMA DAILY PRN; Protocol PRN Reason: Pain, Mild (Pain Scale 1-3) Last Admin: 12/31/24 08:24 Dose: 1 patch Magnesium Hydroxide (Milk Of Magnesia 30 Ml Oral.Susp) 30 ml PO DAILY PRN PRN Reason: Constipation Metoprolol Succinate (Metoprolol Succinate Er 25 Mg Tab.Er.24h) 25 mg PO BID [facility]; Protocol Last Admin: 12/31/24 08:25 Dose: 25 mg Naproxen (Naproxen 500 Mg Tablet) 500 mg PO Q12H PRN PRN Reason: Pain, Severe (Pain Scale 7-10) Last Admin: 12/31/24 08:25 Dose: 500 mg Quetiapine Fumarate (Quetiapine Fumarate 25 Mg Tablet) 75 mg PO TID PRN PRN Reason: severe anxiety Last Admin: 12/31/24 08:25 Dose: 75 mg Trazodone HCl (Trazodone Hcl 100 Mg Tablet) 100 mg PO BEDTIME PRN PRN Reason: Insomnia Last Admin: 12/30/24 20:27 Dose: 100 mg Allergies Allergies Allergy/AdvReac Type Severity Reaction Status Date / Time Beta-Blockers Allergy Hives Verified 12/21/24 12:34 (Beta-Adrenergic Bloc cephalexin [From Keflex] Allergy Vomiting Verified 12/21/24 12:34 Cephalosporins Allergy Nausea and Verified 12/21/24 12:34 Vomiting erythromycin base Allergy Hives Verified 12/21/24 12:34 peanut Allergy Unknown Verified 12/21/24 14:42 Penicillins [PCN] Allergy Nausea and Verified 12/21/24 12:34 Vomiting shellfish derived Allergy Anaphylaxis Verified 12/21/24 12:34 strawberry Allergy Anaphylaxis Verified 12/21/24 12:34 tomato Allergy Anaphylaxis Verified 12/21/24 12:34 verapamil Allergy Hives Verified 12/21/24 12:34 latex AdvReac Swelling Verified 12/21/24 12:34 Assessment & Plan Assessment & Plan (1) Bipolar disorder: Status: Acute Code(s): F31.9 - Bipolar disorder, unspecified (2) Posttraumatic stress disorder: Status: Acute Code(s): F43.10 - Post-traumatic stress disorder, unspecified Plan Patient is a 44-year-old female with history of bipolar disorder, and PTSD who self presented to ER due to suicidal ideation secondary to increased depression. Plan: CV 15 minute safety checks Continue home medications Obtain collateral Start: Depakote ER 500mg PO bedtime Encourage groups Discharge planning 12/23: Active on unit, social with peers. attending groups. Patient continues to report feeling depressed but states she is trying to remain hopeful. Patient stated, I'm hoping that the Depakote will help with my mood. I slept great last night . She reports always feeling suicidal but the idea of doing it to my kids, stops me . denies HI/VH/AH. denies side effects from starting depakote. continue current tx plan 12/24: Patient continues to report feeling depressed; reports the acuity of the unit is bothersome. attending groups. denies HI/VH/AH. passive suicidal ideation. Valproic acid level to be drawn tomorrow morning; adjust dose according to level. 12/25: Increase Depakote to 500 mg BID. continue current management and treatment plan. 12/26: Increase Seroquel PRN to 50 mg. 12/27: Active on unit, attending groups. Patient continues to report anxiety and depression; pt stated, i feel like my thoughts are still racing. I still don't feel much of a difference with the increase . labs to be drawn this week. denies HI/VH/AH. passive suicidal ideation. per nursing, slept 6 hours. continue current tx plan 12/28: Active on unit, social with peers. attending groups. Patient reports her depression is lower today; states she is trying to be positive . denies HI/VH/AH. passive suicidal ideation. labs to be drawn today. Will adjust dose of Depakote once receive lab results. Trazodone increased to 100mg PO bedtime PRN Seroquel increased to 75mg PO TID PRN Hydroxyzine increased to 50mg PO Q6HR PRN DC Zyprexa; pt reports it is not helpful. 12/29: Patient continues to report feeling depressed with some improvement. Valproic acid level 109.1 on 12/28/24; Depakote level decreased to 750mg PO bedtime; pt aware. future oriented. Per nursing, slept 5 hours. Patient would like to discharge to be able to celebrate her wedding anniversary this weekend. Discussed possibly discharging on Friday with plans to attend PHP. 12/30: Active on unit, social with peers. attending groups. Patient reports feeling anxious about returning home; pt stated, I'm always anxious. I've been anxious for 35 years. I'm worried about cutting because I like doing it.It's a way for me to cope. Passive SI. denies HI/VH/AH. Patient reports she will try other coping skills when at home. Patient reports she plans on following up with her outpatient providers and attending PHP after discharge. 12/31: taper and DC VPA due to elevated ammonia. start vraylar 1.5 daily for depression/mood and clonidine 0.1 TID for anxiety. Reason for continued inpatient stay Substantial Risk for: inability to function Time Spent With Patient Time: Total time managing care of this patient today _35___ minutes.
[2024-12-31] MEDS: hydrOXYzine HCL 50 MG TABLET PO (20:09)
[2024-12-31] MEDS: Divalproex Sodium ER 500 MG TAB.ER.24H PO (20:10)
[2024-12-31] MEDS: traZODone HCL 100 MG TABLET PO ×2 (20:10→21:20)
[2024-12-31] MEDS: Magnesium Hydrox/Alum Hydrox 30 ML ORAL.SUSP PO (21:19)
[2025-01-01] VITALS (8 sets, daily range): BP systolic 101–118; BP diastolic 51–66; PULSE 86–98; RESP 14–16; TEMP 36.3–36.8; O2SAT 96–97
[2025-01-01] MEDS: clonazePAM 1 MG TABLET 2 MG PO (06:10)
[2025-01-01] MEDS: cloNIDine HCL 0.1 MG TABLET PO ×3 (08:13→20:15)
[2025-01-01] MEDS: Metoprolol Succinate ER 25 MG TAB.ER.24H PO ×2 (08:14→20:15)
[2025-01-01] MEDS: Cariprazine HCl 1.5 MG CAPSULE PO (08:14)
[2025-01-01] MEDS: QUEtiapine Fumarate 25 MG TABLET 75 MG PO ×3 (08:19→22:54)
[2025-01-01] MEDS: hydrOXYzine HCL 50 MG TABLET PO ×2 (11:46→20:15)
--- NOTE | 2025-01-01 19:39 | P.PNPSI_ITS ---
Subjective Subjective Date of Service: 01/01/25 Reason For Visit: Decompensation Interim History: slept better, no nightmares. appears overly affected by klonopin, agrees to change from 2 mg daily PRN to 1 mg BID PRN. per staff, using seroquel PRNs. slept 8 hours - feels sleep is improving. Mental Status Exam Mental Status Exam Narrative: Pt is alert and oriented; behavior is cooperative and calm; dressed in casual attire; mood is anxious; eye contact appropriate; Speech is normal rate, volume and not pressured; thought process is organized; Thought content is on tx, future oriented; no SI/SIBI/HI/AVH expressed. Diagnostics Vital Signs (24Hr): Vital Signs - 24 hr 12/31/24 20:00 12/31/24 20:10 12/31/24 20:11 Temperature 97.8 F Pulse Rate 98 98 Respiratory Rate 16 Blood Pressure 105/57 L 105/57 L 105/57 L Pulse Oximetry 97 Oxygen Delivery Method Room Air 01/01/25 07:58 01/01/25 08:11 01/01/25 08:13 Temperature 97.6 F Pulse Rate 86 89 Respiratory Rate 16 Blood Pressure 111/58 L 101/66 101/66 Pulse Oximetry 96 Oxygen Delivery Method Room Air 01/01/25 08:14 01/01/25 09:57 01/01/25 14:20 Temperature 97.6 F 98.2 F Pulse Rate 89 98 93 Respiratory Rate 16 16 Blood Pressure 101/66 104/51 L 112/64 Pulse Oximetry 96 97 Oxygen Delivery Method Room Air Room Air BMI result Body Mass Index 29.7 Labs 12/21/24 13:12 12/23/24 07:48 Labs: Laboratory Results - last 48 hr 12/31/24 12/31/24 08:04 08:05 Total Bilirubin 0.2 Direct Bilirubin < 0.2 AST 26 ALT 20 Alkaline Phosphatase 71 Ammonia 65 H Total Protein 7.0 Albumin 4.1 Valproic Acid 85.7 Medications Medications Current Medications Acetaminophen (Acetaminophen 325 Mg Tablet) 650 mg PO Q6H PRN PRN Reason: Headache/Pain, Scale 1-10 Last Admin: 12/27/24 20:51 Dose: 650 mg Al Hydroxide/Mg Hydroxide (Magnesium Hydrox/Alum Hydrox 30 Ml Oral.Susp) 30 ml PO Q6H PRN PRN Reason: Heartburn/Nausea Last Admin: 12/31/24 21:19 Dose: 30 ml Cariprazine (Cariprazine Hcl 1.5 Mg Capsule) 1.5 mg PO DAILY [facility] Last Admin: 01/01/25 08:14 Dose: 1.5 mg Clonazepam (Clonazepam 1 Mg Tablet) 1 mg PO BID PRN PRN Reason: anxiety Clonidine HCl (Clonidine Hcl 0.1 Mg Tablet) 0.1 mg PO TID [facility]; Protocol Last Admin: 01/01/25 14:24 Dose: 0.1 mg Divalproex Sodium (Divalproex Sodium Er 250 Mg Tab.Er.24h) 250 mg PO BEDTIME [facility] Hydrocortisone (Hydrocortisone 1 % Ointment 28.35 Gm Tube) 1 appl TOPICAL DAILY PRN; Protocol PRN Reason: itching Last Admin: 12/29/24 20:31 Dose: 1 appl Hydroxyzine HCl (Hydroxyzine Hcl 50 Mg Tablet) 50 mg PO Q6H PRN PRN Reason: mild anxiety Last Admin: 01/01/25 11:46 Dose: 50 mg Ibuprofen (Ibuprofen 600 Mg Tablet) 600 mg PO Q6H PRN PRN Reason: Pain, Moderate(Pain Scale 4-6) Last Admin: 12/30/24 20:27 Dose: 600 mg Lidocaine (Lidocaine 4 % Patch Adh..Patch) 1 patch TRANSDERMA DAILY PRN; Protocol PRN Reason: Pain, Mild (Pain Scale 1-3) Last Admin: 12/31/24 08:24 Dose: 1 patch Magnesium Hydroxide (Milk Of Magnesia 30 Ml Oral.Susp) 30 ml PO DAILY PRN PRN Reason: Constipation Metoprolol Succinate (Metoprolol Succinate Er 25 Mg Tab.Er.24h) 25 mg PO BID [facility]; Protocol Last Admin: 01/01/25 08:14 Dose: 25 mg Naproxen (Naproxen 500 Mg Tablet) 500 mg PO Q12H PRN PRN Reason: Pain, Severe (Pain Scale 7-10) Last Admin: 12/31/24 08:25 Dose: 500 mg Quetiapine Fumarate (Quetiapine Fumarate 25 Mg Tablet) 75 mg PO TID PRN PRN Reason: severe anxiety Last Admin: 01/01/25 17:01 Dose: 75 mg Trazodone HCl (Trazodone Hcl 100 Mg Tablet) 100 mg PO BEDTIME PRN PRN Reason: Insomnia Last Admin: 12/31/24 21:20 Dose: 100 mg Allergies Allergies Allergy/AdvReac Type Severity Reaction Status Date / Time Beta-Blockers Allergy Hives Verified 12/21/24 12:34 (Beta-Adrenergic Bloc cephalexin [From Keflex] Allergy Vomiting Verified 12/21/24 12:34 Cephalosporins Allergy Nausea and Verified 12/21/24 12:34 Vomiting erythromycin base Allergy Hives Verified 12/21/24 12:34 peanut Allergy Unknown Verified 12/21/24 14:42 Penicillins [PCN] Allergy Nausea and Verified 12/21/24 12:34 Vomiting shellfish derived Allergy Anaphylaxis Verified 12/21/24 12:34 strawberry Allergy Anaphylaxis Verified 12/21/24 12:34 tomato Allergy Anaphylaxis Verified 12/21/24 12:34 verapamil Allergy Hives Verified 12/21/24 12:34 latex AdvReac Swelling Verified 12/21/24 12:34 Assessment & Plan Assessment & Plan (1) Bipolar disorder: Status: Acute Code(s): F31.9 - Bipolar disorder, unspecified (2) Posttraumatic stress disorder: Status: Acute Code(s): F43.10 - Post-traumatic stress disorder, unspecified Plan Patient is a 44-year-old female with history of bipolar disorder, and PTSD who self presented to ER due to suicidal ideation secondary to increased depression. Plan: CV 15 minute safety checks Continue home medications Obtain collateral Start: Depakote ER 500mg PO bedtime Encourage groups Discharge planning 12/23: Active on unit, social with peers. attending groups. Patient continues to report feeling depressed but states she is trying to remain hopeful. Patient stated, I'm hoping that the Depakote will help with my mood. I slept great last night . She reports always feeling suicidal but the idea of doing it to my kids, stops me . denies HI/VH/AH. denies side effects from starting depakote. continue current tx plan 12/24: Patient continues to report feeling depressed; reports the acuity of the unit is bothersome. attending groups. denies HI/VH/AH. passive suicidal ideation. Valproic acid level to be drawn tomorrow morning; adjust dose according to level. 12/25: Increase Depakote to 500 mg BID. continue current management and treatment plan. 12/26: Increase Seroquel PRN to 50 mg. 12/27: Active on unit, attending groups. Patient continues to report anxiety and depression; pt stated, i feel like my thoughts are still racing. I still don't feel much of a difference with the increase . labs to be drawn this week. denies HI/VH/AH. passive suicidal ideation. per nursing, slept 6 hours. continue current tx plan 12/28: Active on unit, social with peers. attending groups. Patient reports her depression is lower today; states she is trying to be positive . denies HI/VH/AH. passive suicidal ideation. labs to be drawn today. Will adjust dose of Depakote once receive lab results. Trazodone increased to 100mg PO bedtime PRN Seroquel increased to 75mg PO TID PRN Hydroxyzine increased to 50mg PO Q6HR PRN DC Zyprexa; pt reports it is not helpful. 12/29: Patient continues to report feeling depressed with some improvement. Valproic acid level 109.1 on 12/28/24; Depakote level decreased to 750mg PO bedtime; pt aware. future oriented. Per nursing, slept 5 hours. Patient would like to discharge to be able to celebrate her wed anniversary this weekend. Discussed possibly discharging on Friday with plans to attend PHP. 12/30: Active on unit, social with peers. attending groups. Patient reports feeling anxious about returning home; pt stated, I'm always anxious. I've been anxious for 35 years. I'm worried about cutting because I like doing it.It's a way for me to cope. Passive SI. denies HI/VH/AH. Patient reports she will try other coping skills when at home. Patient reports she plans on following up with her outpatient providers and attending PHP after discharge. 12/31: taper and DC VPA due to elevated ammonia. start vraylar 1.5 daily for depression/mood and clonidine 0.1 TID for anxiety. 53: decrease VPA to 250 mg tonight. slept better last night. continue current mgmt. Reason for continued inpatient stay Substantial Risk for: inability to function and rapid decompensation Time Spent With Patient Time: Total time managing care of this patient today ____ minutes.
[2025-01-01] MEDS: clonazePAM 1 MG TABLET PO (19:55)
[2025-01-01] MEDS: NaPROXEN 500 MG TABLET PO (20:11)
[2025-01-01] MEDS: Divalproex Sodium ER 250 MG TAB.ER.24H PO (20:16)
[2025-01-01] MEDS: traZODone HCL 100 MG TABLET PO ×2 (20:16→22:02)
[2025-01-01] MEDS: Magnesium Hydrox/Alum Hydrox 30 ML ORAL.SUSP PO (22:01)
[2025-01-02] MEDS: clonazePAM 1 MG TABLET PO ×2 (07:49→19:46)
[2025-01-02] MEDS: Acetaminophen 325 MG TABLET 650 MG PO (07:49)
[2025-01-02 07:51] VITALS: BP 101/56; PULSE 82; RESP 16; TEMP 36.6; O2SAT 93
[2025-01-02 08:23] VITALS: BP 114/60; PULSE 93
[2025-01-02] MEDS: Metoprolol Succinate ER 25 MG TAB.ER.24H PO ×2 (08:28→21:10)
[2025-01-02] MEDS: Cariprazine HCl 1.5 MG CAPSULE PO (08:28)
[2025-01-02] MEDS: cloNIDine HCL 0.1 MG TABLET PO ×2 (08:28→14:52)
[2025-01-02] MEDS: QUEtiapine Fumarate 25 MG TABLET 75 MG PO ×2 (12:40→21:11)
[2025-01-02 14:44] VITALS: BP 110/60; PULSE 98; RESP 16; TEMP 36.4; O2SAT 97
[2025-01-02] MEDS: Ibuprofen 600 MG TABLET PO (14:51)
[2025-01-02] MEDS: hydrOXYzine HCL 50 MG TABLET PO (16:25)
--- NOTE | 2025-01-02 16:27 | P.PNPSI_ITS ---
Subjective Subjective Date of Service: 01/02/25 Reason For Visit: Decompensation Interim History: c/o poor sleep, agreeable to increase HS dose of clonidine. does not want to DC tomorrow, asking for a day to prepare herself. redirected to d/w her attending in the morning. informd as elevated ammonia was due to VPA, and VPA is being DCed, there is no need for further lab draw. per staff, asking about labs. increased anxiety yesterday. +SI. no plan. slept 8 hours. Mental Status Exam Mental Status Exam Narrative: Pt is alert and oriented; behavior is cooperative and calm; dressed in casual attire; mood is anxious; eye contact appropriate; Speech is normal rate, volume and not pressured; thought process is organized; Thought content is on tx, future oriented; no SI/SIBI/HI/AVH expressed. Diagnostics Vital Signs (24Hr): Vital Signs - 24 hr 01/01/25 20:00 01/01/25 20:15 01/01/25 20:15 Temperature 97.3 F Pulse Rate 94 91 Respiratory Rate 14 Blood Pressure 118/59 L 118/59 L 118/59 L Pulse Oximetry 96 Oxygen Delivery Method Room Air 01/02/25 07:51 01/02/25 08:23 01/02/25 14:44 Temperature 97.9 F 97.6 F Pulse Rate 82 93 98 Respiratory Rate 16 16 Blood Pressure 101/56 L 114/60 110/60 Pulse Oximetry 93 97 Oxygen Delivery Method Room Air Room Air BMI result Body Mass Index 29.7 Labs 12/21/24 13:12 12/23/24 07:48 Medications Medications Current Medications Acetaminophen (Acetaminophen 325 Mg Tablet) 650 mg PO Q6H PRN PRN Reason: Headache/Pain, Scale 1-10 Last Admin: 01/02/25 07:49 Dose: 650 mg Al Hydroxide/Mg Hydroxide (Magnesium Hydrox/Alum Hydrox 30 Ml Oral.Susp) 30 ml PO Q6H PRN PRN Reason: Heartburn/Nausea Last Admin: 01/01/25 22:01 Dose: 30 ml Cariprazine (Cariprazine Hcl 1.5 Mg Capsule) 1.5 mg PO DAILY [facility] Last Admin: 01/02/25 08:28 Dose: 1.5 mg Clonazepam (Clonazepam 1 Mg Tablet) 1 mg PO BID PRN PRN Reason: anxiety Last Admin: 01/02/25 07:49 Dose: 1 mg Clonidine HCl (Clonidine Hcl 0.1 Mg Tablet) 0.1 mg PO BID@0900,1500 [facility]; Protocol Last Admin: 01/02/25 14:52 Dose: 0.1 mg Clonidine HCl (Clonidine Hcl 0.2 Mg Tablet) 0.2 mg PO BEDTIME [facility]; Protocol Divalproex Sodium (Divalproex Sodium Er 250 Mg Tab.Er.24h) 250 mg PO BEDTIME [facility] Stop: 01/02/25 21:01 Last Admin: 01/01/25 20:16 Dose: 250 mg Hydrocortisone (Hydrocortisone 1 % Ointment 28.35 Gm Tube) 1 appl TOPICAL DAILY PRN; Protocol PRN Reason: itching Last Admin: 12/29/24 20:31 Dose: 1 appl Hydroxyzine HCl (Hydroxyzine Hcl 50 Mg Tablet) 50 mg PO Q6H PRN PRN Reason: mild anxiety Last Admin: 01/02/25 16:25 Dose: 50 mg Ibuprofen (Ibuprofen 600 Mg Tablet) 600 mg PO Q6H PRN PRN Reason: Pain, Moderate(Pain Scale 4-6) Last Admin: 01/02/25 14:51 Dose: 600 mg Lidocaine (Lidocaine 4 % Patch Adh..Patch) 1 patch TRANSDERMA DAILY PRN; Protocol PRN Reason: Pain, Mild (Pain Scale 1-3) Last Admin: 12/31/24 08:24 Dose: 1 patch Magnesium Hydroxide (Milk Of Magnesia 30 Ml Oral.Susp) 30 ml PO DAILY PRN PRN Reason: Constipation Metoprolol Succinate (Metoprolol Succinate Er 25 Mg Tab.Er.24h) 25 mg PO BID [facility]; Protocol Last Admin: 01/02/25 08:28 Dose: 25 mg Naproxen (Naproxen 500 Mg Tablet) 500 mg PO Q12H PRN PRN Reason: Pain, Severe (Pain Scale 7-10) Last Admin: 01/01/25 20:11 Dose: 500 mg Quetiapine Fumarate (Quetiapine Fumarate 25 Mg Tablet) 75 mg PO TID PRN PRN Reason: severe anxiety Last Admin: 01/02/25 12:40 Dose: 75 mg Trazodone HCl (Trazodone Hcl 100 Mg Tablet) 100 mg PO BEDTIME PRN PRN Reason: Insomnia Last Admin: 01/01/25 22:02 Dose: 100 mg Allergies Allergies Allergy/AdvReac Type Severity Reaction Status Date / Time Beta-Blockers Allergy Hives Verified 12/21/24 12:34 (Beta-Adrenergic Bloc cephalexin [From Keflex] Allergy Vomiting Verified 12/21/24 12:34 Cephalosporins Allergy Nausea and Verified 12/21/24 12:34 Vomiting erythromycin base Allergy Hives Verified 12/21/24 12:34 peanut Allergy Unknown Verified 12/21/24 14:42 Penicillins [PCN] Allergy Nausea and Verified 12/21/24 12:34 Vomiting shellfish derived Allergy Anaphylaxis Verified 12/21/24 12:34 strawberry Allergy Anaphylaxis Verified 12/21/24 12:34 tomato Allergy Anaphylaxis Verified 12/21/24 12:34 verapamil Allergy Hives Verified 12/21/24 12:34 latex AdvReac Swelling Verified 12/21/24 12:34 Assessment & Plan Assessment & Plan (1) Bipolar disorder: Status: Acute Code(s): F31.9 - Bipolar disorder, unspecified (2) Posttraumatic stress disorder: Status: Acute Code(s): F43.10 - Post-traumatic stress disorder, unspecified Plan Patient is a 44-year-old female with history of bipolar disorder, and PTSD who self presented to ER due to suicidal ideation secondary to increased depression. Plan: CV 15 minute safety checks Continue home medications Obtain collateral Start: Depakote ER 500mg PO bedtime Encourage groups Discharge planning 12/23: Active on unit, social with peers. attending groups. Patient continues to report feeling depressed but states she is trying to remain hopeful. Patient stated, I'm hoping that the Depakote will help with my mood. I slept great last night . She reports always feeling suicidal but the idea of doing it to my kids, stops me . denies HI/VH/AH. denies side effects from starting depakote. continue current tx plan 12/24: Patient continues to report feeling depressed; reports the acuity of the unit is bothersome. attending groups. denies HI/VH/AH. passive suicidal ideation. Valproic acid level to be drawn tomorrow morning; adjust dose according to level. 12/25: Increase Depakote to 500 mg BID. continue current management and treatment plan. 12/26: Increase Seroquel PRN to 50 mg. 12/27: Active on unit, attending groups. Patient continues to report anxiety and depression; pt stated, i feel like my thoughts are still racing. I still don't feel much of a difference with the increase . labs to be drawn this week. denies HI/VH/AH. passive suicidal ideation. per nursing, slept 6 hours. continue current tx plan 12/28: Active on unit, social with peers. attending groups. Patient reports her depression is lower today; states she is trying to be positive . denies HI/VH/AH. passive suicidal ideation. labs to be drawn today. Will adjust dose of Depakote once receive lab results. Trazodone increased to 100mg PO bedtime PRN Seroquel increased to 75mg PO TID PRN Hydroxyzine increased to 50mg PO Q6HR PRN DC Zyprexa; pt reports it is not helpful. 12/29: Patient continues to report feeling depressed with some improvement. Valproic acid level 109.1 on 12/28/24; Depakote level decreased to 750mg PO bedtime; pt aware. future oriented. Per nursing, slept 5 hours. Patient would like to discharge to be able to celebrate her anniversary this weekend. Discussed possibly discharging on Friday with plans to attend PHP. 12/30: Active on unit, social with peers. attending groups. Patient reports feeling anxious about returning home; pt stated, I'm always anxious. I've been anxious for 35 years. I'm worried about cutting because I like doing it.It's a way for me to cope. Passive SI. denies HI/VH/AH. Patient reports she will try other coping skills when at home. Patient reports she plans on following up with her outpatient providers and attending PHP after discharge. 52: taper and DC VPA due to elevated ammonia. start vraylar 1.5 daily for depression/mood and clonidine 0.1 TID for anxiety. 3: decrease VPA to 250 mg tonight. slept better last night. continue current mgmt. 01/02: DC VPA after tonight's dose. c/o poor sleep. change clonidine 0.1 TID to 0.1/0.1/0.2. informed DC is planned for tomorrow; pt does not want to DC tomorrow and is attempting to bargain for friday discharge. redirected to discuss with attending tomorrow. Reason for continued inpatient stay Substantial Risk for: rapid decompensation Time Spent With Patient Time: Total time managing care of this patient today ____ minutes.
[2025-01-02 19:57] VITALS: BP 101/59; PULSE 94; RESP 16; TEMP 36.4; O2SAT 97
[2025-01-02 21:10] VITALS: BP 120/69; PULSE 92
[2025-01-02] MEDS: Divalproex Sodium ER 250 MG TAB.ER.24H PO (21:10)
[2025-01-02] MEDS: cloNIDine HCL 0.2 MG TABLET PO (21:10)
[2025-01-02] MEDS: traZODone HCL 100 MG TABLET PO (21:10)
[2025-01-03] MEDS: clonazePAM 1 MG TABLET PO (06:41)
[2025-01-03 07:42] VITALS: BP 99/56; PULSE 86; RESP 16; TEMP 36.4; O2SAT 95
[2025-01-03 08:08] VITALS: BP 99/61; PULSE 78
[2025-01-03] MEDS: Metoprolol Succinate ER 25 MG TAB.ER.24H PO (08:30)
[2025-01-03] MEDS: cloNIDine HCL 0.1 MG TABLET PO (08:30)
[2025-01-03] MEDS: Cariprazine HCl 1.5 MG CAPSULE PO (08:30)
[2025-01-03] MEDS: QUEtiapine Fumarate 25 MG TABLET 75 MG PO (08:31)
--- NOTE | 2025-01-03 11:06 | P.DS_ITS ---
DS: Providers Provider Date of Service: 01/03/25 Date of admission: 12/22/24 12:25 Date of discharge: 01/03/25 Primary care physician: Kwasi Best MD Admitting clinician: Nisreen Lr Attending physician on admission: Roshan Garner Attending physician on discharge: Roshan Garner Discharging clinician: Nisreen Lr DS: Diagnosis Discharge Diagnosis (1) Bipolar disorder: Status: Acute (2) Posttraumatic stress disorder: Status: Acute DS: Medications Discharge Medications Home Medications: Home Medications ?Medication ?Instructions ?Recorded ?Confirmed metoprolol succinate 25 mg 25 mg PO DAILY 12/21/24 12/21/24 tablet,extended release 24 hr Previous Rx's ?Medication ?Instructions ?Recorded cariprazine 1.5 mg capsule 1.5 mg PO DAILY 30 days #30 caps 01/03/25 (Vraylar) clonazepam 1 mg tablet 1 mg PO BID PRN anxiety 30 days 01/03/25 #60 tabs clonidine HCl 0.1 mg tablet 0.1 mg PO BID@0900,1500 30 days 01/03/25 #60 tabs clonidine HCl 0.2 mg tablet 0.2 mg PO BEDTIME 30 days #30 tabs 01/03/25 quetiapine 25 mg tablet 75 mg (3 x 25 mg) PO TID PRN 01/03/25 severe anxiety 7 days #21 tabs trazodone 100 mg tablet 100 mg PO BEDTIME PRN Insomnia 30 01/03/25 days #30 tabs Mental Status Exam Mental Status Exam Narrative: Pt is alert and oriented; behavior is cooperative and calm; dressed in casual attire; mood is described as okay ; eye contact appropriate; Speech is normal rate, volume and not pressured; thought process is organized; Thought content is on discharge, future oriented; denies HI/VH/AH. Patient reports chronic suicidal ideation; denies intent/plan at this time. Data Data Completed and Pending Completed studies during hospitalization [Text1]: 12/28/24 12/31/24 12/31/24 18:48 08:04 08:05 Total Bilirubin 0.3 0.2 Direct Bilirubin 0.1 < 0.2 AST 29 26 ALT 26 20 Alkaline Phosphatase 73 71 Ammonia 42 65 H Total Protein 7.3 7.0 Albumin 4.3 4.1 Valproic Acid 109.1 H 85.7 DS: Summary Hospital Course Hospital Course: Patient is a 44-year-old female with history of bipolar disorder, and PTSD who self presented to ER due to suicidal ideation secondary to increased depression. Per crisis report, patient reports increased depression and hopelessness. Tearful. Patient reports suicidal ideation with plan to overdose on medications and cut her wrists. Patient reports having a vagus nerve stimulator. Patient stated, I want to all of the time. I have to wake up and continue feeling this way . denies HI/VH/AH. She reports poor sleep and appetite. Patient has outpatient psychiatric providers. History of multiple inpatient psychiatric hospitalizations. Denies substance use. U tox negative. During admission assessment, patient presents alert and oriented x3. Calm and cooperative. Tearful. Patient reports feeling depressed; patient stated, my trauma keeps replaying in my head. It never stops. I listen to music and watch movies to drowned it out. My dad is a narcissistic asshole and makes me feel like a piece of shit and my mom is dying of myasthenia gravis . Patient reports she always feels suicidal; patient stated, I don't have any intent on acting on it. I'm just hoping that there has to be a combination of meds that can work for me . Patient reports she has tried multiple medications, ECT, TMS and ketamine . She currently has a vagus nerve stimulator implanted and reports she began using it a month ago. Patient denies HI/VH/AH. Plan: CV 15 minute safety checks Continue home medications Obtain collateral Start: Depakote ER 500mg PO bedtime Encourage groups Discharge planning Active on unit, social with peers. attending groups. Patient continues to report feeling depressed but states she is trying to remain hopeful. Patient stated, I'm hoping that the Depakote will help with my mood. I slept great last night . She reports always feeling suicidal but the idea of doing it to my kids, stops me . denies HI/VH/AH. denies side effects from starting depakote. continue current tx plan Patient continues to report feeling depressed; reports the acuity of the unit is bothersome. attending groups. denies HI/VH/AH. passive suicidal ideation. Valproic acid level to be drawn tomorrow morning; adjust dose according to level. Increase Depakote to 500 mg BID. continue current management and treatment plan. Increase Seroquel PRN to 50 mg. Active on unit, attending groups. Patient continues to report anxiety and depression; pt stated, i feel like my thoughts are still racing. I still don't feel much of a difference with the increase . labs to be drawn this week. denies HI/VH/AH. passive suicidal ideation. per nursing, slept 6 hours. continue current tx plan Active on unit, social with peers. attending groups. Patient reports her depression is lower today; states she is trying to be positive . denies HI/VH/AH. passive suicidal ideation. labs to be drawn today. Will adjust dose of Depakote once receive lab results. Trazodone increased to 100mg PO bedtime PRN Seroquel increased to 75mg PO TID PRN Hydroxyzine increased to 50mg PO Q6HR PRN DC Zyprexa; pt reports it is not helpful. Patient continues to report feeling depressed with some improvement. Valproic acid level 109.1 on 12/28/24; Depakote level decreased to 750mg PO bedtime; pt aware. future oriented. Per nursing, slept 5 hours. Patient would like to discharge to be able to celebrate her wed anniversary this weekend. Discussed possibly discharging on Friday with plans to attend PHP. Active on unit, social with peers. attending groups. Patient reports feeling anxious about returning home; pt stated, I'm always anxious. I've been anxious for 35 years. I'm worried about cutting because I like doing it.It's a way for me to cope. Passive SI. denies HI/VH/AH. Patient reports she will try other coping skills when at home. Patient reports she plans on following up with her outpatient providers and attending PHP after discharge. taper and DC VPA due to elevated ammonia. start vraylar 1.5 daily for depression/mood and clonidine 0.1 TID for anxiety. decrease VPA to 250 mg tonight. slept better last night. continue current mgmt. DC VPA after tonight's dose. c/o poor sleep. change clonidine 0.1 TID to 0.1/0.1/0.2. informed DC is planned for tomorrow; pt does not want to DC tomorrow and is attempting to bargain for arthur discharge. redirected to discuss with attending tomorrow. Patient reports feeling okay ; having some thoughts of cutting d/t feeling a nxious. Future oriented; discussed plans for going shopping with after discharge for anniversary. denies HI/VH/AH. Chronic SI with no plan or intent. Patient reports she plans on continuing to see her therapist twice a week and following up with her outpatient psychiatrist when discharged. Plan to follow up with [facility]. Status at Discharge Cognitive/behavioral status at discharge: Patient has insight and demonstrates good judgment in terms of wanting to pursue treatment. Patient has a safety plan that includes presenting to the closest ER or calling 911 if feeling unsafe. Functional status at discharge: independent ambulation Overall status at discharge: patient is back to baseline Time Spent with Patient Time attestation: Total time managing care of this patient today _20___ minutes. Time spent: Less than 30 minutes Discharge Plan Discharge Anticipated Discharge Date/Time: 01/03/25 11:06 Patient Disposition: Home, Self-Care Discharge Diagnosis: Bipolar d/o, PTSD [place] [facility] [place] [Other] - 01/20/25 11:00 am (You are on the cancellation list, Sharda will call you if a sooner appointment becomes available ) Therapy- Rizwana Oconnell [Other] - 1 Week Psychiatrist-Samara Mcdonald [Other] - 1 Week Kwasi Best MD [Primary Care Provider] - (01-03-25 Please contact your primary care provider within 7-10 days of discharge to schedule your follow up appt. No release on file.) Discharge Medications: New Vraylar 1.5 mg Capsule 1.5 mg PO DAILY 30 Days Qty: 30 0RF clonazepam 1 mg Tablet 1 mg PO BID PRN (Reason: anxiety) 30 Days Qty: 60 0RF trazodone 100 mg Tablet 100 mg PO BEDTIME PRN (Reason: Insomnia) 30 Days Qty: 30 0RF quetiapine 25 mg Tablet 75 mg PO TID PRN (Reason: severe anxiety) 7 Days Qty: 21 0RF clonidine HCl 0.2 mg Tablet 0.2 mg PO BEDTIME 30 Days Qty: 30 0RF Protocol: Hold for SBP< HOLD for SBP < : 90 clonidine HCl 0.1 mg Tablet 0.1 mg PO BID@0900,1500 30 Days Qty: 60 0RF Protocol: Hold for SBP< HOLD for SBP < : 90 Continued metoprolol succinate 25 mg tablet extended release 24 hr 25 mg PO DAILY Discontinued clonazepam 1 mg tablet 2 mg PO DAILY PRN (Reason: anxiety) Discharge Orders: Discharge Order (Routine); Ordered 01/03/25 Ordered By: Nisreen Lr Diet: Regular diet Activity on Discharge: As tolerated Stand Alone Forms: Patient Portal Discharge page, Community Support Print Language: Vincentian Care Plan Goals: Maintain mood and safe behaviors Take medications as prescribed Practice coping skills Continue with outpatient providers and reach out to them as needed Health Concerns: Mood stability and behaviors Follow up with outpatient providers regarding monitoring labs for Depakote Plan of Treatment: Follow up with your PCP, psychiatric provider and other outpatient providers regarding above concerns Take medications as prescribed Assessment: Patient has insight and demonstrates good judgment in terms of wanting to pursue treatment. Patient has a safety plan that includes presenting to the closest ER or calling 911 if feeling unsafe. Discharge Date/Time: 01/03/25 11:25
== END 2025-01-03 11:25 | disposition home or self-care (01) | DRG 753 ==
LOC: HO.ED 12-22 10:01 → HO.PADLT16 12-22 12:25
PROVIDERS: Emergency Medicine; Physician Assistant; Admitting Provider Psychiatry & Neurology Psychiatry; Emergency Provider Emergency Medicine; PCP Internal Medicine; Responsible Provider Registered Nurse; Visit Provider Psychiatry & Neurology Psychiatry
DX: F31.9 Bipolar disorder, unspecified (principal); R45.851 Suicidal ideations; F43.10 Post-traumatic stress disorder, unspecified; Z87.891 Personal history of nicotine dependence; Z79.899 Other long term (current) drug therapy
CPT/HCPCS: 36415; 80053; 80061; 80076; 80164; 80179; 80307; 81003; 81025; 82140; 83036; 84443; 85025; 93005; 99285; S9485

== ENCOUNTER → 2024-12-22 09:23 | Outpatient (BNV) | payer OTHER, SELFPAY | PROVIDERS: Admitting Provider Psychiatry & Neurology Psychiatry; Emergency Provider Emergency Medicine; PCP Internal Medicine; Visit Provider Internal Medicine | DX: R41.82 Altered mental status, unspecified (principal) | CPT/HCPCS: 93010 ==

== ENCOUNTER → 2024-12-22 12:25 | Outpatient (BNV) | payer OTHER, SELFPAY | PROVIDERS: Admitting Provider Psychiatry & Neurology Psychiatry; Emergency Provider Emergency Medicine; PCP Internal Medicine; Visit Provider Registered Nurse | DX: F31.4 Bipolar disorder, current episode depressed, severe, without psychotic features (principal); F43.11 Post-traumatic stress disorder, acute | CPT/HCPCS: 90792; 99231; 99232 ==

== ENCOUNTER → 2025-01-21 13:30 | Outpatient (BNV) | payer OTHER, SELFPAY | PROVIDERS: Visit Provider Psychiatry & Neurology Psychiatry | DX: F33.2 Major depressive disorder, recurrent severe without psychotic features (principal); F90.9 Attention-deficit hyperactivity disorder, unspecified type; F43.10 Post-traumatic stress disorder, unspecified | CPT/HCPCS: 99204; 99213 ==

== ENCOUNTER → 2025-01-28 07:24 | Outpatient (REF) | payer OTHER, SELFPAY ==
--- NOTE | 2025-01-28 | ECG_ITS ---
Test Reason : check qtc Blood Pressure : */* mmHG Vent. Rate : 72 BPM Atrial Rate : 72 BPM P-R Int : 132 ms QRS Dur : 70 ms QT Int : 392 ms P-R-T Axes : -3 41 23 degrees QTcB Int : 429 ms Normal sinus rhythm Nonspecific ST abnormality Abnormal ECG When compared with ECG of 22-Dec-2024 09:23, No significant change was found Referred By: Janiya Arnold Electronically Signed By: TIAN ADLER MD
[2025-01-28 07:59] LABS: MANUAL DIFF FLAG NO
[2025-01-28 08:08] LABS: Ammonia 51 umol/L (13-55)
[2025-01-28 08:19] LABS: Appearance Urine Clear; Color Urine Yellow; Glucose Urine UA Negative (Negative); Leukocyte Esterase Urine Negative (Negative); Nitrite Urine Negative (Negative); PH 5.5 (5.0-9.0); Urine Blood Negative (Negative); Urine Ketones Trace mg/dL (Negative); Urine Protein Negative (Neg-Trace)
[2025-01-28 08:19] LABS: Basophils Percent Auto 0.4 % (0-2); Eosinophils Absolute Auto 0.2 X10*3/uL (0.0-0.4); Eosinophils Percent Auto 3.9 % (0-4); Hematocrit 41.1 % (37.0-47.0); Hemoglobin 13.9 g/dl (12.0-16.0); Imm Gran Abs Auto 0.02 X10*3/uL (0.00-0.03); Imm Gran Pct Auto 0.4 % (0.0-0.4); Lymphocytes Absolute Auto 2.1 X10*3/uL (1.2-4.9); Lymphocytes Percent Auto 40.5 % (20-40); Mean Corpuscular HGB Conc 33.8 g/dl (31.0-35.0); Mean Corpuscular Hemoglobin 31.3 pg (27.0-33.0); Mean Corpuscular Volume 92.6 fL (80.0-98.0); Mean Platelet Volume 10.4 fL (9.4-12.3); Monocytes Absolute Auto 0.6 X10*3/uL (0.1-1.2); Monocytes Percent Auto 10.6 % (2-11); Neutrophils Absolute Auto 2.3 x10*3/uL (2.0-8.3); Neutrophils Percent Auto 44.2 % (45-73); Platelet Count 180 X10*3/uL (160-400); Red Blood Count 4.44 X10*6/uL (4.20-5.50); Red Cell Distribution Width 12.2 % (11.0-16.0); White Blood Count 5.2 X10*3/uL (4.8-10.8)
[2025-01-28 08:31] LABS: Estimated Average Glucose 105 mg/dL; Hemoglobin A1C 127.3795 umol/L; Hemoglobin A1c % 5.3 % (<6.0); Total Hemoglobin (HGBA1C) 3703.6695 umol/L
[2025-01-28 08:54] LABS: Erythrocyte Sedimentation Rate 8 MM/HR (0-20)
[2025-01-28 08:59] LABS: Parathyroid Hormone Intact 60.7 pg/mL (8.7-77.1)
[2025-01-28 09:02] LABS: Alanine Aminotransferase 32 U/L (0-31); Alkaline Phosphatase 62 U/L (39-117); Anion Gap 13 (12-20); Aspartate Amino Transferase 22 U/L (5-31); Bilirubin Total 0.5 mg/dL (0.0-1.0); Blood Urea Nitrogen 7 mg/dL (9-16); Calcium 9.2 mg/dL (8.4-10.2); Carbon Dioxide 25 mmol/L (22-29); Chloride 107 mmol/L (96-108); Estimated Glomerular Filt Rate > 60; Glucose Fasting 103 mg/dL (60-99); Iron 129 mcg/dL (30-160); Magnesium 1.8 mg/dL (1.6-2.6); Percent Iron Saturation 52 % (15-50); Phosphorus 2.8 mg/dL (2.7-4.5); Potassium 3.8 mmol/L (3.3-5.1); Sodium 141 mmol/L (135-145); Total Iron Binding Capacity 248 mcg/dL (228-428); Total Protein 6.7 g/dL (6.5-8.0); Unsaturated Iron Binding 119 ug/dL
[2025-01-28 09:08] LABS: Rheumatoid Factor < 13.0 IU/mL (<15.0)
[2025-01-28 09:13] LABS: HBS Num1 0.42 mIU/mL (0-7.99); HBc Num1 0.13 S/CO (0.00-0.79); HBsAGNum1 0.37 S/CO (0.00-0.99); HIV AB/AG Nonreactive (Nonreactive); HIV Num 1 0.07 S/CO (0.00-0.99); Hepatitis B Core Antibody Nonreactive (Nonreactive); Hepatitis B Surface Antigen Negative (Negative); Syphilis Screen Nonreactive (Nonreactive); ~HepC Num1 0.18 S/CO (0.00-0.79); ~Hepatitis B Surface Antibody NONREACTIVE (Nonreactive); ~Hepatitis C Antibody Nonreactive (Nonreactive)
[2025-01-28 09:20] LABS: Thyroid Stimulating Hormone 1.52 uIU/mL (0.32-4.0); Vitamin D 25-OH Total 30.5 ng/mL (>30)
[2025-01-28 09:34] LABS: Folate 6.1 ng/mL (> or = 4.0); Vitamin B12 344 pg/mL (200-900)
[2025-01-28 11:21] LABS: CT PCR NOT DETECTED (Not Detect.); NG PCR NOT DETECTED (Not Detect.)
[2025-01-31 23:13] LABS: Anti DNA DS Antibody 3 IU/mL
[2025-02-01 19:38] LABS: Carnitine Esters 4 umol/L (4-13); Carnitine, Free 17 umol/L (19-48); Carnitine, Total 21 umol/L (25-58); Esterified/Free 0.24 umol/L (0.13-0.42)
[2025-02-02 06:24] LABS: Vitamin B1 10 nmol/L (8-30)
[2025-02-02 13:44] LABS: Homocysteine 6.7 umol/L (< or = 11.0)
== END ==
LOC: HO.CARD 07:24
PROVIDERS: PCP Internal Medicine; Visit Provider Psychiatry & Neurology Psychiatry
DX: F39 Unspecified mood [affective] disorder (principal); M25.50 Pain in unspecified joint
CPT/HCPCS: 80053; 81003; 81291; 82140; 82306; 82379; 82607; 82746; 83036; 83090; 83540; 83735; 83970; 84100; 84425; 84439; 84443; 85025; 85652; 86038; 86140; 86225; 86431; 86704; 86706; 86780; 86803; 87340; 87389; 87491; 87591; 93005

== ENCOUNTER → 2025-01-28 08:07 | Outpatient (BNV) | payer OTHER, SELFPAY | PROVIDERS: PCP Internal Medicine; Visit Provider Internal Medicine Cardiovascular Disease | DX: Z13.6 Encounter for screening for cardiovascular disorders (principal) | CPT/HCPCS: 93010 ==

== ENCOUNTER 2025-02-07 13:30 | Outpatient (RCR) | payer OTHER, SELFPAY ==
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
[2025-01-21 10:36] VITALS: BP 112/68; PULSE 72; RESP 18; TEMP 36.5
--- NOTE | 2025-01-21 16:31 | PC.ADMIT ---
Wilmar Magana is a 44 year old female who was referred to the [facility] after a recent inpatient stay where she self presented to the ED and was subsequently admitted from 12/22/24 -01/03/2025? [facility] at [facility] [place].. Wilmar endorsed suicidal ideation with multiple plans including overdosing on medications and cutting her wrists. Wilmar reports high levels of anxiety, increased depression and feelings of hopelessness. She indicated that she has been struggling with life stressors, is not finding beata in activities, is isolative and wants to all of the time. I'm here because they recommended that I do it,(Social work on M3 inpatient) I have tried everything else, I figured why not, I am tired of living like this, here is my hail Germaine- I have constant thoughts of harming myself-(cutting), but I have not done that since 2 weeks before I went in-patient on December 21, it is so hard not to. I don't want to , I just don't want to live like this anymore- my mother tried OD when I was a kid, I know how that made me feel, I WILL NOT make my kids feel that way. Her sleep and her appetite have been poor. She reports putting on 10 pounds while inpatient. Wilmar reports poor sleep-on average 4 hours of broken sleep -it takes about an hour to fall asleep, ?I have racing thoughts, replaying old conversations, previous trauma,over and over and over?? During the admission process she was alert and oriented and very forthcoming with information. She endorses poor concentration, but is treatment oriented. She denies substance use, no alcohol since before her admission and only socially at that time.??
--- NOTE | 2025-01-25 14:16 | HO.PHPPROGNO ---
Subjective Subjective Reason For Visit: SI,depression Assessment & Plan Assessment & Plan (1) MDD (major depressive disorder), recurrent severe, without psychosis: Status: Acute Code(s): F33.2 - Major depressive disorder, recurrent severe without psychotic features (2) Attention-deficit hyperactivity disorder, unspecified type: Status: Acute Code(s): F90.9 - Attention-deficit hyperactivity disorder, unspecified type (3) Posttraumatic stress disorder: Status: Acute Code(s): F43.10 - Post-traumatic stress disorder, unspecified Certification I certify that partial hospital treatment is medically necessary due to the symptoms and problems resulting from the patient's mental illness and the failure to treat the patient at the partial hospital level of care would likely result in the patient requiring inpatient psychiatric care which could not be prevented at a less intensive level of care. Total time managing care of this patient today ____ minutes. Discharge Plan Discharge Attending provider: Janiya Arnold Medications: New lisdexamfetamine 10 mg capsule 10 mg PO QAM Qty: 30 0RF Rx Instructions: Partial Fill upon patient request. guanfacine 1 mg tablet extended release 24 hr 1 mg PO DAILY Qty: 30 0RF desvenlafaxine succinate 25 mg tablet extended release 24 hr 25 mg PO DAILY Qty: 30 0RF No Action metoprolol succinate 25 mg tablet extended release 24 hr 25 mg PO DAILY clonidine HCl 0.2 mg Tablet 0.2 mg PO BEDTIME 30 Days Qty: 30 0RF Protocol: Hold for SBP< HOLD for SBP < : 90 trazodone 100 mg tablet 200 mg PO BEDTIME PRN (Reason: Insomnia) Vraylar 1.5 mg capsule 3 mg PO DAILY Print Language: Liberian
--- NOTE | 2025-01-25 22:56 | P.PNPSP_ITS ---
Subjective Subjective Date of Service: 01/25/25 Reason For Visit: SI,depression Interim History: Patient brought in letter with medication history limited genetic information other than being in a slow metabolizer or psychotropic medication. We reviewed information patient has had longstanding treatment resistant depression. Most medication trials were ineffective and often required higher dosing (if the patient noted to be slow metabolizer). Has also done T MS ketamine ECT which w ere also ineffective. When asked if any medication has been helpful for her young thin she recalls being somewhat helpful was Concerta she says this was stopped to try other medications not sure why this was not restarted per masspat she was last prescribed 0 10/2023. She has a VNS in place, discharging and impulse every 5 minutes which is mildly distressing alters patient's voice and rhythm and breathing has not been felt to be helpful was strongly advised to go see her outpatient provider to have this turned off she has not been seen by her provider Samara Mcdonald since 10/2024, prior to her IP admission in December. Reviewed attention focus issues which are longstanding especially attention right dysregulation executive dysfunction. She also endorses mood reactivity and some interpersonal hypersensitivity although is fairly well-related and emotionally regulated during our meeting today. She denies any AH VH. SI or HI. She has a complex past medical history review of systems reveals issues with various rashes, myalgias, fatigue, other nonspecific neurological symptoms. She is noted to have a mild erythematous patch over her cheeks and is reportedly diagnosed with SLE. Medication Compliance: Yes Side effects from medications: No Attending Groups: Yes Review of Systems Acute medical concerns: No Mental Status Exam Mental Status Exam Narrative: Alert, oriented, in no acute distress. Calm, cooperative, engaged. No psychomotor agitation or neurovegetative retardation. Eye contact maintained. Mood depressed, affect constricted. Speech normal. Thought process linear, coherent. Thought content related to stressors, transient hopelessness, denies SI or HI. No paranoia or delusional content elicited. No evidence of psychosis. Insight and judgment - fair but adequate. Patient Appearance: Appropriate Patient Orientation: Person, Place, Time and Situation Level of Consciousness: Awake Patient Behavior: Appropriate and Cooperative Mood Description: Calm and Anxious Affect Description: Expansive Patient Cognition Impaired: No Ability to Follow Directions: Good Speech Pattern: Clear Assessment & Plan Assessment & Plan (1) MDD (major depressive disorder), recurrent severe, without psychosis: Status: Acute Code(s): F33.2 - Major depressive disorder, recurrent severe without psychotic features (2) Attention-deficit hyperactivity disorder, unspecified type: Status: Acute Code(s): F90.9 - Attention-deficit hyperactivity disorder, unspecified type (3) Posttraumatic stress disorder: Status: Acute Code(s): F43.10 - Post-traumatic stress disorder, unspecified Plan cont PHP will plan to start Vyvanse 10 mg qam will plan to start guanfacine ER 1 mg qd (consider hold hits ing/discont metoprolol) start Pristiq 25 mg qd continue Vraylar 3 mg qd continue metoprolol ER 25 mg qd for now (will plan to hold when starting guanfacine) continue trazodone 200 mg qhs prn sleep Routine labwork, AI panel, nutritional panel given chronicity of TRD and active symptoms on ROS EKG as indicated UDS as indicated continue to monitor Patient educated on: diagnosis, medication risk/benefits and medical condition Informed Consent: understands Reason for contiued partial hosp. stay Substantial Risk for: inability to function and med/psych decompensation Certification I certify that partial hospital treatment is medically necessary due to the symptoms and problems resulting from the patient's mental illness and the failure to treat the patient at the partial hospital level of care would likely result in the patient requiring inpatient psychiatric care which could not be prevented at a less intensive level of care. Total time managing care of this patient today __30__ minutes. Discharge Plan Discharge Attending provider: Janiya Arnold Medications: New lisdexamfetamine 10 mg capsule 10 mg PO QAM Qty: 30 0RF Rx Instructions: Partial Fill upon patient request. guanfacine 1 mg tablet extended release 24 hr 1 mg PO DAILY Qty: 30 0RF desvenlafaxine succinate 25 mg tablet extended release 24 hr 25 mg PO DAILY Qty: 30 0RF Continued clonidine HCl 0.2 mg Tablet 0.2 mg PO BEDTIME 30 Days Qty: 30 0RF Protocol: Hold for SBP< HOLD for SBP < : 90 trazodone 100 mg tablet 200 mg PO BEDTIME PRN (Reason: Insomnia) Vraylar 1.5 mg capsule 3 mg PO DAILY No Action metoprolol succinate 25 mg tablet extended release 24 hr 25 mg PO DAILY Print Language: Croatian
--- NOTE | 2025-01-27 14:29 | HO.PHP ---
Clients case was opened and reviewed in teams today.
--- NOTE | 2025-01-31 14:08 | HO.PHP ---
[facility] staff member followed up with Wilmar due to her not engaging in the first group and being tearful. Wilmar informed the clinician that she is having a challenging time because she found out her mother is dying and she is trying to cope with those emotions. Wilmar also disclosed that a traumatic event where she witnessed a 6 year old be killed in front of her at the age of 1010 years old has been affecting her. Wilmar expressed that she is receiving flashbacks of this event due to it occurring around this time of year. Wilmar stated that there are a lot of environmental triggers. [facility] staff member empathized with Wilmar and engaged in reflective listening. [facility] staff member explored any safety concerns. Wilmar reported thoughts of SI (wanting to ), no plan or intent. Wilmar also expressed SH without a plan or intent. Wilmar disclosed that her protective factors are her children and . Wilmar stated that her mother attempted suicide when she was a child and could never do that to her children because she recalls how that made her feel. [facility] staff member was receptive. Wilmar shared that talking about what she is going through is challenging, in which [facility] staff member suggested that during her time here to focus on coping skills. Wilmar was in agreement.
--- NOTE | 2025-02-02 23:09 | HO.PHPPROGNO ---
Subjective Subjective Date of Service: 02/01/25 Reason For Visit: SI,depression Interim History: NO change, still struggling with anxiety, low mood. Reviewed lab work. SHe had started on the desvenlafaxine (instead of guanfacine) in the afternoon, had not noticed a change in anxiety and stopped after 2 days. SHe has not yet started on guanfacine and was unable to pickle cutter Vyvanse (which may need PA). If unable to fill will consider whether a different stimulant or modafinil would be approved. Memantine was also discussed as treatment option for cognition, may also help fibromyalgia although nature of some of her chronic pain is unclear. WIll start desvenlafaxine. Medication Compliance: Yes Side effects from medications: No Attending Groups: Yes Review of Systems Acute medical concerns: No Mental Status Exam Mental Status Exam Narrative: Alert, oriented, in no acute distress. Calm, cooperative, engaged. No psychomotor agitation or neurovegetative retardation. Eye contact maintained. Mood depressed, affect constricted. Speech normal. Thought process linear, coherent. Thought content related to stressors, transient hopelessness, denies SI or HI. No paranoia or delusional content elicited. No evidence of psychosis. Insight and judgment - fair but adequate. 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 - Disorder of carnitine metabolism, unspecified Assessment and Plan: asso w MDD and TRD Plan cont PHP will plan to start Vyvanse 10 mg qam will plan to start guanfacine ER 1 mg qd (consider hold hits ing/discont metoprolol) start Pristiq 25 mg qd continue Vraylar 3 mg qd continue metoprolol ER 25 mg qd for now (will plan to hold when starting guanfacine) continue trazodone 200 mg qhs prn sleep Routine labwork, AI panel, nutritional panel given chronicity of TRD and active symptoms on ROS start L-carnitine 500 mg qd, eventually BID as tolerated (recheck levels in 3-6 months) EKG as indicated UDS as indicated continue to monitor Patient educated on: diagnosis and medication risk/benefits Informed Consent: understands Reason for contiued partial hosp. stay Substantial Risk for: inability to function and med/psych decompensation Certification I certify that partial hospital treatment is medically necessary due to the symptoms and problems resulting from the patient's mental illness and the failure to treat the patient at the partial hospital level of care would likely result in the patient requiring inpatient psychiatric care which could not be prevented at a less intensive level of care. Total time managing care of this patient today __30__ minutes. Discharge Plan Discharge Attending provider: Janiya Arnold Medications: New lisdexamfetamine 10 mg capsule 10 mg PO QAM Qty: 30 0RF Rx Instructions: Partial Fill upon patient request. guanfacine 1 mg tablet extended release 24 hr 1 mg PO DAILY Qty: 30 0RF desvenlafaxine succinate 25 mg tablet extended release 24 hr 25 mg PO DAILY Qty: 30 0RF modafinil 100 mg tablet 100 mg PO QAM Qty: 30 0RF L-Carnitine 500 mg tablet 500 mg PO BID Qty: 60 0RF Rx Instructions: must administer with a meal/food Continued clonidine HCl 0.2 mg Tablet 0.2 mg PO BEDTIME 30 Days Qty: 30 0RF Protocol: Hold for SBP< HOLD for SBP < : 90 trazodone 100 mg tablet 200 mg PO BEDTIME PRN (Reason: Insomnia) Vraylar 1.5 mg capsule 3 mg PO DAILY dextroamphetamine-amphetamine [Adderall XR] 5 mg capsule,extended release 24hr 5 mg PO QAM Qty: 30 0RF Rx Instructions: Partial Fill upon patient request. No Action metoprolol succinate 25 mg tablet extended release 24 hr 25 mg PO DAILY Stand Alone Forms: Patient Portal Discharge page Print Language: Italian
--- NOTE | 2025-02-04 11:36 | HO.PHP ---
Pt was having a hard time this morning. She was dysregulated in group 1 and visibly crying and upset. This resume writer met with her to discuss concerns. She stated her mother is dying and has a DNR/DNI, she is a waitng a call from her father at any time. She was triggered by a pt that was wearing shorts with visible cuts on their legs. She has her own hx of self-harm. This was addressed separately with other pt in question. Pt was encouraged to attend the second group for weekend planning, and she could leave early for the day due to all that is going on, and she does not want to regress in her progress. No immediate safety concerns noted at this time.
--- NOTE | 2025-02-07 22:56 | HO.PHPPROGNO ---
Subjective Subjective Date of Service: 02/07/25 Reason For Visit: SI,depression Assessment & Plan Certification I certify that partial hospital treatment is medically necessary due to the symptoms and problems resulting from the patient's mental illness and the failure to treat the patient at the partial hospital level of care would likely result in the patient requiring inpatient psychiatric care which could not be prevented at a less intensive level of care. Total time managing care of this patient today ____ minutes. Discharge Plan Discharge Attending provider: Janiya Arnold Medications: New guanfacine 1 mg tablet extended release 24 hr 1 mg PO DAILY Qty: 30 0RF modafinil 100 mg tablet 100 mg PO QAM Qty: 30 0RF L-Carnitine 500 mg tablet 500 mg PO BID Qty: 60 0RF Rx Instructions: must administer with a meal/food risperidone 0.25 mg tablet 0.125 mg PO BID Qty: 30 0RF desvenlafaxine 50 mg tablet extended release 24 hr 50 mg PO DAILY Qty: 30 0RF Continued clonidine HCl 0.2 mg Tablet 0.2 mg PO BEDTIME 30 Days Qty: 30 0RF Protocol: Hold for SBP< HOLD for SBP < : 90 trazodone 100 mg tablet 200 mg PO BEDTIME PRN (Reason: Insomnia) Vraylar 1.5 mg capsule 3 mg PO DAILY dextroamphetamine-amphetamine [Adderall XR] 5 mg capsule,extended release 24hr 5 mg PO QAM Qty: 30 0RF Rx Instructions: Partial Fill upon patient request. No Action metoprolol succinate 25 mg tablet extended release 24 hr 25 mg PO DAILY Stand Alone Forms: Patient Portal Discharge page Patient Education: Depression (DC) Print Language: [place]ib[place]ian
--- NOTE | 2025-02-09 08:05 | PC.NURSE ---
Patient reports she has a PCP Dr. Best however is looking for a new PCP. We called two PCP's she was interested in going to however both providers were not taking new patients. Patient plans to look on her own for a new PCP.
== END 2025-02-07 23:59 | disposition home or self-care (01) ==
LOC: HO.PHPA 13:30
PROVIDERS: Visit Provider Psychiatry & Neurology Psychiatry
DX: F33.2 Major depressive disorder, recurrent severe without psychotic features (principal); F90.9 Attention-deficit hyperactivity disorder, unspecified type; F43.10 Post-traumatic stress disorder, unspecified; E71.40 Disorder of carnitine metabolism, unspecified; F60.9 Personality disorder, unspecified; Z79.899 Other long term (current) drug therapy
CPT/HCPCS: 90791; 90853